=== PATIENT | female | born 1975 | race Caucasian/White ===

== ENCOUNTER 2016-06-03 18:49 | Inpatient (IN) | payer MEDICARE, MEDICAID ==
--- NOTE | 2016-06-03 19:27 | ED ---
Psych HPI - General Chief Complaint: Psychiatric Symptoms Stated Complaint: Petition Time Seen by Provider: 06/03/16 19:06 Source: patient, police, RN notes reviewed Mode of arrival: ambulatory - History of Present Illness Initial Comments: 41 yo female presents to the ER with cc of a petition. The physician patient has a history of bipolar schizoaffective disorder. Patient has been drinking for judgments she is not seeking mental health treatment and they are concerned that she may need for discharge to home. Patient does not know why she is here she denies any suicidal or homicidal thoughts. She states everyone here hates her. She states she strained to the state. She states that she does not need mental health she thinks clearly she has not been seen mental health services. Patient denies any acute health concerns. Patient denies any recent fever, chills, shortness of breath, chest pain, back pain, abdominal pain, nausea vomiting, numbness or tingling, dysuria or hematuria, constipation or diarrhea, headaches or visual changes, or any other current symptoms. - Related Data Home Medications Medication Instructions Recorded Confirmed Dextroamphetamine/Amphetamine 20 mg PO BID 06/03/16 06/03/16 [Adderall] Allergies Allergy/AdvReac Type Severity Reaction Status Date / Time haloperidol [From Haldol] Allergy Unknown Verified 06/03/16 19:38 haloperidol lactate Allergy Unknown Verified 06/03/16 19:38 [From Haldol] paliperidone [From Invega] Allergy Unknown Verified 06/03/16 19:38 Penicillins Allergy Unknown Verified 06/03/16 19:38 quetiapine fumarate Allergy Unknown Verified 06/03/16 19:38 [From Seroquel] zolpidem tartrate Allergy Unknown Verified 06/03/16 19:38 [From Ambien] Review of Systems ROS Statement: Those systems with pertinent positive or pertinent negative responses have been documented in the HPI. ROS Other: All systems not noted in ROS Statement are negative. Past Medical History Past Medical History: No Reported History Additional Past Medical History / Comment(s): ADHD History of Any Multi-Drug Resistant Organisms: None Reported Past Surgical History: No Surgical Hx Reported Additional Past Surgical History / Comment(s): pt not answering questions well Past Anesthesia/Blood Transfusion Reactions: No Reported Reaction Past Psychological History: ADD/ADHD, Schizoaffective Disorder Smoking Status: Current every day smoker Past Alcohol Use History: None Reported, Occasional Additional Past Alcohol Use History / Comment(s): Pt denies any current or past history of SA. Per discharge summary dated 10/25/13 hx of amphetamine abuse. She is a smoker's 10 cigarettes per day since she was 13 years of age. She denies any marijuana or street drug use. She denies any alcohol use or abuse. Past Drug Use History: None Reported Additional Drug Use History / Comment(s): Pt denies any current or past history of SA. - Past Family History Father Additional Family Medical History / Comment(s): Patient refuses to give any information on her family including her mother and father. General Exam Limitations: no limitations General appearance: alert, in no apparent distress Head exam: Present: atraumatic Neck exam: Present: normal inspection. Absent: tenderness, meningismus, lymphadenopathy Respiratory exam: Present: normal lung sounds bilaterally. Absent: respiratory distress, wheezes, rales, rhonchi, stridor Cardiovascular Exam: Present: regular rate, normal rhythm, normal heart sounds. Absent: systolic murmur, diastolic murmur, rubs, gallop, clicks Neurological exam: Present: alert, oriented X3, CN II-XII intact. Absent: motor sensory deficit Psychiatric exam: Absent: homicidal ideation, suicidal ideation Skin exam: Present: warm, dry, intact, normal color. Absent: rash Course Vital Signs 06/03/16 06/03/16 19:02 19:33 Temperature 99.6 F Pulse Rate 126 H 113 H Respiratory 18 18 Rate Blood Pressure 145/104 131/80 O2 Sat by Pulse 98 95 Oximetry Medical Decision Making - Medical Decision Making 41 yo female presents to the ER with cc of position. The patient has no idea why she is here. She denies any suicidal homicidal ideation. Patient states the patient is suffering from poor judgment. This time the patient does not appear in acute medical emergencies. This and patient is cleared to be evaluated by psychiatry. At this time patient does have a certain position on the chart. The patient will be admitted to psychiatry. - Lab Data Lab Results 06/03/16 Range/Units 19:25 Urine Opiates Screen Not Detected (NotDetected) Ur Oxycodone Screen Not Detected (NotDetected) Urine Methadone Screen Not Detected (NotDetected) Ur Propoxyphene Screen Not Detected (NotDetected) Ur Barbiturates Screen Not Detected (NotDetected) U Tricyclic Antidepress Not Detected (NotDetected) Ur Phencyclidine Scrn Not Detected (NotDetected) Ur Amphetamines Screen Not Detected (NotDetected) U Methamphetamines Scrn Not Detected (NotDetected) U Benzodiazepines Scrn Not Detected (NotDetected) Urine Cocaine Screen Not Detected (NotDetected) U Marijuana (THC) Screen Not Detected (NotDetected) Disposition Clinical Impression: Bipolar disorder, Noncompliance with treatment Disposition: TRANSFER TO PSYCH HOSP/UNIT Time of Disposition: 21:01 Decision Date: 06/03/16 Decision Time: 21:01
[2016-06-03] MEDS ORDERED: ZIPRASIDONE 20 MG VIAL IM PRN (22:19)
[2016-06-03] MEDS ORDERED: MAGNESIUM HYDROXIDE 2,400 MG/10 ML CUP PO PRN (22:19)
[2016-06-03] MEDS ORDERED: MAG HYDROX/AL HYDROX/SIMETH 30 ML CUP PO PRN (22:19)
[2016-06-03] MEDS ORDERED: LORazepam 2 MG/ML SYRINGE IM PRN (22:21)
[2016-06-03] MEDS: NICOTINE 14MG/24HR PATCH TRANSDERM SCH (22:31)
[2016-06-03 23:13] VITALS: BMI 39.6
[2016-06-04] MEDS: LORazepam 1 MG TAB PO PRN (00:55)
[2016-06-04 09:15] LABS: Basophils # (A) 0.1 k/uL (0-0.2); Basophils % (A) 1 %; CH 29.7; CHCM 33.2; Eosinophils # (A) 0.1 k/uL (0-0.7); Eosinophils % (A) 1 %; HDW 2.61; HGB 16.3 gm/dL (11.4-16.0); Luc # (Auto) 0.19; Luc % (Auto) 2; Lymphocytes % (A) 23 %; MCH 28.8 pg (25.0-35.0); MCHC 32.1 g/dL (31.0-37.0); MCV 89.8 fL (80.0-100.0); Mean Platelet Volume 6.2; Monocytes # (A) 0.5 k/uL (0-1.0); Monocytes % (A) 6 %; Neutrophils # (A) 5.8 k/uL (1.3-7.7); Neutrophils % (A) 67 %; RBC 5.67 m/uL (3.80-5.40); WBC 8.6 k/uL (3.8-10.6)
[2016-06-04 09:23] LABS: Anion Gap 12 mmol/L; Blood Urea Nitrogen 9 mg/dL (7-17); Calcium 9.2 mg/dL (8.4-10.2); Carbon Dioxide 27 mmol/L (22-30); Chloride 103 mmol/L (98-107); Glucose 103 mg/dL (74-99); Potassium 4.7 mmol/L (3.5-5.1); Sodium 142 mmol/L (137-145)
[2016-06-04 09:42] LABS: Non-African American GFR(MDRD) >60 (>60 ml/min/1.73 sqM)
[2016-06-04] MEDS: NICOTINE 14MG/24HR PATCH TRANSDERM SCH (10:07)
--- NOTE | 2016-06-04 12:14 | P.HP ---
Psychiatric H&P - . H&P Date: 06/04/16 History & Physical: IDENTIFYING DATA: Ms. Wakefield is a 41-year-old female who has a history of a schizoaffective disorder. She presented to [facility] involuntarily A school social worker from [facility] completed a Petition for Mental Health Treatment and Dr. Bates completed the initial Clinical Certificate. HISTORY OF PRESENT ILLNESS: According to the Petition she has a she has been refusing prescribes her psychotropic medications. On the Clinical Certificate Dr. Bates wrote "She was brought to [facility] on 05/01/2016 by [facility] deputy. Since then she has refused to keep to [facility] appointments. She has refused it takes antipsychotic medications. She believes her sister told her to jump out of a window." According to the information obtained by the psychiatric nurse nutrition specialist, Dr. Bates went to the [facility] and arrange for a petition and completed the initial Clinical Certificate. She denied the need for medication and essentially reported that "if only people would stop talking about her and saying mean things she doesn't need medications." In the emergency room she was pleasant but paranoid. She expressed a belief that nurses have been talking bad about her and telling lies about her. I spoke with Dr. bee. He stated he was concerned about her mental status because she had refused to attend 2 scheduled appointments with him. She has refused to take prescribed risperidone. He was concerned about continued decompensation and talked about severe episodes of psychosis when she went extended periods without antipsychotic medications. Ms. Wakefield cannot explain the reason for this hospitalization. She repeatedly stated that she does not have a problem and she has not a danger to herself or others. She was unable to explain the reason for the home visit by Dr. Bates. She stated that she was in an apartment for several months and left at the behest of her mother and sister. She alleged that her mother and sister were telling her to jump out of the window. She alleged that her mother and her sister told her to jump out of a window during telephone conversations (she repeatedly denied that she was experiencing auditory hallucinations). After she left the apartment she went to a friend's house and for an unexplained reason the friend called the [facility]'s Department. The deputy chief magistrate told her that she had refused to leave the friend's home. However, she denied that her friend had asked her to leave. The deputy took her to [facility] who assisted with placement at [facility]. She denied that she has had problems at [facility]. She denied that staff at [facility] have raised concerns about her behavior or mental health. She denied that staff or other residents at [facility] have been harassing her or making life difficult for her. She does not believe that she has a mental illness. She believes that her multiple hospitalizations, involuntary psychiatric treatment and prescriptions of psychotropic medication are the result of a conspiracy by her ex- and her in-laws. Her mother and her sister also conspiring to make people believe that she has a mental illness. She believes that Dr. Bates is "in on the conspiracy ... siding with her in-laws against her". Several times during the interview she stated that she has been off a court order since December and is not obliged to take medication. She stated that the "database programmer analyst" told her that she does not need to take (psychiatric) medications if she does not want to. She denies a need for mental health treatment and does not want to take a psychotropic medication. Several times during the interview she requested a prescription for Adderall. She talked about her difficulty with concentration and attention and boasted about the beneficial effects of Adderall. PAST PSYCHIATRIC HISTORY: Her mental illness appears to developed in her 30s and her first hospitalization was at this facility in March 2008. She presented to Hospital after making suicidal statements to her . The initial assessment described flight of ideas, tangentiality and pressured speech. Since the initial admission she has had approximately 15 admissions to this facility and several to other psychiatric hospitals. Her most recent psychiatric hospitalization appears to have been at this facility in April 2015; her discharge diagnosis was schizoaffective disorder and her discharge medications included Risperdal Consta. According to the information from [facility] she developed galactorrhea from the risperidone. According to Dr. Bates she is most stable when receiving long-acting injectable antipsychotic medications. She is able to function independently at community and does not require inpatient psychiatric care. PAST MEDICAL HISTORY: She has no history of major medical illnesses ALLERGIES: According to EMR she has multiple ALLERGIES including ALLERGIES to Ambien, Seroquel, penicillins, Invega and Haldol. SUBSTANCE USE HISTORY: She described occasional use of alcohol and denied use of drugs including marijuana. She has never attended a substance abuse treatment program.. Tobacco use: She smokes 1/2-1 pack of cigarettes per day; she is not interested in smoking cessation FAMILY PSYCHIATRIC/SUBSTANCE USE HISTORY: According to the record her mother has a history of schizophrenia. She stated that her sister also has a history of mental illness.. LEGAL HISTORY: She is not on parole, proposed probation or has pending charges. According to the court docket from [facility] probate [address] she has had charges for domestic violence, assault and battery, and breaking and entry without salesman/owner's permission. She has had no felony charges. SOCIAL HISTORY: His born and raised in [place]. She stated she attended special education but graduated from high school. She is and her has custody of their 2 children. She has 1 son and a daughter. She has unsupervised visitation of her daughter on Sundays. She is unemployed and receives social security disability. MENTAL STATUS EXAM: She presented as a obese 41-year-old female who was pleasant on approach. She had long disheveled hair. She maintained eye contact and appeared to attend to interview. She had no distinction features or prominent physical abnormalities. He she had a blunted facial expression. She was alert and oriented to person, place and time. She showed no abnormality of psychomotor activity. She had a normal gait and station. Her speech was spontaneous with slight increase in rate. She had no articulation difficulties. Her affect was dysphoric mood consisting of mixture of anxiety, depression and suspiciousness. She denied suicidal ideation or wishes. She denied homicidal ideation. She expressed feelings of hopelessness regard to this hospitalization and the allegedly unfounded belief that she has a mental illness. She obsessed over her ex-, divorce and the belief that her in-laws are conspiring to label her with a mental illness. She did not express ideas of reference. She expressed the organize paranoid beliefs that she is a subject of the conspiracy by her , her in-laws, possibly her mother and sister and Dr. Bates to make her appear as though she has a mental illness and requires mental health treatment. Her thinking was concrete but her associations appeared organized and consistent with her chronic delusional belief. She perseverated on her chronic and organized paranoid beliefs. She did not demonstrate neologisms or blocking. She denied hallucinations and did not appear to be responding to internal stimuli. Global impression of intellect is average to below. She has no insight or understanding of her illness or need for mental health treatment We completed the [facility] Cognitive Assessment. Her total score was 23/30. A score less than 26 is usually considered consistent with cognitive impairment. She demonstrated no impairment in visual spatial or executive functioning. She had 1 error with naming; misidentifying the image of a Lion for [place]. She showed impairments in attention and was not able to repeat 5 digits forward or 3 digits backwards. She had difficulty with language exercises failing to accurately repeat the sentences. However, she showed no impairment in fluid verbal fluency. She gave abstract interpretation of the similarities (training- bicycle and watch-ruler). She remembered 3 of the 5 memory words. She was fully oriented to date, month, year, day, place and city. STRENGTHS: Good physical health, strong support from [facility], stable income, stable housing. WEAKNESSES: Lack of insight and her chronic mental illness, poor compliance with mental health treatment. IMPRESSION: If she is a 41-year-old female who has a well established diagnosis of schizoaffective disorder. She has a family history of mental illness. She has had multiple psychiatric hospitalizations and involuntary psychiatric hospitalizations. She has poor insight or understanding of her illness and has refused mental health treatment. She presented to unit involuntarily with concerns about noncompliance with recommended mental health treatment, paranoia and change of [facility]. Her performance on formal mental status testing is consistent with impairments of attention and concentration. She denies that she has a mental illness or needs would benefit from mental health treatment. She has a fixed and apparently chronic paranoid belief that she is subjective the conspiracy to make it appear as though she has a mental illness and requires mental health treatment. PRINCIPLE DIAGNOSIS: Schizoaffective disorder, noncompliance with mental health treatment RECOMMENDATION: Continue inpatient psychiatric hospitalization for treatment of her chronic mental illness. Complete a psychiatric Clinical Certificate and proceed with involuntary hospitalization. Although her outpatient psychiatrist' s recommendation to start Prolixin Decanoate when we obtain an involuntary treatment order. Treatment with a psychostimulant at this time is not indicated. Continue with lorazepam 1 mg by mouth/IM every 8 hours when necessary for agitation and/or Geodon 20 mg IM twice a day when necessary for agitation. Allergies Allergy/AdvReac Type Severity Reaction Status Date / Time haloperidol [From Haldol] Allergy Unknown Verified 06/04/16 00:11 haloperidol lactate Allergy Unknown Verified 06/04/16 00:11 [From Haldol] paliperidone [From Invega] Allergy Unknown Verified 06/04/16 00:11 Penicillins Allergy Unknown Verified 06/04/16 00:11 quetiapine fumarate Allergy Unknown Verified 06/04/16 00:11 [From Seroquel] zolpidem tartrate Allergy Unknown Verified 06/04/16 00:11 [From Ambien] Vital Signs Temp 98.2 F 06/04/16 02:56 Pulse 78 06/04/16 02:56 Resp 20 06/04/16 02:56 BP 136/68 06/04/16 02:56 Pulse Ox 95 06/04/16 02:56 Intake & Output 06/03/16 06/04/16 06/04/16 18:59 06:59 18:59 Weight 98.43 kg Laboratory Last Values Urine Opiates Screen Not Detected (NotDetected) 06/03/16 19:25 Ur Oxycodone Screen Not Detected (NotDetected) 06/03/16 19:25 Urine Methadone Screen Not Detected (NotDetected) 06/03/16 19:25 Ur Propoxyphene Screen Not Detected (NotDetected) 06/03/16 19:25 Ur Barbiturates Screen Not Detected (NotDetected) 06/03/16 19:25 U Tricyclic Antidepress Not Detected (NotDetected) 06/03/16 19:25 Ur Phencyclidine Scrn Not Detected (NotDetected) 06/03/16 19:25 Ur Amphetamines Screen Not Detected (NotDetected) 06/03/16 19:25 U Methamphetamines Scrn Not Detected (NotDetected) 06/03/16 19:25 U Benzodiazepines Scrn Not Detected (NotDetected) 06/03/16 19:25 Urine Cocaine Screen Not Detected (NotDetected) 06/03/16 19:25 U Marijuana (THC) Screen Not Detected (NotDetected) 06/03/16 19:25 06/04/16 07:57 06/04/16 10:06 06/04/16 10:27 06/04/16 12:07
[2016-06-04] MEDS: ACETAMINOPHEN TAB 325 MG TAB PO PRN (23:01)
[2016-06-05] MEDS: NICOTINE 14MG/24HR PATCH TRANSDERM SCH ×2 (10:19→16:38)
--- NOTE | 2016-06-05 14:03 | P.PN ---
Progress Note - Text SUBJECTIVE: Since he was distress when I informed her that the plan is to proceed with involuntary hospitalization and seek a court order for inpatient outpatient mental health treatment. She perseverated on her fixed and chronic belief that she does not have a mental illness and that her current predicament (hospitalizations, involuntary treatment orders and ongoing mental health treatment) was caused by her ex-. She frequently spoke as thought she believes that her ex- continues to influence the mental health system to keep her in treatment against her will. She denied problems or concerns and repeatedly stated that she is doing well with no mental health treatment and no psychiatric prescriptions. She believes that her outpatient psychiatrist is fabricating her history of mental illness and psychiatric problems. Her plan is to save money and move to [place]. She has gone so far as to identify potential apartments and plans to secure apartment before she leaves for [place]. She believes that leaving [place] is the only way for her to escape the arm of the mental health system. OBJECTIVE: She presented as a moderately obese 41-year-old woman who looks younger than his stated age. She had long somewhat unkept hair. She maintained eye contact and attended to the interview. She had no distinguishing features or prominent physical abnormalities. She had a distressed facial expression. She showed no abnormality of psychomotor activity. Her speech was spontaneous with slight increase in rate and rhythm. Her affect was dysphoric and consistent with her mood. She denied suicidal ideation or wishes. She denied homicidal ideation. She denied feeling depressed but expresses feelings of hopelessness regarding her inability to escape the mental system. She ruminates about the ongoing and chronic fixed delusional belief that she is subjective conspiracy involving her ex-, her in-laws and the mental health system to make her appear as though she has a mental illness. She did not express ideas of reference. Her thinking was abstract and associations were logical and consistent with her chronic beliefs. She did not demonstrate neologisms or blocking. She denied hallucinations and did not appear to be responding to internal stimuli. ASSESSMENT: She continues to deny the need for mental health treatment or the prescription of psychotropic medications. PLAN: We completed the second clinical certain and submitted necessary paperwork to proceed with involuntary hospitalization. She has a probate hearing scheduled for 06/10/2016 at 1:30 PM. Continue to encourage participation in therapeutic groups and activities. Evaluate clinical status response to treatment daily basis. Continue to engage in a discussion of mental health treatment.
[2016-06-06] MEDS: ACETAMINOPHEN TAB 325 MG TAB PO PRN (01:55)
[2016-06-06] MEDS: NICOTINE 14MG/24HR PATCH TRANSDERM SCH ×2 (09:55→10:17)
--- NOTE | 2016-06-06 14:37 | P.PN ---
Progress Note - Text SUBJECTIVE: Noelle continued to complain about this hospitalization. She denies the need for inpatient hospitalization or psychotropic medications (with the exception of a psychostimulant such as Adderall). She was less preoccupied about her chronic and fixed belief that her ex-, her ex-in-laws and community mental health have conspired to make it appear as though she has a mental illness. She denies problems with sleep or appetite. She enjoys participation in therapeutic groups and activities. OBJECTIVE: She presented as a neatly dressed and groomed 41-year-old moderately obese female who was pleasant on approach. She maintained eye contact and engaged in interview. She had no distinguishing features or prominent physical abnormalities. She had a bright facial expression. She was alert and oriented to person, place and time. She showed no abnormality of psychomotor behavior. She had no abnormal involuntary movements. She had a normal gait and station. Her speech was spontaneous normal rate, rhythm and volume. Her affect was bright, stable and appropriate. She denied suicidal ideation or wishes. She denied homicidal ideation. She denied depressive cognitions such as hopelessness, helplessness and worthlessness. She did not express obsessions, phobias, or ideas of reference. She was not overtly paranoid, suspicious or guarded. Her thinking was concrete but her associations were coherent and logical. She denied hallucinations and did not appear to be responding to internal stimuli. ASSESSMENT: She shows no overt psychotic symptoms other than the chronic belief that she does not have a mental illness, does not require mental health treatment and that she has been falsely labeled with a mental illness. PLAN: We are awaiting the probate hearing per the recommendation of her community mental health treatment team.
[2016-06-07] MEDS: NICOTINE 14MG/24HR PATCH TRANSDERM SCH (10:55)
--- NOTE | 2016-06-07 14:04 | CONS ---
DATE OF CONSULTATION: 06/04/2016 CHIEF COMPLAINT: Schizoaffective disorder. HISTORY OF PRESENT ILLNESS: This is another psych admission for this 41-year-old white female patient. She is very difficult to get any history from. She has apparently been petitioned in. She does not know why she is in the hospital. REVIEW OF SYSTEMS: She denies any headaches, focal neurologic deficits, change in vision or hearing, cough, chest pain, hemoptysis, heart disease, murmurs, rheumatic fever, hypertension, abdominal pain, vomiting, diarrhea, hematemesis, melena, pancreatitis, ulcer disease, food intolerance, diarrhea, constipation, jaundice, hepatitis, cirrhosis, hematuria, frequency, urgency, renal disease, bone or joint problems, diabetes, etc. Past medical history, family history and personal and social histories reveal that she is not allergic to any medication. She has not been taking any medicines prior to coming in. She has had 2 pregnancies and 2 deliveries, apparently. She had an ectopic removed according to the surgical history. She does smoke. PHYSICAL EXAMINATION: Blood pressure 132/90, pulse 68, respirations 12 and she is afebrile. GENERAL: She appeared to be well developed, well nourished, in no acute distress. She was overweight. Skin color is normal and the skin is warm and dry. Lymph nodes are not enlarged. Head, ears, eyes, nose, mouth, and throat were normal. Neck veins are not distended. Thyroid is not enlarged. Chest is clear. Cardiac exam is normal. Abdomen is soft and nontender. Extremities are normal. IMPRESSION: Schizoaffective disorder. RECOMMENDATIONS: None at this time.
--- NOTE | 2016-06-07 16:17 | P.PN ---
Progress Note - Text Interval history: Patient seen in cross coverage today for Dr. Balderas. [facility] by history [facility] and was [facility]arily admitted to the inpatient psychiatric unit. She reports that her previous treatment order with [facility] ended in December 2015. She makes reference to wanting to be out of the hospital. She relays that prior to being at the [facility] she had some experiences with people who turned on her and then subsequently went to the [facility]. She is not currently on psychotropic medication. Mental status exam: She is alert and cooperative with the interview. Her speech is fluent, not rapid or pressured. She describes her mood is doing okay. She denies any thoughts of harm to self others. She does not report any hallucinations she denies any paranoid thoughts. She does not show any current agitation. Plan: We'll continue to monitor for psychiatric symptoms. We'll continue to cover this patient for Dr. Balderas through the weekend.
[2016-06-08] MEDS: NICOTINE 14MG/24HR PATCH TRANSDERM SCH (10:54)
--- NOTE | 2016-06-08 15:50 | P.PN ---
Progress Note - Text Interval history: Patient seen in [facility] today for Dr. Balderas. She came to the session after just having been in a group. She is not currently on any standing psychotropic medication. Mental status exam: She is alert and cooperative with the interview. Her affect shows range. When asked regarding her mood she says "I'm 41, I need a man." He denies any paranoid thoughts. She denies any thoughts of harm to self or others. She denies any hallucinations. She does not show any agitation. Plan: Dr. Balderas will be resuming care this patient starting tomorrow. We' ll continue to monitor for any psychiatric symptoms.
[2016-06-09] MEDS: NICOTINE 14MG/24HR PATCH TRANSDERM SCH (08:53)
--- NOTE | 2016-06-09 12:42 | P.PN ---
Progress Note - Text SUBJECTIVE: I reviewed the medical record, discuss treatment and treatment plan during team meeting and interviewed Ms. Wakefield. She is a 41-year-old female with history of a schizophrenia. She presented to unit [facility]arily from an [facility]. [facility] initiated the petition because she has failed to keep scheduled outpatient appointments and refused to take prescribed psychotropic medications. Since admission she has shown no behavioral problems. She is pleasant and has engaged in therapeutic groups and activities. She denied problems or concerns other than wishing to be discharged in order to "resumed my life". She denied having auditory or visual hallucinations, ideas reference, thought insertion, thought broadcasting or thought control. During our interview he did not perseverate on her chronic paranoid beliefs that she is subject to conspiracy to make it appear as though she has a mental illness. OBJECTIVE: She presented as a casually groomed 41-year-old moderately obese female who was pleasant on approach. She maintained eye contact and attended to the interview. She had no distinguishing features or prominent physical abnormalities. She had a bright facial expression. She was alert and oriented to person, place and time. She showed no abnormality of psychomotor activity. She had a normal gait and station. Her speech was spontaneous with normal rate, rhythm and volume. She had no articulation difficulties. Her affect was bright, stable and appropriate. She denied suicidal ideation or wishes. She denied homicidal ideation. She denied depressive cognitions such as hopelessness, helplessness and worthlessness. She did not express ideas reference or paranoid ideation. Her thinking was concrete but her associations were coherent, logical and goal directed. She denied hallucinations and did not appear as though she were responding to internal stimuli ASSESSMENT: Overall she appears minimally mentally ill. PLAN: She has a probate hearing 04/09/2017 at 1:30 PM. We'll follow the recommendations are to mental health and if she receives an involuntary order start oral Prolixin with plan to transition to Prolixin decanoate. Continue to encourage participation in therapeutic groups and activities. Evaluate clinical status and response to treatment daily basis.
[2016-06-10] MEDS: NICOTINE 14MG/24HR PATCH TRANSDERM SCH (08:28)
[2016-06-10] MEDS: NICOTINE 7MG/24HR PATCH TRANSDERM SCH (09:37)
--- NOTE | 2016-06-10 15:29 | P.PN ---
Progress Note - Text SUBJECTIVE: I reviewed the medical record, interviewed Ms. Wakefield and discussed her treatment and treatment plan during team meeting. She had a probate hearing at 1:30 this afternoon and received a 60/90 day combined treatment order. She was pleasant on approach until we discussed the probate hearing and the recommendation for treatment. She became acutely agitated and reiterated that she does not have a mental illness and does not need mental health treatment. She complained about services through [facility] and alleged that her outpatient psychiatrist as well as her in-laws have conspired against her. After she returned from the probate hearing she demanded discharge. I explained that we would need to start Prolixin once we establish that she is not ALLERGIC then we'll begin Prolixin decanoate. She demanded to receive the Prolixin decanoate immediately and be discharged back to the [facility]. When I told her that she no longer has about [facility] she became acutely distressed and accused us is lying to her. She stated she has money and will find a hotel room. OBJECTIVE: She presented as a casually groomed mildly obese 41-year-old woman. Who was initially pleasant but became increasingly distressed when he talked about the court hearing and the requirement for mental health treatment. She had a distressed facial expression. She became increasingly agitated as her discussing the mandates for mental health treatment. Her speech became loud with increased rate and rhythm. Her affect was labile and at times intense and appropriate. She continues to maintain that she has no thoughts of suicide. She denied homicidal ideation. She denied feeling hopeless, helpless or worthless. She ruminates about her belief that she is subject to conspiracy to make it appear as though she has a mental illness. She did not express ideas reference but remained suspicious and paranoid. He towards [facility]. Her thinking was concrete but his associations were coherent and logical. She denied hallucinations and did not appear to be responding to internal stimuli. ASSESSMENT: Following the probate hearing she has agreed to begin Prolixin. She continues to maintain chronic and well-established paranoid delusional beliefs regarding her mental illness and need for treatment. PLAN: Continue inpatient psychiatric treatment for treatment of her chronic psychosis. Begin Prolixin 1 mg by mouth and Prolixin decanoate 0.5 milligrams IM tomorrow. Coordinate discharge with [facility] including placement in an appropriate setting. Continue just 15 minute checks. Encourage continued participation in therapeutic groups and activities. Evaluate clinical status and response to treatment on a daily basis.
[2016-06-11] MEDS: LORazepam 1 MG TAB PO PRN (00:05)
[2016-06-11 03:32] VITALS: TEMP 98
[2016-06-11] MEDS: NICOTINE 7MG/24HR PATCH TRANSDERM SCH (09:41)
[2016-06-11] MEDS ORDERED: fluPHENAZine DECANOATE 25 MG/ML 5ML MDV IM ONE (13:45)
--- NOTE | 2016-06-11 13:52 | P.PN ---
Progress Note - Text SUBJECTIVE: I reviewed the medical record, interviewed Ms. Wakefield and discussed her treatment and treatment plan during team meeting. She remains angry over the voluntary hospitalization process and angry that she is required to take psychotropic medication. She repeated her fixed belief that she does not have a mental illness and that her ex- and the mental health system are conspiring to make it appear as though he has a mental illness. She also believes that some social security administration is colluding with [facility] because they have awarded her disability for a psychiatric illness when she "does not have a mental illness." She agreed to take or Prolixin and agreed to start Prolixin decanoate. She denied side effects to initial 1 mg dose of Prolixin. OBJECTIVE: She presented as a casually groomed 41-year-old woman who was moderately obese. She maintained eye contact and attended to the interview. She had a distressed facial expression. She was alert and oriented to person, place and time. She was not agitated or restless. Her speech was spontaneous with increased rate and volume. Her affect was labile and at times intense but appropriate to her mood. She denied suicidal ideation ideation or wishes. She denied homicidal ideation. She denied depressive cognitions including hopelessness, helplessness and worthlessness. She ruminated about her problems with the mental health system and denied the need for mental health treatment. She did not express ideas of reference. Her thinking was concrete but her associations were coherent and logical. She denied hallucinations and did not appear to be responding to internal stimuli. ASSESSMENT: She received a 60/90 day combined involuntary treatment order following her probate hearing on 06/10/2016. She has a fixed and well organized chronic delusional belief without any apparent acute psychotic symptoms. PLAN: Continue inpatient hospitalization until able to secure appropriate placement. Continue Prolixin 1 mg daily. Begin Prolixin decanoate 12.5 mg IM today. Coordinate discharge with [facility]. Encouraged continued participation in therapeutic groups and activities. Evaluate clinical status response to treatment daily basis.
[2016-06-12 05:09] VITALS: BP 113/72; PULSE 91; RESP 12
[2016-06-12] MEDS: NICOTINE 7MG/24HR PATCH TRANSDERM SCH (09:39)
--- NOTE | 2016-06-12 16:13 | P.DS ---
Providers Date of admission: 06/03/16 21:57 Attending physician: Mohit Balderas MD Consults: 06/03/16 22:19 Consult Physician Routine Consulting Provider: Jacob William Consult Reason/Comments: h and p, eval and tx, r/o metabolic disorder Do you want consulting provider notified?: Yes, Notify in am Primary care physician: Jacob William - Discharge Diagnosis(es) (1) Schizoaffective disorder Current Visit: Yes Status: Chronic Priority: High (2) Noncompliance with treatment Current Visit: Yes Status: Chronic Priority: High Hospital Course: Ms. Wakefield is a 41-year-old female who has a history of a schizoaffective disorder. She presented to [facility] involuntarily A social contact worker from [facility] completed a Petition for Mental Health Treatment and Dr. Bates completed the initial Clinical Certificate. According to the Petition she has a she has been refusing prescribes her psychotropic medications. On the Clinical Certificate Dr. Bates wrote "She was brought to [facility] on 05/01/2016 by [facility]'s deputy. Since then she has refused to keep to [facility] appointments. She has refused it takes antipsychotic medications. She believes her sister told her to jump out of a window." According to the information obtained by the psychiatric nurse application release manager, Dr. Bates went to the [facility] and arrange for a petition and completed the initial Clinical Certificate. She denied the need for medication and essentially reported that "if only people would stop talking about her and saying mean things she doesn't need medications." In the emergency room she was pleasant but paranoid. She expressed a belief that nurses have been talking bad about her and telling lies about her. I spoke with Dr. bee. He stated he was concerned about her mental status because she had refused to attend 2 scheduled appointments with him. She has refused to take prescribed risperidone. He was concerned about continued decompensation and talked about severe episodes of psychosis when she went extended periods without antipsychotic medications. Ms. Wakefield cannot explain the reason for this hospitalization. She repeatedly stated that she does not have a problem and she has not a danger to herself or others. She was unable to explain the reason for the home visit by Dr. Bates. She stated that she was in an apartment for several months and left at the behest of her mother and sister. She alleged that her mother and sister were telling her to jump out of the window. She alleged that her mother and her sister told her to jump out of a window during telephone conversations (she repeatedly denied that she was experiencing auditory hallucinations). After she left the apartment she went to a friend's house and for an unexplained reason the friend called the [facility]'s Department. The diving coach told her that she had refused to leave the friend's home. However, she denied that her friend had asked her to leave. The deputy took her to [facility] who assisted with placement at [facility]. She denied that she has had problems at [facility]. She denied that staff at [facility] have raised concerns about her behavior or mental health. She denied that staff or other residents at [facility] have been harassing her or making life difficult for her. She does not believe that she has a mental illness. She believes that her multiple hospitalizations, involuntary psychiatric treatment and prescriptions of psychotropic medication are the result of a conspiracy by her ex- and her in-laws. Her mother and her sister also conspiring to make people believe that she has a mental illness. She believes that Dr. Bates is "in on the conspiracy ... siding with her in-laws against her". Several times during the interview she stated that she has been off a court order since December and is not obliged to take medication. She stated that the "recreation activities coordinator" told her that she does not need to take (psychiatric) medications if she does not want to. She denies a need for mental health treatment and does not want to take a psychotropic medication. Several times during the interview she requested a prescription for Adderall. She talked about her difficulty with concentration and attention and boasted about the beneficial effects of Adderall. We admitted her to the psychiatric unit involuntarily. We completed the second Clinical Certificate and submitted the Petition and supporting documents to probate court. She refused psychotropic medications because she does not believe that she has a mental illness. She has a chronic and fixed belief that she is subjective of a conspiracy by [facility] and her ex-in-laws to make it appear as though she has a mental illness. She also believes that [employer] is complicit with the conspiracy because they have awarded her Social Security disability even though she does not have a mental illness. She was pleasant and cooperative otherwise throughout the hospitalization. She participated in therapeutic groups and activities. She had a probate hearing on 06/10/2016 and received a 60/90 day combined treatment order. Following the involuntary treatment order she accepted Prolixin 1 mg daily. The following day we administered 5 mg of Prolixin decanoate without incident. [facility] arranged for her to return to the [facility]. At the time of discharge she continued to maintain she does not have a mental illness and has been unfairly treated by the [facility]. However she agreed to continue with prescribed medication because she is "court ordered". Patient Condition at Discharge: Good Plan - Discharge Summary New Discharge Prescriptions: Nicotine 7Mg/24Hr Patch [Habitrol] 1 patch TRANSDERM DAILY #14 patch fluPHENAZine [Prolixin] 1 mg PO DAILY #30 tab Discharge Medication List Nicotine 7Mg/24Hr Patch [Habitrol] 1 patch TRANSDERM DAILY #14 patch 06/12/16 [ Rx] fluPHENAZine [Prolixin] 1 mg PO DAILY #30 tab 06/12/16 [Rx] Follow up Appointment(s)/Referral(s[facility] - 06/17/16 4:40 pm (Dr Bates) [facility] [Outside] - 06/13/16 11:15 am ([facility] with Surendra Garrison) None,Stated [REFERRING] - 1-2 days Patient Instructions/Handouts: How to Stop Smoking (DC), Bipolar Disorder (DC) , Schizoaffective Disorder (DC), Generalized Anxiety Disorder (DC) Discharge Disposition: HOME SELF-CARE
== END 2016-06-12 17:36 | disposition home or self-care (01) | DRG 885 ==
LOC: EC 18:49 → 3MHU 21:57
PROVIDERS: ADMIT Psychiatry & Neurology Psychiatry; ATTEND Psychiatry & Neurology Psychiatry
DX: F25.0 Schizoaffective disorder, bipolar type (principal); F17.210 Nicotine dependence, cigarettes, uncomplicated; F90.9 Attention-deficit hyperactivity disorder, unspecified type; Z81.8 Family history of other mental and behavioral disorders; Z88.0 Allergy status to penicillin; Z88.8 Allergy status to other drugs, medicaments and biological substances
CPT/HCPCS: 80048; 80306; 82075; 84443; 85025; 99285

== ENCOUNTER 2018-07-13 23:22 | Emergency (ER) | payer MEDICARE, OTHER ==
--- NOTE | 2018-07-13 23:55 | ED ---
Psych HPI - General Chief Complaint: Psychiatric Symptoms Stated Complaint: Mental Health Time Seen by Provider: 07/13/18 23:35 Source: patient Mode of arrival: ambulatory - History of Present Illness Initial Comments: Is a 43-year-old female with extensive psychiatric history is brought to the emergency department today by police with a pickup order. Initially patient stated that she didn't know why she is being picked up but then she did admit that she has been noncompliant with her home medications. Patient denies any acute complaints she denies any suicidal or homicidal ideation. She states that she's been tending to activities of daily living she's been bathing keep clean. - Related Data Home Medications Medication Instructions Recorded Confirmed ALPRAZolam [Xanax] 0.5 mg PO HS PRN 07/14/18 07/14/18 Dextroamphetamine/Amphetamine 20 mg PO BID 07/14/18 07/14/18 [Adderall] Lurasidone [Latuda] 40 mg PO DAILY 07/14/18 07/14/18 Allergies Allergy/AdvReac Type Severity Reaction Status Date / Time haloperidol [From Haldol] Allergy Unknown Verified 07/14/18 10:28 haloperidol lactate Allergy Unknown Verified 07/14/18 10:28 [From Haldol] paliperidone [From Invega] Allergy Unknown Verified 07/14/18 10:28 Penicillins Allergy Unknown Verified 07/14/18 10:28 quetiapine fumarate Allergy Unknown Verified 07/14/18 10:28 [From Seroquel] zolpidem tartrate Allergy Unknown Verified 07/14/18 10:28 [From Ambien] Review of Systems ROS Statement: Those systems with pertinent positive or pertinent negative responses have been documented in the HPI. ROS Other: All systems not noted in ROS Statement are negative. Past Medical History Past Medical History: No Reported History Additional Past Medical History / Comment(s): ADHD History of Any Multi-Drug Resistant Organisms: None Reported Past Surgical History: No Surgical Hx Reported Additional Past Surgical History / Comment(s): pt not answering questions well Past Anesthesia/Blood Transfusion Reactions: No Reported Reaction Past Psychological History: ADD/ADHD, Schizoaffective Disorder Smoking Status: Current every day smoker Past Alcohol Use History: Occasional Past Drug Use History: Marijuana - Past Family History Father Additional Family Medical History / Comment(s): Patient refuses to give any information on her family including her mother and father. General Exam - General Exam Comments Initial Comments: Physical Exam GENERAL: Patient is well-developed and well-nourished. Patient is nontoxic and well- hydrated and is in no distress. HENT: Normocephalic, Atraumatic. EYES: PERRL, EOMI PULMONARY: Unlabored respirations. No audible rales rhonchi or wheezing was noted. CARDIOVASCULAR: There is a regular rate and rhythm without any murmurs gallops or rubs. ABDOMEN: Soft and nontender with normal bowel sounds. SKIN: Psoriatic rash : Deferred NEUROLOGIC: Patient is alert and oriented x3. Moving all extremities spontaneously MUSCULOSKELETAL: Normal extremities with adequate strength and full range of motion. No lower extremity swelling or edema. No calf tenderness. PSYCHIATRIC: Odd affect, denies SI/HI Limitations: no limitations Limitations: altered mental status Course Vital Signs 07/13/18 07/14/18 07/14/18 23:27 06:00 07:15 Temperature 98.7 F 98.4 F Pulse Rate 91 84 Respiratory 18 18 16 Rate Blood Pressure 113/81 130/94 O2 Sat by Pulse 96 95 Oximetry 07/14/18 08:00 Temperature Pulse Rate Respiratory 18 Rate Blood Pressure O2 Sat by Pulse Oximetry Medical Decision Making - Medical Decision Making She was seen and evaluated history is obtained from the patient and pickers material handlers order Patient with psychiatric history noncompliant with her home medications presenting via PD with a pickup order. Review of paperwork does reveal that it is from 2018 and not a current pickers material handlers order EPS evaluated patient, she is stable for out patient care from their standpoint, however they state we can contact [facility] in the morning. Patient was ordered a regular diet Patient care was signed out to oncoming physician at 7 AM Per the day shift doctor patient was evaluated by [facility] and subsequently discharged home in stable condition. - Lab Data Result diagrams: 07/14/18 00:25 07/14/18 01:20 Lab Results 07/14/18 07/14/18 07/14/18 Range/Units 00:25 01:20 06:00 WBC 9.7 (3.8-10.6) k/uL RBC 5.00 (3.80-5.40) m/uL Hgb 14.7 (11.4-16.0) gm/dL Hct 43.6 (34.0-46.0) % MCV 87.2 (80.0-100.0) fL MCH 29.4 (25.0-35.0) pg MCHC 33.7 (31.0-37.0) g/dL RDW 14.8 (11.5-15.5) % Plt Count 344 (150-450) k/uL Neutrophils % 67 % Lymphocytes % 23 % Monocytes % 5 % Eosinophils % 3 % Basophils % 1 % Neutrophils # 6.5 (1.3-7.7) k/uL Lymphocytes # 2.3 (1.0-4.8) k/uL Monocytes # 0.5 (0-1.0) k/uL Eosinophils # 0.3 (0-0.7) k/uL Basophils # 0.1 (0-0.2) k/uL Sodium 138 (137-145) mmol/L Potassium 4.3 (3.5-5.1) mmol/L Chloride 105 (98-107) mmol/L Carbon Dioxide 27 (22-30) mmol/L Anion Gap 6 mmol/L BUN 12 (7-17) mg/dL Creatinine 0.65 (0.52-1.04) mg/dL Est GFR (CKD-EPI)AfAm >90 (>60 ml/min/1.73 sqM) Est GFR (CKD-EPI)NonAf >90 (>60 ml/min/1.73 sqM) Glucose 102 H (74-99) mg/dL Calcium 9.0 (8.4-10.2) mg/dL Total Bilirubin 0.4 (0.2-1.3) mg/dL AST 19 (14-36) U/L ALT 29 (9-52) U/L Alkaline Phosphatase 73 (38-126) U/L Total Protein 6.8 (6.3-8.2) g/dL Albumin 3.7 (3.5-5.0) g/dL Urine Color Yellow Urine Appearance Cloudy H (Clear) Urine pH 7.0 (5.0-8.0) Ur Specific [place] 1.014 (1.001-1.035) Urine Protein Negative (Negative) Urine Glucose (UA) Negative (Negative) Urine Ketones Negative (Negative) Urine Blood Negative (Negative) Urine Nitrite Negative (Negative) Urine Bilirubin Negative (Negative) Urine Urobilinogen <2.0 (<2.0) mg/dL Ur Leukocyte Esterase Large H (Negative) Urine RBC 2 (0-5) /hpf Urine WBC 24 H (0-5) /hpf Ur Squamous Epith Cells 7 H (0-4) /hpf Urine Mucus Rare H (None) /hpf Urine HCG, Qual (Not Detectd) Urine Opiates Screen Not Detected (NotDetected) Ur Oxycodone Screen Not Detected (NotDetected) Urine Methadone Screen Not Detected (NotDetected) Ur Propoxyphene Screen Not Detected (NotDetected) Ur Barbiturates Screen Not Detected (NotDetected) U Tricyclic Antidepress Not Detected (NotDetected) Ur Phencyclidine Scrn Not Detected (NotDetected) Ur Amphetamines Screen Detected H (NotDetected) U Methamphetamines Scrn Not Detected (NotDetected) U Benzodiazepines Scrn Detected H (NotDetected) Urine Cocaine Screen Not Detected (NotDetected) U Marijuana (THC) Screen Not Detected (NotDetected) 07/14/18 Range/Units 06:00 WBC (3.8-10.6) k/uL RBC (3.80-5.40) m/uL Hgb (11.4-16.0) gm/dL Hct (34.0-46.0) % MCV (80.0-100.0) fL MCH (25.0-35.0) pg MCHC (31.0-37.0) g/dL RDW (11.5-15.5) % Plt Count (150-450) k/uL Neutrophils % % Lymphocytes % % Monocytes % % Eosinophils % % Basophils % % Neutrophils # (1.3-7.7) k/uL Lymphocytes # (1.0-4.8) k/uL Monocytes # (0-1.0) k/uL Eosinophils # (0-0.7) k/uL Basophils # (0-0.2) k/uL Sodium (137-145) mmol/L Potassium (3.5-5.1) mmol/L Chloride (98-107) mmol/L Carbon Dioxide (22-30) mmol/L Anion Gap mmol/L BUN (7-17) mg/dL Creatinine (0.52-1.04) mg/dL Est GFR (CKD-EPI)AfAm (>60 ml/min/1.73 sqM) Est GFR (CKD-EPI)NonAf (>60 ml/min/1.73 sqM) Glucose (74-99) mg/dL Calcium (8.4-10.2) mg/dL Total Bilirubin (0.2-1.3) mg/dL AST (14-36) U/L ALT (9-52) U/L Alkaline Phosphatase (38-126) U/L Total Protein (6.3-8.2) g/dL Albumin (3.5-5.0) g/dL Urine Color Urine Appearance (Clear) Urine pH (5.0-8.0) Ur Specific [place] (1.001-1.035) Urine Protein (Negative) Urine Glucose (UA) (Negative) Urine Ketones (Negative) Urine Blood (Negative) Urine Nitrite (Negative) Urine Bilirubin (Negative) Urine Urobilinogen (<2.0) mg/dL Ur Leukocyte Esterase (Negative) Urine RBC (0-5) /hpf Urine WBC (0-5) /hpf Ur Squamous Epith Cells (0-4) /hpf Urine Mucus (None) /hpf Urine HCG, Qual Not Detected (Not Detectd) Urine Opiates Screen (NotDetected) Ur Oxycodone Screen (NotDetected) Urine Methadone Screen (NotDetected) Ur Propoxyphene Screen (NotDetected) Ur Barbiturates Screen (NotDetected) U Tricyclic Antidepress (NotDetected) Ur Phencyclidine Scrn (NotDetected) Ur Amphetamines Screen (NotDetected) U Methamphetamines Scrn (NotDetected) U Benzodiazepines Scrn (NotDetected) Urine Cocaine Screen (NotDetected) U Marijuana (THC) Screen (NotDetected) Disposition Clinical Impression: Noncompliance with treatment Disposition: HOME SELF-CARE Condition: Stable Instructions (If sedation given, give patient instructions): Schizophrenia (ED) Is patient prescribed a controlled substance at d/c from ED?: No Referrals: Jacbo William MD [Primary Care Provider] - 1-2 days
[2018-07-14 00:39] LABS: Basophils # (A) 0.1 k/uL (0-0.2); Basophils % (A) 1 %; Eosinophils # (A) 0.3 k/uL (0-0.7); Eosinophils % (A) 3 %; HCT 43.6 % (34.0-46.0); HGB 14.7 gm/dL (11.4-16.0); Lymphocytes # (A) 2.3 k/uL (1.0-4.8); Lymphocytes % (A) 23 %; MCH 29.4 pg (25.0-35.0); MCHC 33.7 g/dL (31.0-37.0); MCV 87.2 fL (80.0-100.0); Mean Platelet Volume 6.6; Monocytes # (A) 0.5 k/uL (0-1.0); Monocytes % (A) 5 %; Neutrophils # (A) 6.5 k/uL (1.3-7.7); Neutrophils % (A) 67 %; Platelet Count 344 k/uL (150-450); RDW 14.8 % (11.5-15.5); WBC 9.7 k/uL (3.8-10.6)
[2018-07-14 01:34] LABS: ALT 29 U/L (9-52); AST 19 U/L (14-36); Albumin 3.7 g/dL (3.5-5.0); Alkaline Phosphatase 73 U/L (38-126); Anion Gap 6 mmol/L; Blood Urea Nitrogen 12 mg/dL (7-17); Carbon Dioxide 27 mmol/L (22-30); Chloride 105 mmol/L (98-107); Glucose 102 mg/dL (74-99); Potassium 4.3 mmol/L (3.5-5.1); Sodium 138 mmol/L (137-145); Total Bilirubin 0.4 mg/dL (0.2-1.3); Total Protein 6.8 g/dL (6.3-8.2)
[2018-07-14 06:08] VITALS: BP 130/94; TEMP 98.4
[2018-07-14 06:16] LABS: Appearance,Urine Cloudy (Clear); Bilirubin,Urine Negative (Negative); Blood,Urine Negative (Negative); Color,Urine Yellow; Glucose,Urine (UA) Negative (Negative); Ketones,Urine Negative (Negative); Leukocyte Esterase,Urine Large (Negative); Mucus,Urine Rare /hpf; Nitrite,Urine Negative (Negative); Protein,Urine Negative (Negative); RBC,Urine 2 /hpf (0-5); Specific Gravity,Urine 1.014 (1.001-1.035); Squamous Epithelial Cell,Urine 7 /hpf (0-4); Urobilinogen,Urine <2.0 mg/dL (<2.0); WBC,Urine 24 /hpf (0-5)
[2018-07-14 06:28] LABS: Amphetamine Screen,Urine Detected (NotDetected); Barbiturate Screen,Urine Not Detected (NotDetected); Benzodiazepines Screen,Urine Detected (NotDetected); Cocaine Screen,Urine Not Detected (NotDetected); Methadone Screen, Urine Not Detected (NotDetected); Opiate Screen,Urine Not Detected (NotDetected); Oxycodone Screen, Urine Not Detected (NotDetected); Phencyclidine Screen,Urine Not Detected (NotDetected); Tricyclic Antidepressant,Urine Not Detected (NotDetected); Urn Cannabinoid Scrn Not Detected (NotDetected)
[2018-07-14] MEDS ORDERED: fluPHENAZine DECANOATE 25 MG/ML 5ML MDV IM ONE (10:43)
[2018-07-15 08:23] VITALS: PULSE 84; RESP 18
== END 2018-07-14 12:15 | disposition home or self-care (01) ==
LOC: EC 23:22
DX: Z91.19 Patient's noncompliance with other medical treatment and regimen (principal); Z91.14 Patient's other noncompliance with medication regimen; F90.9 Attention-deficit hyperactivity disorder, unspecified type; F25.9 Schizoaffective disorder, unspecified; F17.200 Nicotine dependence, unspecified, uncomplicated; Z79.899 Other long term (current) drug therapy; Z88.0 Allergy status to penicillin; Z88.8 Allergy status to other drugs, medicaments and biological substances
CPT/HCPCS: 82075; 36415; 80053; 85025; 81001; 81025; 80306; 99284; 96372; J2680

== ENCOUNTER 2019-01-14 13:08 | Emergency (ER) | payer MEDICARE, OTHER ==
[2019-01-14 13:17] VITALS: RESP 18
[2019-01-14 13:57] LABS: Amphetamine Screen,Urine Not Detected (NotDetected); Barbiturate Screen,Urine Not Detected (NotDetected); Benzodiazepines Screen,Urine Not Detected (NotDetected); Cocaine Screen,Urine Not Detected (NotDetected); Methadone Screen, Urine Not Detected (NotDetected); Opiate Screen,Urine Not Detected (NotDetected); Oxycodone Screen, Urine Not Detected (NotDetected); Phencyclidine Screen,Urine Not Detected (NotDetected); Tricyclic Antidepressant,Urine Not Detected (NotDetected); Urn Cannabinoid Scrn Not Detected (NotDetected)
--- NOTE | 2019-01-14 15:12 | ED ---
Psych HPI - General Chief Complaint: Psychiatric Symptoms Stated Complaint: Mental health Time Seen by Provider: 01/14/19 13:18 Source: patient Mode of arrival: ambulatory - History of Present Illness Initial Comments: This 44-year-old white female presents with a complaint of depression. She states that she recently became homeless and is very depressed about this to the point that now she wants to kill herself. She has had some suicidal ideations with thoughts of potentially overdosing on medications. She states that she was living with her son for the last few days but she can longer live with him. She denies any current medical complaints. She denies any alcohol or drug abuse. No other complaints or modifying factors. - Related Data Home Medications Medication Instructions Recorded Confirmed ALPRAZolam [Xanax] 0.5 mg PO HS PRN 07/14/18 01/14/19 Dextroamphetamine/Amphetamine 20 mg PO BID 07/14/18 01/14/19 [Adderall] fluPHENAZine DECANOATE [Prolixin 25 mg IM [id number] 01/14/19 01/14/19 Decanoate] Allergies Allergy/AdvReac Type Severity Reaction Status Date / Time haloperidol [From Haldol] Allergy Unknown Verified 01/14/19 13:38 haloperidol lactate Allergy Unknown Verified 01/14/19 13:38 [From Haldol] paliperidone [From Invega] Allergy Unknown Verified 01/14/19 13:38 Penicillins Allergy Unknown Verified 01/14/19 13:38 quetiapine fumarate Allergy Unknown Verified 01/14/19 13:38 [From Seroquel] zolpidem tartrate Allergy Unknown Verified 01/14/19 13:38 [From Ambien] Review of Systems ROS Statement: Those systems with pertinent positive or pertinent negative responses have been documented in the HPI. ROS Other: All systems not noted in ROS Statement are negative. Past Medical History Past Medical History: No Reported History Additional Past Medical History / Comment(s): ADHD History of Any Multi-Drug Resistant Organisms: None Reported Past Surgical History: No Surgical Hx Reported Additional Past Surgical History / Comment(s): pt not answering questions well Past Anesthesia/Blood Transfusion Reactions: No Reported Reaction Past Psychological History: ADD/ADHD, Schizoaffective Disorder Smoking Status: Current every day smoker Past Alcohol Use History: Occasional Past Drug Use History: None Reported, Marijuana - Past Family History Father Additional Family Medical History / Comment(s): Patient refuses to give any information on her family including her mother and father. General Exam - General Exam Comments Initial Comments: GENERAL: The patient is well nourished and well hydrated. VITAL SIGNS: Heart rate, blood pressure, respiratory rate reviewed as recorded in nurse's notes. EYES: Pupils are round and reactive. Extraocular movements are intact. No conjunctival / lid redness or swelling. ENT: No external evidence of injury, swelling, or ecchymosis. Airway is patent. Throat is clear. NECK: Nontender. No swelling or evidence of injury. No subcutaneous emphysema. Trachea is midline. No thyroid mass. HEART: Regular rate and rhythm. Good peripheral pulses. LUNGS/CHEST: Breath sounds clear and equal bilaterally. No rales, rhonchi, or wheezes. No ecchymosis, subcutaneous emphysema, or tenderness. ABDOMEN: Abdomen soft without tenderness. No palpable masses or organomegaly. No peritoneal signs. No abdominal wall swelling or ecchymosis. EXTREMITIES: No extremity tenderness. Normal muscle tone and function. No thoracolumbar tenderness. NEUROLOGIC: Sensation is grossly intact. Cranial nerve exam reveals face is symmetrical, tongue is midline, speech is clear. SKIN: No abrasions or ecchymosis is noted. No induration or masses noted. PSYCHIATRIC: Alert and oriented. Appropriate behavior and judgment. Limitations: no limitations Course Vital Signs 01/14/19 13:13 Temperature 98 F Pulse Rate 96 Respiratory 18 Rate Blood Pressure 142/108 O2 Sat by Pulse 98 Oximetry Medical Decision Making - Medical Decision Making The patient is seen and examined. An alcohol breath test was done and is negative. The urine drug screen is negative. It is felt as though the patient can be medically cleared for further psychiatric evaluation. The case is discussed with the psychiatric nurse and they're very familiar with her. They do discussed in more detail and feel as though she is not suicidal. She essentially doesn't need a place to stay and they are going to call around for shelters for her. They feel as though she stable for discharge and I do agree. - Lab Data Lab Results 01/14/19 Range/Units 13:30 Urine Opiates Screen Not Detected (NotDetected) Ur Oxycodone Screen Not Detected (NotDetected) Urine Methadone Screen Not Detected (NotDetected) Ur Propoxyphene Screen Not Detected (NotDetected) Ur Barbiturates Screen Not Detected (NotDetected) U Tricyclic Antidepress Not Detected (NotDetected) Ur Phencyclidine Scrn Not Detected (NotDetected) Ur Amphetamines Screen Not Detected (NotDetected) U Methamphetamines Scrn Not Detected (NotDetected) U Benzodiazepines Scrn Not Detected (NotDetected) Urine Cocaine Screen Not Detected (NotDetected) U Marijuana (THC) Screen Not Detected (NotDetected) Disposition Clinical Impression: Depression, Homeless Disposition: HOME SELF-CARE Condition: Good Instructions (If sedation given, give patient instructions): Depression (ED) Is patient prescribed a controlled substance at d/c from ED?: No Referrals: Jacob William MD [Primary Care Provider] - 1-2 days Time of Disposition: 16:49
[2019-01-14 17:18] VITALS: BP 140/82; PULSE 78; TEMP 97.8
== END 2019-01-14 17:04 | disposition home or self-care (01) ==
LOC: EC 13:08
DX: F32.9 Major depressive disorder, single episode, unspecified (principal); F90.9 Attention-deficit hyperactivity disorder, unspecified type; F25.9 Schizoaffective disorder, unspecified; F17.200 Nicotine dependence, unspecified, uncomplicated; Z79.899 Other long term (current) drug therapy; Z59.0 Homelessness; Z88.0 Allergy status to penicillin; Z88.8 Allergy status to other drugs, medicaments and biological substances
CPT/HCPCS: 80306; 82075; 99285

== ENCOUNTER 2019-02-10 20:40 | Inpatient (IN) | payer MEDICARE, MEDICAID ==
--- NOTE | 2019-02-10 21:14 | ED ---
Psych HPI - General Chief Complaint: Psychiatric Symptoms Stated Complaint: Suicidal Time Seen by Provider: 02/10/19 21:03 Source: patient Mode of arrival: ambulatory - History of Present Illness Initial Comments: This patient is a 44-year-old woman who presents with complaint that she is feeling depressed and suicidal or guarding learning that she may need to have a CPAP machine for obstructive sleep apnea. The patient states that she had seen a physician today who felt that she needed the CPAP machine. Patient feels that her health is failing her so she feels like she wants to buy a gun and her life. MD Complaint: suicidal ideation, feels depressed Onset/Timin -: days(s) Associated Psychiatric Symptoms: depression, suicidal ideation History of same: No Improves With: none Worsens With: none Associated Symptoms: denies other symptoms - Related Data Home Medications Medication Instructions Recorded Confirmed ALPRAZolam [Xanax] 0.5 mg PO HS PRN 07/14/18 02/11/19 Dextroamphetamine/Amphetamine 20 mg PO BID 07/14/18 02/11/19 [Adderall] fluPHENAZine DECANOATE [Prolixin 25 mg IM [id number] 01/14/19 02/11/19 Decanoate] Allergies Allergy/AdvReac Type Severity Reaction Status Date / Time haloperidol [From Haldol] Allergy Unknown Verified 02/11/19 02:54 haloperidol lactate Allergy Unknown Verified 02/11/19 02:54 [From Haldol] paliperidone [From Invega] Allergy Unknown Verified 02/11/19 02:54 Penicillins Allergy Unknown Verified 02/11/19 02:54 quetiapine fumarate Allergy Unknown Verified 02/11/19 02:54 [From Seroquel] zolpidem tartrate Allergy Unknown Verified 02/11/19 02:54 [From Ambien] Review of Systems ROS Statement: Those systems with pertinent positive or pertinent negative responses have been documented in the HPI. ROS Other: All systems not noted in ROS Statement are negative. Constitutional: Denies: fever, chills Respiratory: Denies: cough, dyspnea, wheezes Cardiovascular: Denies: chest pain, palpitations, edema, syncope Gastrointestinal: Denies: abdominal pain, nausea, vomiting Genitourinary: Denies: dysuria, frequency Musculoskeletal: Denies: back pain Skin: Denies: rash Neurological: Denies: headache, weakness, numbness Past Medical History Past Medical History: No Reported History Additional Past Medical History / Comment(s): ADHD History of Any Multi-Drug Resistant Organisms: None Reported Past Surgical History: No Surgical Hx Reported Additional Past Surgical History / Comment(s): pt not answering questions well Past Anesthesia/Blood Transfusion Reactions: No Reported Reaction Past Psychological History: ADD/ADHD, Schizoaffective Disorder Smoking Status: Current every day smoker Past Alcohol Use History: Occasional Past Drug Use History: None Reported, Marijuana - Past Family History Father Additional Family Medical History / Comment(s): Patient refuses to give any information on her family including her mother and father. General Exam Limitations: no limitations General appearance: alert, in no apparent distress Head exam: Present: atraumatic, normocephalic Eye exam: Present: normal appearance. Absent: scleral icterus, conjunctival injection ENT exam: Present: normal oropharynx Neck exam: Present: normal inspection Respiratory exam: Present: normal lung sounds bilaterally. Absent: respiratory distress, wheezes, rales, rhonchi, stridor Cardiovascular Exam: Present: regular rate, normal rhythm, normal heart sounds. Absent: systolic murmur, diastolic murmur, rubs, gallop GI/Abdominal exam: Present: soft. Absent: distended, tenderness, guarding, rebound, rigid, mass Extremities exam: Present: normal inspection, normal capillary refill. Absent: pedal edema, calf tenderness Back exam: Present: normal inspection. Absent: CVA tenderness (R), CVA tenderness (L) Neurological exam: Present: alert Skin exam: Present: warm, dry, intact, normal color. Absent: rash Course Vital Signs 02/10/19 02/11/19 20:48 01:10 Temperature 98.7 F Pulse Rate 94 85 Respiratory 18 19 Rate Blood Pressure 121/87 117/71 O2 Sat by Pulse 94 L 98 Oximetry Medical Decision Making - Lab Data Lab Results 02/10/19 Range/Units 20:56 Urine Color Light Yellow Urine Appearance Clear (Clear) Urine pH 6.5 (5.0-8.0) Ur Specific [place] 1.007 (1.001-1.035) Urine Protein Negative (Negative) Urine Glucose (UA) Negative (Negative) Urine Ketones Negative (Negative) Urine Blood Negative (Negative) Urine Nitrite Negative (Negative) Urine Bilirubin Negative (Negative) Urine Urobilinogen <2.0 (<2.0) mg/dL Ur Leukocyte Esterase Moderate H (Negative) Urine RBC 1 (0-5) /hpf Urine WBC 14 H (0-5) /hpf Ur Squamous Epith Cells 4 (0-4) /hpf Amorphous Sediment Occasional H (None) /hpf Urine Opiates Screen Not Detected (NotDetected) Ur Oxycodone Screen Not Detected (NotDetected) Urine Methadone Screen Not Detected (NotDetected) Ur Propoxyphene Screen Not Detected (NotDetected) Ur Barbiturates Screen Not Detected (NotDetected) U Tricyclic Antidepress Not Detected (NotDetected) Ur Phencyclidine Scrn Not Detected (NotDetected) Ur Amphetamines Screen Not Detected (NotDetected) U Methamphetamines Scrn Not Detected (NotDetected) U Benzodiazepines Scrn Not Detected (NotDetected) Urine Cocaine Screen Not Detected (NotDetected) U Marijuana (THC) Screen Not Detected (NotDetected) Disposition Clinical Impression: Suicidal ideation, Mood disorder Disposition: TRANSFER TO PSYCH HOSP/UNIT Condition: Fair Is patient prescribed a controlled substance at d/c from ED?: No Referrals: Jacob William MD [Primary Care Provider] - 1-2 days
[2019-02-10 21:25] LABS: Amorphous Sediment,Urine Occasional /hpf; Appearance,Urine Clear (Clear); Bilirubin,Urine Negative (Negative); Blood,Urine Negative (Negative); Color,Urine Light Yellow; Glucose,Urine (UA) Negative (Negative); Ketones,Urine Negative (Negative); Leukocyte Esterase,Urine Moderate (Negative); Nitrite,Urine Negative (Negative); PH, Urine 6.5 (5.0-8.0); Protein,Urine Negative (Negative); RBC,Urine 1 /hpf (0-5); Specific Gravity,Urine 1.007 (1.001-1.035); Squamous Epithelial Cell,Urine 4 /hpf (0-4); Urobilinogen,Urine <2.0 mg/dL (<2.0); WBC,Urine 14 /hpf (0-5)
[2019-02-10 21:31] LABS: Amphetamine Screen,Urine Not Detected (NotDetected); Barbiturate Screen,Urine Not Detected (NotDetected); Benzodiazepines Screen,Urine Not Detected (NotDetected); Cocaine Screen,Urine Not Detected (NotDetected); Methadone Screen, Urine Not Detected (NotDetected); Opiate Screen,Urine Not Detected (NotDetected); Oxycodone Screen, Urine Not Detected (NotDetected); Phencyclidine Screen,Urine Not Detected (NotDetected); Tricyclic Antidepressant,Urine Not Detected (NotDetected); Urn Cannabinoid Scrn Not Detected (NotDetected)
[2019-02-11 03:34] VITALS: BMI 38.4
[2019-02-11] MEDS ORDERED: ACETAMINOPHEN TAB 325 MG TAB PO PRN (03:57)
[2019-02-11] MEDS ORDERED: ZIPRASIDONE 20 MG VIAL IM PRN (03:57)
[2019-02-11] MEDS ORDERED: MAGNESIUM HYDROXIDE 2,400 MG/10 ML CUP PO PRN (03:57)
[2019-02-11] MEDS ORDERED: MAG HYDROX/AL HYDROX/SIMETH 30 ML CUP PO PRN (03:57)
[2019-02-11] MEDS ORDERED: ALPRAZolam 0.5 MG TAB PO PRN (03:59)
[2019-02-11 08:28] LABS: Basophils # (A) 0.1 k/uL (0-0.2); Basophils % (A) 1 %; Eosinophils # (A) 0.6 k/uL (0-0.7); Eosinophils % (A) 7 %; HCT 47.3 % (34.0-46.0); HGB 16.1 gm/dL (11.4-16.0); Lymphocytes # (A) 1.9 k/uL (1.0-4.8); Lymphocytes % (A) 21 %; MCH 29.7 pg (25.0-35.0); MCV 87.4 fL (80.0-100.0); Mean Platelet Volume 6.1; Monocytes # (A) 0.5 k/uL (0-1.0); Monocytes % (A) 6 %; Neutrophils # (A) 5.8 k/uL (1.3-7.7); Neutrophils % (A) 63 %; Platelet Count 333 k/uL (150-450); RBC 5.41 m/uL (3.80-5.40); RDW 14.2 % (11.5-15.5); WBC 9.2 k/uL (3.8-10.6)
[2019-02-11 08:54] LABS: ALT 39 U/L (9-52); AST 24 U/L (14-36); African American GFR (CKD) >90 (>60 ml/min/1.73 sqM); Albumin 4.2 g/dL (3.5-5.0); Alkaline Phosphatase 71 U/L (38-126); Anion Gap 9 mmol/L; Bilirubin, Delta 0.1 mg/dL (0.0-0.2); Bilirubin,Unconjugated 0.3 mg/dL (0.0-1.1); Blood Urea Nitrogen 13 mg/dL (7-17); Calcium 9.5 mg/dL (8.4-10.2); Carbon Dioxide 24 mmol/L (22-30); Chloride 107 mmol/L (98-107); Cholesterol 205 mg/dL (<200); Glucose 101 mg/dL (74-99); HDL Cholesterol 32 mg/dL (40-60); LDL Cholesterol,Calculated 134 mg/dL (0-99); Potassium 4.6 mmol/L (3.5-5.1); Sodium 140 mmol/L (137-145); Total Bilirubin 0.4 mg/dL (0.2-1.3); Total Protein 7.8 g/dL (6.3-8.2); Triglycerides 197 mg/dL (<150)
[2019-02-11] MEDS: NICOTINE 14MG/24HR PATCH TRANSDERM SCH (09:14)
[2019-02-11] MEDS ORDERED: OLANZapine ODT 5 MG TAB PO PRN (13:14)
--- NOTE | 2019-02-11 13:39 | P.HP ---
Psychiatric H&P - . H&P Date: 02/11/19 History & Physical: IDENTIFYING Data: Noelle Wakefield is a 44-year-ol female who currently lives in a fpc, unemployed on SSD, has psychiatric history of schizoaffective disorder, and medical history of sleep apnea. The patient has been admitted to our inpatient psychiatric services after been transferred from [facility] ER. Patient was initially brought to ER by herself because of depression and suicidal ideation. The patient has been admitted on voluntarily basis to our service. CHIEF COMPLAINT: "Feeling depressed and having thoughts to kill myself." HISTORY OF PRESENT ILLNESS: As per ER note: " This patient is a 44-year-old woman who presents with complaint that she is feeling depressed and suicidal after she was told that she may need to have a CPAP machine for obstructive sleep apnea. The patient states that she had seen a physician today who felt that she needed the CPAP machine. Patient feels that her health is failing her so she feels like she wants to buy a gun and end her life." There is on psychiatric evaluation today, the patient reports feeling depressed and suicidal after she was kicked out from her friend's house 2 weeks ago and she has been homeless living in a fpc since then. She reports her friend has to get her out because there was an order of protection against her friend if the patient didn't leave the apartment. Patient was very fixated on getting help for housing and she reports feeling depressed, hopeless, helpless and suicidal because she has no stable place to live. She reports having suicidal thoughts and a plan to buy a gun and shot herself. The patient has established diagnosis of a schizoaffective disorder bipolar type, amphetamine use disorder and she has been followed by [facility] was a last time was seen there about 2 weeks ago. The patient is followed by the ACT team and she is currently on Prolixin 25 mg injection every 2 weeks was the last time he received 01/31/2019, and she is also on the role 20 mg twice daily, and Xanax 0.5 mg daily as needed. Patient denies any current manic symptoms, and he denies any current auditory or visual hallucinations. She denies feeling paranoid and no delusions could be elicited at this time. Patient denies any current nightmares or flashbacks and reports that she has to feel increasingly anxious but not currently. She denies any panic attacks. She denies any current self-injurious behavior. PAST PSYCHIATRIC HISTORY: Previous diagnoses: Schizoaffective disorder, amphetamine use disorder. Previous psychiatric hospitalizations: Multiple times "about 10 times". Patient claimed that she was admitted previously for no apparent reason. As per medical records the patient was last time hospitalized to this unit in 2017 and she received as a same diagnosis of schizoaffective disorder and was discharged at that time on oral Prolixin. Previous suicide attempts: Denies any previous suicidal attempts. Previous outpatient psychiatric treatment: Patient has been followed with [facility]. Current psychiatric medications: As per HPI. As per previous medical records the patient claimed director systems to [employer], Maury, Brandyn, and matt, and penicillin SUBSTANCE ABUSE HISTORY: Nicotine: Half-pack per day for more than 15 years. Alcohol: Denies alcohol drinking, Denies any use of street drugs including marijuana, opioid, cocaine, or methamphetamine. According to previous evaluation, the patient admitted for occasional alcohol use. She denies any previous substance use disorder treatment. Social History: The patient was born and raised in [place]. She graduated high school diploma from special education. Patient is and. She has 2 children one son and one daughter who are currently adults. She is currently unemployed and received Social Security disability. Patient has previous charges of domestic violence and assaultive battery. No report of current probation or pending charges. History of psychological trauma: She denies any history of psychological trauma FAMILY HISTORY: Reports her mother has schizophrenia and her sister suffered from mental illness. Medical History: Obstructive sleep apnea MENTAL STATUS EVALUATION: Appearance: Appears older than stated age, poorly groomed, above average body built, and no specific features. Gait/ posture: Steady gait, normal arm swinging, no abnormal movements, with relaxed posture. Attitude and Behavior: Superficially cooperative, intermittent eye contact during course of interview. Motor Activity: Increased psychomotor activity. Speech: spontaneous, normal rate, rhythm, and articulation. Normal volume. Not pressured. Language: Articulating, naming objects and repeat phrases. Mood: "Depressed" Affect: Constricted. Thought process: Linear, goal directed. Association: Not circumstantial, not tangential. Thought content: No delusions, reports suicidal thoughts, reports suicidal plan, denies homicidal thoughts, denies homicidal intentions, or plans. Perception: Denies any current auditory or visual hallucinations Alertness: No impairment. Concentration: Impaired Orientation: Oriented to time, place, person, and situation Insight regarding psychiatric condition: Limited Judgment regarding daily activities and social situation: Limited Strengths: Stable general medical condition. Stable income. Willing to get better. Challenges: Poor coping skills. Limited insight about her mental illness. Limited social support Allergies Allergy/AdvReac Type Severity Reaction Status Date / Time haloperidol [From Haldol] Allergy Unknown Verified 02/11/19 02:54 haloperidol lactate Allergy Unknown Verified 02/11/19 02:54 [From Haldol] paliperidone [From Invega] Allergy Unknown Verified 02/11/19 02:54 Penicillins Allergy Unknown Verified 02/11/19 02:54 quetiapine fumarate Allergy Unknown Verified 02/11/19 02:54 [From Seroquel] zolpidem tartrate Allergy Unknown Verified 02/11/19 02:54 [From Ambien] Vital Signs Temp 97.7 F 02/11/19 03:27 Pulse 85 02/11/19 03:27 Resp 16 02/11/19 03:27 BP 141/85 02/11/19 03:27 Pulse Ox 98 02/11/19 03:27 Intake & Output 02/10/19 02/11/19 02/11/19 18:59 06:59 18:59 Weight 96.252 kg Review of Lab results: Laboratory Last Values WBC 9.2 k/uL (3.8-10.6) 02/11/19 08:00 RBC 5.41 m/uL (3.80-5.40) H 02/11/19 08:00 Hgb 16.1 gm/dL (11.4-16.0) H 02/11/19 08:00 Hct 47.3 % (34.0-46.0) H 02/11/19 08:00 MCV 87.4 fL (80.0-100.0) 02/11/19 08:00 MCH 29.7 pg (25.0-35.0) 02/11/19 08:00 MCHC 34.0 g/dL (31.0-37.0) 02/11/19 08:00 RDW 14.2 % (11.5-15.5) 02/11/19 08:00 Plt Count 333 k/uL (150-450) 02/11/19 08:00 Neutrophils % 63 % 02/11/19 08:00 Lymphocytes % 21 % 02/11/19 08:00 Monocytes % 6 % 02/11/19 08:00 Eosinophils % 7 % 02/11/19 08:00 Basophils % 1 % 02/11/19 08:00 Neutrophils # 5.8 k/uL (1.3-7.7) 02/11/19 08:00 Lymphocytes # 1.9 k/uL (1.0-4.8) 02/11/19 08:00 Monocytes # 0.5 k/uL (0-1.0) 02/11/19 08:00 Eosinophils # 0.6 k/uL (0-0.7) 02/11/19 08:00 Basophils # 0.1 k/uL (0-0.2) 02/11/19 08:00 Sodium 140 mmol/L (137-145) 02/11/19 08:00 Potassium 4.6 mmol/L (3.5-5.1) 02/11/19 08:00 Chloride 107 mmol/L (98-107) 02/11/19 08:00 Carbon Dioxide 24 mmol/L (22-30) 02/11/19 08:00 Anion Gap 9 mmol/L 02/11/19 08:00 BUN 13 mg/dL (7-17) 02/11/19 08:00 Creatinine 0.73 mg/dL (0.52-1.04) 02/11/19 08:00 Est GFR (CKD-EPI)AfAm >90 (>60 ml/min/1.73 sqM) 02/11/19 08:00 Est GFR (CKD-EPI)NonAf >90 (>60 ml/min/1.73 sqM) 02/11/19 08:00 Glucose 101 mg/dL (74-99) H 02/11/19 08:00 Calcium 9.5 mg/dL (8.4-10.2) 02/11/19 08:00 Total Bilirubin 0.4 mg/dL (0.2-1.3) 02/11/19 08:00 Conjugated Bilirubin 0.0 mg/dL (0.0-0.3) 02/11/19 08:00 Unconjugated Bilirubin 0.3 mg/dL (0.0-1.1) 02/11/19 08:00 Delta Bilirubin 0.1 mg/dL (0.0-0.2) 02/11/19 08:00 AST 24 U/L (14-36) 02/11/19 08:00 ALT 39 U/L (9-52) 02/11/19 08:00 Alkaline Phosphatase 71 U/L (38-126) 02/11/19 08:00 Total Protein 7.8 g/dL (6.3-8.2) 02/11/19 08:00 Albumin 4.2 g/dL (3.5-5.0) 02/11/19 08:00 Triglycerides 197 mg/dL (<150) H 02/11/19 08:00 Cholesterol 205 mg/dL (<200) H 02/11/19 08:00 LDL Cholesterol, Calc 134 mg/dL (0-99) H 02/11/19 08:00 HDL Cholesterol 32 mg/dL (40-60) L 02/11/19 08:00 TSH 1.700 mIU/L (0.465-4.680) 02/11/19 08:00 Urine Color Light Yellow 02/10/19 20:56 Urine Appearance Clear (Clear) 02/10/19 20:56 Urine pH 6.5 (5.0-8.0) 02/10/19 20:56 Ur Specific [place] 1.007 (1.001-1.035) 02/10/19 20:56 Urine Protein Negative (Negative) 02/10/19 20:56 Urine Glucose (UA) Negative (Negative) 02/10/19 20:56 Urine Ketones Negative (Negative) 02/10/19 20:56 Urine Blood Negative (Negative) 02/10/19 20:56 Urine Nitrite Negative (Negative) 02/10/19 20:56 Urine Bilirubin Negative (Negative) 02/10/19 20:56 Urine Urobilinogen <2.0 mg/dL (<2.0) 02/10/19 20:56 Ur Leukocyte Esterase Moderate (Negative) H 02/10/19 20:56 Urine RBC 1 /hpf (0-5) 02/10/19 20:56 Urine WBC 14 /hpf (0-5) H 02/10/19 20:56 Ur Squamous Epith Cells 4 /hpf (0-4) 02/10/19 20:56 Amorphous Sediment Occasional /hpf (None) H 02/10/19 20:56 Urine Opiates Screen Not Detected (NotDetected) 02/10/19 20:56 Ur Oxycodone Screen Not Detected (NotDetected) 02/10/19 20:56 Urine Methadone Screen Not Detected (NotDetected) 02/10/19 20:56 Ur Propoxyphene Screen Not Detected (NotDetected) 02/10/19 20:56 Ur Barbiturates Screen Not Detected (NotDetected) 02/10/19 20:56 U Tricyclic Antidepress Not Detected (NotDetected) 02/10/19 20:56 Ur Phencyclidine Scrn Not Detected (NotDetected) 02/10/19 20:56 Ur Amphetamines Screen Not Detected (NotDetected) 02/10/19 20:56 U Methamphetamines Scrn Not Detected (NotDetected) 02/10/19 20:56 U Benzodiazepines Scrn Not Detected (NotDetected) 02/10/19 20:56 Urine Cocaine Screen Not Detected (NotDetected) 02/10/19 20:56 U Marijuana (THC) Screen Not Detected (NotDetected) 02/10/19 20:56 Assessment: Schizo-affective disorder, bipolar type. Methamphetamine use disorder by history. TREATMENT PLAN/RECOMMENDATIONS: Medical Decision making: The patient presented with depression and suicidal ideation with a plan to buy a gun and shoot herself. The patient at high risk to hurt herself if she is not in the inpatient setting. The patients psychiatric symptoms are not stable and she needs further management of psychiatric medications and further planning for discharge. Therefore, inpatient level of care is needed. Continue the patient inpatient for safety. Continue the patient under 15 minutes safe check for safety. Continue treatment of Schizo-affective disorder. Psych education regarding her diagnosis, and treatment option. The patient will also be provided with individual therapy, group therapy, substance abuse counseling, gain insight, and coping skills. Consider medical consultation if any acute medical issue arise. Medications: Prolixin 25 mg IM / 2weeks for mood stabilization and psychotic symptoms. Next injection on 02/16/19. Discontinue Xanax and replace it with Klonopin 0.5 mg HS PRN for severe anxiety. Patient has no active symptoms of ADD or ADHD and no need to restart Adderall at this time. Prognosis is Fair , contingent on patient has been compliant with his m edications and has been followed up closely with outpatient mental health provider after discharge. The patient will be assessed on daily basis for his depression, suicidal ideation, and will be discharged back to his outpatient mental health provider upon stabilization. EXPECTED LENGTH OF STAY: 5-7 days.
--- NOTE | 2019-02-11 15:25 | CONS ---
CONSULTATION CHIEF COMPLAINT: Schizophrenia, depression and suicidal ideation. HISTORY OF PRESENT ILLNESS: The details of this lady's history can be found in her admitting summary. She has a long-standing history of schizoaffective disorder. She also has major depression, anxiety neurosis, and ADHD. She apparently was considering suicide and was brought to the emergency room. REVIEW OF SYSTEMS: Otherwise unremarkable. She denies any headaches, visual changes, chest pain, shortness of breath, abdominal pain, nausea, vomiting, urinary complaints, incontinence, dysuria, arthralgias, diabetes, etc. Past medical history, family history, personal and social histories reveal that she is allergic to PENICILLIN. She is on Adderall 20 mg t.i.d., fluphenazine 2.5 once a day, vitamin D 50,000 units a month, Xanax 0.5 at bedtime. The remainder of her history is unremarkable. She does smoke. She drinks alcohol occasionally. PHYSICAL EXAMINATION: Blood pressure 112/70, pulse 68, respirations of 16 and she is afebrile. In general, she appeared to be slightly overweight and quite anxious. Skin color is normal, skin is warm, dry. Lymph nodes are not enlarged. Head, ears, eyes, nose, mouth, and throat were normal. Neck veins were not distended and thyroid was not enlarged. Chest is clear. Cardiac exam demonstrated normal sinus rhythm and no murmurs or extra sounds. Abdomen is slightly protuberant. Abdomen is soft, nontender without any masses. Extremities normal. Neurologically, she is intact except she seemed very anxious and somewhat frightened. IMPRESSION: 1. Major depression. 2. Schizoaffective disorder. 3. Suicidal personality. RECOMMENDATION: None at this time except to follow up on her urinalysis. MMODL / IJN: [id number] /
[2019-02-11] MEDS: clonazePAM 0.5 MG TAB PO PRN (20:40)
[2019-02-12] MEDS: NICOTINE 14MG/24HR PATCH TRANSDERM SCH ×2 (10:06→12:34)
--- NOTE | 2019-02-12 12:07 | P.PN ---
Progress Note - Text Progress Note Date: 02/12/19 Interval history: Patient is seen in cross coverage today. She says she slept well last night. Her appetite seems to be fine. She describes that she was admitted to the hospital where she came [facility] the [place] [facility], relays she was being bullied at the [facility]. She does state that she is feeling better today. She describes that she is being compliant with taking her medications. Mental status exam: She is alert and cooperative with the interview. Her speech is fluent, not rapid or pressured. Her thought processes are organized. Her mood she describes is doing better today. She denies any thoughts of harm to herself. She does not verbalize any thoughts of harm to others. She does not verbalize any hallucinations. She does not show any current agitation. Plan: Patient be maintained on current psychotropic medication regimen. We'll continue to monitor for any medication side effects and monitor her response to ongoing treatment.
[2019-02-12] MEDS: clonazePAM 0.5 MG TAB PO PRN (21:28)
[2019-02-13] MEDS: NICOTINE 14MG/24HR PATCH TRANSDERM SCH ×2 (09:05→11:01)
--- NOTE | 2019-02-13 12:08 | P.PN ---
Progress Note - Text Progress Note Date: 02/13/19 Interval history: Patient seen in [facility] again today. She reports that she slept well last night and she seems to be eating well. She does not voice any adverse psychotropic medication side effects. She says that she's been at [facility] for a few weeks and needs to figure out where she'll be going afterwards. She says she is able to return there after the hospitalization. Mental status exam: She is alert and cooperative with the interview. Her speech is fluent, not rapid or pressured. Thought processes are organized. Her mood she describes as "good." She denies any thoughts of harm to self or others. She does not verbalize any hallucinations. She does not show any agitation. Plan: Patient will be maintained on current psychotropic medication regimen. Continue to monitor for any medication side effects monitor her ongoing response to treatment.
[2019-02-13] MEDS: clonazePAM 0.5 MG TAB PO PRN (21:35)
[2019-02-14] MEDS: NICOTINE 14MG/24HR PATCH TRANSDERM SCH ×2 (09:08→13:23)
--- NOTE | 2019-02-14 14:56 | P.PN ---
Progress Note - Text Progress Note Date: 02/14/19 Clinical Problems: Schizoaffective disorder bipolar type, methamphetamine use disorder by history Interim history: I reviewed the medical record, interviewed the patient and discuss her treatment and treatment plan during team meeting. She is a 44-year-old female who has a chronic and persistent mental illness diagnosed as schizoaffective disorder. She presented to unit voluntarily with complaints of increased depression and suicidal ideation. The proximal cause of the depression and suicidal ideations appeared to attend to the loss of stable housing and having to live in a [facility]. She complained about the condition of a m[facility]. She felt frightened by the other residents in the mcf[facility]. She alleged that she has identified "friend" with whom she may live. However, the administrator social welfare has spoken with her ACT hypo dipper and guardian. The plan is to identify an alternative to the mcfp where her medical and psychiatric treatment needs can be monitored. Mental status exam: She presented as an obese 44-year-old female who was pleasant on approach. She appeared disheveled. She had no distinguishing features or prominent physical abnormalities. She had a blunted facial expression. She showed slight psychomotor retardation but no abnormal involuntary movements. Her affect was flat but appropriate. She denied suicidal ideation or wishes. She denied homicidal ideation. She denied experiencing such depressive cognitions as hopelessness, helplessness or worthlessness. She ruminated about her living situation and the plan to be discharged to live with "a friend". She did not express ideas reference, paranoid ideation, magical ideation or delusional thoughts. Her thinking was very concrete but her associations were coherent, logical and goal directed. She denied hallucinations and did not appear to be responding to internal stimul i. Assessment: Her depression and suicidal ideation have resolved since admission to the unit. She's been compliant with medications and does not have overt psychotic symptoms. She has limited understanding of her treatment needs and will continue to need assertive outpatient mental health services. Plan: Continue with multimodal therapy, continue safety precautions, continue Klonopin 0.5 mg at bedtime when necessary for sleep, Prolixin Decanoate 25 mg IM every 2 weeks and olanzapine 5 mg by mouth every 6 hours when necessary for agitation. farmworker general to coordinate discharge and aftercare with her ACT team. Evaluate clinical status response to treatment daily basis.
[2019-02-14] MEDS: clonazePAM 0.5 MG TAB PO PRN (21:31)
[2019-02-15 07:07] VITALS: BP 116/63; PULSE 82; RESP 16; TEMP 98
[2019-02-15] MEDS: NICOTINE 14MG/24HR PATCH TRANSDERM SCH (09:48)
--- NOTE | 2019-02-15 13:18 | P.DS ---
Providers Date of admission: 02/11/19 03:06 Attending physician: Mohit Balderas MD Consults: 02/11/19 03:57 Consult Physician Routine Consulting Provider: Jacob William Consult Reason/Comments: For H & P for medical follow up Do you want consulting provider notified?: Yes, Notify in am Primary care physician: Jacob William - Discharge Diagnosis(es) (1) Lack of housing Current Visit: Yes Status: Resolved Priority: High (2) Suicidal ideation Current Visit: Yes Status: Resolved (3) Schizoaffective disorder Current Visit: No Status: Chronic Priority: High Hospital Course: The patient is a 44-year-old female who presented to the emergency room with complaints of depression and suicidal ideation. She was living in a assisted prior to admission after having been evicted from a friend's home 2 weeks prior to admission. She told the admitting physician that she was having suicidal thoughts and had a plan to buy a gun and "shoot herself." She has chronic and persistent mental illness that is most likely a schizoaffective disorder or schizophrenia. She has had multiple psychiatric hospitalizations. She is active with community mental health and currently enrolled in their assertive community treatment team due to the chronicity, persistence and severity of her mental illness. In addition to the chronic mental illness she has history of chronic use of Xanax and Adderall that is prescribed by her primary care provider (against the wishes of [facility]). We admitted her voluntarily to the psychiatric unit and provided a comprehensive biopsychosocial assessment. We placed her on safety precautions due to her complaints of suicidal ideation. We continued her outpatient dose of fluphenazine decanoate 25 mg every 14 days (last injection was on 02/02/2019 and the next injection is due until 02/16/2019). We declined to continue her outpatient prescription of Adderall (20 mg twice a day) and substituted clonazepam 0.5 mg at bedtime when necessary for outpatient prescription of Xanax. A review of her MAPS showed that her primary care provider has been Adderall and Xanax since at least February 2017. She posed no management problem and had no episodes of behavioral dyscontrol. She participated in therapeutic groups and activities. She perseverated on her housing situation and repeatedly stated that she will not go back to a assisted. We were in the process of arranging a prison placement with [facility] when she reported that she had identified a friend who has an apartment nearby. tangled yarn worker spoke with a friend and confirmed the housing arrangement. [facility] posed no objection to this discharge plan. At the time of discharge she presented as a casually groomed obese middle-aged female. She had no prominent physical abnormalities. She had a blunted but bright facial expression. She showed no abnormality of psychomotor activity. She had no abnormal movements. Her speech was blunted but normal rate and volume. Her affect was blunted but stable and appropriate. She denies suicidal ideation or wishes. She denied experiencing such depressive cognitions as hopelessness, helplessness or worthlessness. She denied ideas of reference, paranoid ideation or delusional thoughts. Her thinking was concrete but her associations were coherent and logical. She denied experiencing hallucinations and did not appear to be responding to internal stimuli. Patient Condition at Discharge: Fair Plan - Discharge Summary New Discharge Prescriptions: New Nicotine 14Mg/24Hr Patch [Habitrol] 1 patch TRANSDERM DAILY 14 Days #14 patch clonazePAM [KlonoPIN] 0.5 mg PO HS PRN 30 Days #30 tab PRN Reason: Anxiety Continue fluPHENAZine DECANOATE [Prolixin Decanoate] 25 mg IM Q14D 14 Days #1 ml Discontinued Dextroamphetamine/Amphetamine [Adderall] 20 mg PO BID ALPRAZolam [Xanax] 0.5 mg PO HS PRN PRN Reason: Anxiety Discharge Medication List Nicotine 14Mg/24Hr Patch [Habitrol] 1 patch TRANSDERM DAILY 14 Days #14 patch 02/15/19 [Rx] clonazePAM [KlonoPIN] 0.5 mg PO HS PRN 30 Days #30 tab 02/15/19 [Rx] fluPHENAZine DECANOATE [Prolixin Decanoate] 25 mg IM Q14D 14 Days #1 ml 02/15/19 [Rx] Follow up Appointment(s)/Referral(s): [facility] [Outside] - 02/23/19 1:30 pm (02-23-19 @ 1:30 with Marquita Siomara in [place]. ACT team to transport her to [place]. ) Jacob William MD [Primary Care Provider] - 1-2 days Patient Instructions/Handouts: How to Stop Smoking (DC), Bipolar Disorder (DC), Depression (DC), Schizoaffective Disorder (DC), Anxiety (ED) Activity/Diet/Wound Care/Special Instructions: Activity and diet as tolerated. No guns or weapons in the home. Refrain from Alcohol and street drugs not prescribed by your physician/s. Take all medications as prescribed, and attend your scheduled follow up appointments for psychiatric after care. If in need of medication refills, please to your primary care physician, or your out patient psychiatric provider. If in crisis please call , or go the nearest ER for an evaluation. Discharge Disposition: HOME SELF-CARE
[2019-02-16] MEDS ORDERED: fluPHENAZine DECANOATE 25 MG/ML 5ML MDV IM SCH (09:00)
== END 2019-02-15 12:43 | disposition home or self-care (01) | DRG 885 ==
LOC: EC 20:40 → 3MHU 02-11 03:06
PROVIDERS: ADMIT Psychiatry & Neurology Psychiatry; ATTEND Psychiatry & Neurology Psychiatry
DX: F25.0 Schizoaffective disorder, bipolar type (principal); R45.851 Suicidal ideations; E66.9 Obesity, unspecified; F17.200 Nicotine dependence, unspecified, uncomplicated; F41.1 Generalized anxiety disorder; F90.9 Attention-deficit hyperactivity disorder, unspecified type; G47.33 Obstructive sleep apnea (adult) (pediatric); F15.90 Other stimulant use, unspecified, uncomplicated; Z68.38 Body mass index [BMI] 38.0-38.9, adult; Z59.0 Homelessness; Z79.899 Other long term (current) drug therapy; Z88.0 Allergy status to penicillin; Z88.8 Allergy status to other drugs, medicaments and biological substances; Z81.8 Family history of other mental and behavioral disorders
CPT/HCPCS: 80053; 80061; 80306; 81001; 81025; 82248; 83036; 84443; 85025; 99285

== ENCOUNTER → 2019-02-10 | Outpatient (CLI) | payer MEDICARE, OTHER ==
--- NOTE | 2019-02-10 13:20 | CONS ---
CONSULTATION DATE OF SERVICE: 02/10/2019 This 44-year-old lady has been evaluated in the sleep center for possible obstructive sleep apnea-hypopnea syndrome and extremely significant excessive daytime sleepiness. HISTORY OF PRESENT ILLNESS/SLEEP-WAKE EVALUATION: Patient's usual sleep schedule from 10 p.m. 6 a.m. and then she may stay in bed until 10 a.m. Sometimes patient has problems with falling asleep and may take Xanax to help her to fall asleep. No TV in bedroom. During the sleep, she has loud snoring and witnessed episodes of stopped breathing during the sleep. She also has symptoms of restless legs while falling asleep. She wakes up from sleep, usually once with nocturia. During the day, she feels extremely sleepy. [place] Sleepiness Scale is 24. She has taken naps all the time. Does not feel refreshed after naps. No seeing vivid dreams during naps or basically no dreaming during the sleep at night. No history of sleep paralysis or cataplexy. During the day, patient has difficulties to pay attention, has problems with memory, concentration. PAST MEDICAL HISTORY: Positive for epilepsy as a child, episodes of psychosis which was 7 years ago. ADHD, irregular menstrual periods for many years. MEDICATIONS: Prolixin, Adderall 20 mg 3 times a day and Xanax on p.r.n. basis. SOCIAL HISTORY: Smoker for about 30 years, 1 pack a day. Continued to smoke. Alcohol consumption occasional. FAMILY HISTORY: Hyperlipidemia, emphysema, diabetes, thyroid problems, mental illness. REVIEW OF SYSTEMS: Snoring, significant excessive daytime sleepiness, irregular menstrual periods. PHYSICAL EXAMINATION: During physical exam, lady without distress. VITAL SIGNS: BP 123/83, HR 86, RR 16, height 5 feet 2-1/3 inches, weight 210.6 pounds, body mass index 38.0, temperature 98.4, oxygen saturation at room air 95%. HEENT: PERRLA, EOMI. Oropharynx extremely low position of soft palate, Mallampati 4. NECK: Wide neck 17 inches in circumference. LUNGS: Clear to percussion and to auscultation. Good air exchange. No wheezing or rhonchi. HEART: S1, S2 regular. No murmurs, gallops, or rubs. ABDOMEN: Obese. EXTREMITIES: No clubbing or cyanosis. JUDICIAL REPORTER: Awake, alert, and oriented X3. Cranial nerves 2 to 7 intact. There is no fasciculation or atrophy. noted. No focal deficits observed. IMPRESSION: 1. Loud snoring, witnessed episodes of stopped breathing during the sleep, extremely low position of soft palate, Mallampati 4, wide neck 17 inches in circumference, sleepiness, obstructive sleep apnea-hypopnea syndrome. 2. Extreme sleepiness with [place] Sleepiness Scale of 24 on treatment with Adderall 60 mg a day. to include hypersomnia including narcolepsy in differential diagnosis. 3. Obesity, body mass index 38.4. 4. History of attention deficit hyperactivity disorder. 5. History of epilepsy in childhood. 6. History of episodes of psychosis about 7 years ago at the time of divorce. 7. Restless leg symptoms. 8. Irregular menstrual periods for many years. PLAN: 1. Polysomnography for evaluation of patient's breathing during sleep. 2. CPAP/BiPAP titration if sleep study confirms obstructive sleep apnea-hypopnea syndrome. 3. Preferable position during sleep on the side. 4. No driving if patient feels any sleepiness. 5. I will see patient for follow up visit to explain results of testing and following plan. Thank you very much for referring this patient for consultation. Sincerely, Britton Tran MD, PhD, FAASM Diplomat of [employer] 2[employer] Shift of [facility] [place] MMODL / MELLN: [id number] /
== END | disposition home or self-care (01) ==
LOC: SLEEP 11:32
PROVIDERS: ATTEND Internal Medicine
DX: R06.83 Snoring (principal); E66.9 Obesity, unspecified; Z68.38 Body mass index [BMI] 38.0-38.9, adult; N92.6 Irregular menstruation, unspecified; R41.840 Attention and concentration deficit; G25.81 Restless legs syndrome; Z86.59 Personal history of other mental and behavioral disorders; Z82.0 Family history of epilepsy and other diseases of the nervous system; Z87.39 Personal history of other diseases of the musculoskeletal system and connective tissue; Z87.891 Personal history of nicotine dependence; Z79.899 Other long term (current) drug therapy
CPT/HCPCS: 99211

== ENCOUNTER 2020-07-19 20:10 | Inpatient (IN) | payer MEDICARE, MEDICAID ==
--- NOTE | 2020-07-20 00:19 | ED ---
Psych HPI - General Chief Complaint: Psychiatric Symptoms Stated Complaint: Pickup order Source: patient Mode of arrival: ambulatory - History of Present Illness Initial Comments: 45-year-old female with past medical history of schizoaffective disorder presents emergency department on a pickup order. Patient reports that the police showed up at her house today on a pickup order. Patient does not know why they came to get her. Patient states that she has not been following with [facility] for approximately one month as she feels she is doing well without their help. She denies suicidal or homicidal ideations. Denies drug use. No other alleviating, precipitating or modifying factors - Related Data Home Medications Medication Instructions Recorded Confirmed ALPRAZolam [Xanax] 1 mg PO BID PRN 07/19/20 07/19/20 buPROPion HCL [buPROPion HCL Xl] 150 mg PO DAILY 07/19/20 07/19/20 buPROPion XL [Wellbutrin Xl] 300 mg PO DAILY 07/19/20 07/19/20 fluPHENAZine decanoate [Prolixin 50 mg IM Q14D 07/19/20 07/19/20 Decanoate] Allergies Allergy/AdvReac Type Severity Reaction Status Date / Time haloperidol [From Haldol] Allergy Unknown Verified 07/19/20 21:08 haloperidol lactate Allergy Unknown Verified 07/19/20 21:08 [From Haldol] paliperidone [From Invega] Allergy Unknown Verified 07/19/20 21:08 Penicillins Allergy Unknown Verified 07/19/20 21:08 quetiapine fumarate Allergy Unknown Verified 07/19/20 21:08 [From Seroquel] zolpidem tartrate Allergy Unknown Verified 07/19/20 21:08 [From Ambien] Review of Systems ROS Statement: Those systems with pertinent positive or pertinent negative responses have been documented in the HPI. ROS Other: All systems not noted in ROS Statement are negative. Past Medical History Past Medical History: No Reported History Additional Past Medical History / Comment(s): ADHD History of Any Multi-Drug Resistant Organisms: None Reported Past Surgical History: No Surgical Hx Reported Additional Past Surgical History / Comment(s): pt not answering questions well Past Anesthesia/Blood Transfusion Reactions: No Reported Reaction Past Psychological History: ADD/ADHD, Schizoaffective Disorder Smoking Status: Never smoker Past Alcohol Use History: Occasional Past Drug Use History: Marijuana - Past Family History Father Additional Family Medical History / Comment(s): Patient refuses to give any information on her family including her mother and father. General Exam Limitations: no limitations Course Vital Signs 07/19/20 21:05 Temperature 98.1 F Pulse Rate 97 Respiratory 18 Rate Blood Pressure 120/77 O2 Sat by Pulse 98 Oximetry Medical Decision Making - Medical Decision Making Arrival patient is placed in room 23. EPS is consulted. We are currently awaiting a decision Disposition Referrals: Jacob William MD [Primary Care Provider] - 1-2 days
[2020-07-20] MEDS ORDERED: ACETAMINOPHEN TAB 325 MG TAB PO PRN (04:00)
[2020-07-20 04:01] LABS: Appearance,Urine Cloudy (Clear); Bacteria,Urine Rare /hpf; Bilirubin,Urine Negative (Negative); Blood,Urine Negative (Negative); Color,Urine Yellow; Glucose,Urine (UA) Negative (Negative); Ketones,Urine Negative (Negative); Leukocyte Esterase,Urine Small (Negative); Mucus,Urine Rare /hpf; Nitrite,Urine Negative (Negative); Protein,Urine Negative (Negative); Specific Gravity,Urine 1.019 (1.001-1.035); Squamous Epithelial Cell,Urine 6 /hpf (0-4); Urobilinogen,Urine <2.0 mg/dL (<2.0); WBC,Urine 6 /hpf (0-5)
[2020-07-20 04:13] LABS: Amphetamine Screen,Urine Detected (NotDetected); Barbiturate Screen,Urine Not Detected (NotDetected); Benzodiazepines Screen,Urine Not Detected (NotDetected); Cocaine Screen,Urine Not Detected (NotDetected); Methadone Screen, Urine Not Detected (NotDetected); Opiate Screen,Urine Not Detected (NotDetected); Oxycodone Screen, Urine Not Detected (NotDetected); Phencyclidine Screen,Urine Not Detected (NotDetected); Tricyclic Antidepressant,Urine Not Detected (NotDetected); Urn Cannabinoid Scrn Not Detected (NotDetected)
[2020-07-20] MEDS ORDERED: LORazepam 1 MG TAB PO PRN (05:00)
[2020-07-20] MEDS ORDERED: ALPRAZolam 1 MG TAB PO PRN (05:00)
[2020-07-20] MEDS ORDERED: HALOPERIDOL LACTATE 5 MG/ML 1 ML VIAL IM PRN (06:00)
[2020-07-20] MEDS ORDERED: haloperidoL 5 MG TAB PO PRN (06:00)
[2020-07-20] MEDS ORDERED: MAG HYDROX/AL HYDROX/SIMETH 30 ML CUP PO PRN (08:00)
[2020-07-20] MEDS: NICOTINE 14MG/24HR PATCH TRANSDERM SCH (08:09)
[2020-07-20] MEDS: buPROPion XL 300 MG TAB.ER.24H PO SCH (08:09)
[2020-07-20] MEDS ORDERED: MAGNESIUM HYDROXIDE 2,400 MG/10 ML CUP PO PRN (09:00)
[2020-07-20] MEDS ORDERED: ZIPRASIDONE 20 MG CAP PO PRN (11:52)
[2020-07-20] MEDS ORDERED: ZIPRASIDONE 20 MG VIAL IM PRN ×2 (11:52)
--- NOTE | 2020-07-20 11:54 | P.HP ---
Psychiatric H&P - . H&P Date: 07/20/20 History & Physical: Allergies Allergy/AdvReac Type Severity Reaction Status Date / Time haloperidol From Haldol Allergy Unknown Verified 07/19/20 21:08 haloperidol lactate Allergy Unknown Verified 07/19/20 21:08 From Haldol paliperidone From Invega Allergy Unknown Verified 07/19/20 21:08 Penicillins Allergy Unknown Verified 07/19/20 21:08 quetiapine fumarate Allergy Unknown Verified 07/19/20 21:08 From Seroquel zolpidem tartrate Allergy Unknown Verified 07/19/20 21:08 From Ambien Vital Signs Temp 97.2 F L 07/20/20 03:44 Pulse 80 07/20/20 03:44 Resp 18 07/20/20 03:44 BP 116/71 07/20/20 03:44 Pulse Ox 98 07/20/20 03:44 Intake & Output 07/19/20 07/20/20 07/20/20 18:59 06:59 18:59 Weight 90.718 kg Laboratory Last Values Urine Color Yellow 07/20/20 02:29 Urine Appearance Cloudy (Clear) H 07/20/20 02:29 Urine pH 6.0 (5.0-8.0) 07/20/20 02:29 Ur Specific [place] 1.019 (1.001-1.035) 07/20/20 02:29 Urine Protein Negative (Negative) 07/20/20 02:29 Urine Glucose (UA) Negative (Negative) 07/20/20 02:29 Urine Ketones Negative (Negative) 07/20/20 02:29 Urine Blood Negative (Negative) 07/20/20 02:29 Urine Nitrite Negative (Negative) 07/20/20 02:29 Urine Bilirubin Negative (Negative) 07/20/20 02:29 Urine Urobilinogen <2.0 mg/dL (<2.0) 07/20/20 02:29 Ur Leukocyte Esterase Small (Negative) H 07/20/20 02:29 Urine WBC 6 /hpf (0-5) H 07/20/20 02:29 Ur Squamous Epith Cells 6 /hpf (0-4) H 07/20/20 02:29 Urine Bacteria Rare /hpf (None) H 07/20/20 02:29 Urine Mucus Rare /hpf (None) H 07/20/20 02:29 Urine HCG, Qual Not Detected (Not Detectd) 07/20/20 02:34 Urine Opiates Screen Not Detected (NotDetected) 07/20/20 02:29 Ur Oxycodone Screen Not Detected (NotDetected) 07/20/20 02:29 Urine Methadone Screen Not Detected (NotDetected) 07/20/20 02:29 Ur Propoxyphene Screen Not Detected (NotDetected) 07/20/20 02:29 Ur Barbiturates Screen Not Detected (NotDetected) 07/20/20 02:29 U Tricyclic Antidepress Not Detected (NotDetected) 07/20/20 02:29 Ur Phencyclidine Scrn Not Detected (NotDetected) 07/20/20 02:29 Ur Amphetamines Screen Detected (NotDetected) H 07/20/20 02:29 U Methamphetamines Scrn Detected (NotDetected) H 07/20/20 02:29 U Benzodiazepines Scrn Not Detected (NotDetected) 07/20/20 02:29 Urine Cocaine Screen Not Detected (NotDetected) 07/20/20 02:29 U Marijuana (THC) Screen Not Detected (NotDetected) 07/20/20 02:29 Coronavirus (PCR) Not Detected (Not Detectd) 07/20/20 02:40 07/20/20 11:38 IDENTIFYING DATA: Patient is a , unemployed, 45-year-old female who is currently under court order for treatment for schizoaffective disorder HPI: Patient presented to the hospital on 07/20/2020 per minute into the emergency department on a pickup order by police. The patient maintains that she should not have been picked up and that there is no reason for her to be admitted. She is currently not reporting any suicidal or homicidal ideation, intention, and/or plan. She is denying any auditory or visualizations. She denied any paranoia or other delusions. In regards to depressive symptoms, the patient is not reporting any significant issues aside from difficulty with sleep and low energy. She is not reporting any significant manic symptoms at this time. She denies any increased goal-directed behavior, mood swings, impulsivity, or grandiosity. As per review of Dr Bates's medication review note from 07/04/2020, the patient's ACT team felt like the patient was under playing her symptoms to the physician. The patient has also been noted to be upset and labile toward [facility]. She has been noted to be loud, vulgar, and profane, verbalizing personal insults against the physician. This was after she was confronted for using methamphetamines as her drug screen came back positive for methamphetamines and amphetamines. The patient initially denied this to her outpatient provider but admits to it today. She states that she uses methamphetamines in order to give her energy to function during the day. She states that it is "no one's business" which she uses. The patient admits that she is diagnosed with sleep apnea but does not wear CPAP. PAST PSYCHIATRIC HISTORY: The patient has a previous diagnosis of schizoaffective disorder, bipolar type, and amphetamine use disorder. The patient has had multiple inpatient psychiatric hospitalizations, approximately 2007. She was last admitted on to this psychiatric unit in January 2019. The issue is currently on a regimen of Wellbutrin, Prolixin, and Xanax. As per coordination with [facility], the patient did not receive her 12.5 mg IM dose of Prolixin that was due on 05/14/2020. The patient is currently denying any prior suicide attempts. As per previous medical records, the patient claimed allergies to Haldol, Invega, penicillins, and Seroquel. PMH: Past Medical History: No Reported History Additional Past Medical History / Comment(s): ADHD History of Any Multi-Drug Resistant Organisms: None Reported Past Surgical History: No Surgical Hx Reported Additional Past Surgical History / Comment(s): pt not answering questions well Past Anesthesia/Blood Transfusion Reactions: No Reported Reaction Past Psychological History: ADD/ADHD, Schizoaffective Disorder Smoking Status: Never smoker Past Alcohol Use History: Occasional Past Drug Use History: Marijuana ALLERGIES: Haldol, Invega, penicillin, Seroquel CHEMICAL DEPENDENCY HISTORY: The patient admits to methamphetamine use. She denies any tobacco use. She denies any current marijuana use. She reports occasional alcohol use. FAMILY PSYCHIATRIC/SUBSTANCE USE HISTORY: As per chart review, the patient reported that her mother was diagnosed with schizophrenia. SOCIAL HISTORY: Patient was born and raised in [place], [place]. She graduated high school. She is currently . She reports that she has 2 adult children. She has a 20-year-old daughter and a 27-year-old son. She states that she has been living with her 27-year-old son. She is currently unemployed and receives Social Security disability. She does have a history of legal problems including charges of domestic violence and assault and battery. She reports no current legal issues. She denies any history. MENTAL STATUS EXAM: General Appearance: Patient appears to be stated age is alert, directable, and attempts to cooperate. Patient appears to have fair hygiene and grooming. Obese body habitus. Wearing a mask for covid precautions. Behavior: Patient is seated without any agitated behavior. Intense eye contact. Elevated psychomotor activity. Speech: Patient's speech is fluent and nonpressured. Mood/Affect: Patient reports their mood is annoyed and wanting to leave, affect is congruent and irritable. Suicidality/Homicidality: Patient denies having any homicidal ideation intent or plan. Denies any suicidal ideation, intention and or plan. Perceptions: Patient denies any visual hallucinations and denies any auditory hallucinations Though content/process: There is no evidence of any delusional thought content and thought process is linear and goal-directed. Memory and concentration: AOX3, grossly intact for the purposes of this session. Can spell "WORLD" backwards Judgment and insight: poor STRENGTHS/WEAKNESSES: Strength is that the patient has stable income. Weakness is that patient engages in methamphetamine abuse and has very poor insight and judgment. INTELLECT: average IMPRESSIONS: Schizoaffective disorder, bipolar type Methamphetamine abuse PLAN: -Patient is admitted under involuntary status to [facility] for stabilization of psychiatric symptoms and safety - Patient admitted under sampler pickup order. -Medications : Will start patient on Wellbutrin 300 mg by mouth daily for depression Start Prolixin 3 mg by mouth at bedtime with plans to graduate titrate this medication over the weekend. Plan to administer Prolixin Decanoate 12.5 mg IM on Thursday. Patient is under court order. If she refuses prolixin oral, she will receive prolixin IM 2.5 mg. -Ativan and Haldol PRN for agitation/aggression -Patient was counselled on substance abuse but is precontemplative to stop methamphetamine. -Patient was informed of the risks, benefits and side effects of the medication and patient verbally consented to taking the medications. Patient signed med consent form and was placed in chart. -Internal Medicine consult to perform medical evaluation and physical. -NRT - nicotine patch -SW on board for discharge planning. Encourage patient to participate in groups to work on coping skills.
[2020-07-20] MEDS ORDERED: flUPHENAZine 2.5 MG/ML (MDV) 10 ML VIAL IM PRN (16:00)
[2020-07-21] MEDS: buPROPion XL 300 MG TAB.ER.24H PO SCH (09:14)
[2020-07-21] MEDS: NICOTINE 14MG/24HR PATCH TRANSDERM SCH ×2 (09:14→12:37)
--- NOTE | 2020-07-21 13:24 | P.PN ---
Progress Note - Text Progress Note Date: 07/21/20 Patient presented to the hospital on 07/20/2020 per minute into the emergency department on a pickup order by police. She has been noted to be loud, vulgar, and profane, verbalizing personal insults against the physician. This was after she was confronted for using methamphetamines as her drug screen came back positive for methamphetamines and amphetamines. This patient was seen in her room and told me that she does not need to be here and she was "ordered to be here". She stated that she does not have a mental illness. She is in her bed covered with sheets and her mood and affect is very labile still. This patient has no insight into her illness. She will continue to be maintained in the milieu and on medication since she continues to be a risk to self and others.
--- NOTE | 2020-07-21 19:15 | CONS ---
CONSULTATION CHIEF COMPLAINT: Major depression. HISTORY OF PRESENT ILLNESS: This lady was admitted to the psych unit. According to her, she decided that she did not need to take her medications anymore and came off them and apparently went into an acute psychosis. REVIEW OF SYSTEMS: She denies headaches, chest pain, shortness of breath, abdominal pain, fever, chills, nausea, vomiting, urinary complaints, etc. Past medical history, family history and personal and social histories reveal that she is ALLERGIC to PENICILLIN and she has not been seen since June, but then she was on Xanax and vitamin D. She drinks occasionally and does smoke. PHYSICAL EXAMINATION: Blood pressure 132/78 with a pulse of 92, respirations 20 and she is afebrile. In general she appeared to be in no acute distress. She seemed anxious. Head, ears, eyes, nose, mouth and throat were normal. The chest is clear. Cardiac exam is normal. Abdomen is soft, nontender. Extremities: Normal. Neurological is intact. She is admitted to the hospital diagnoses. 1. Major depression. 2. Acute psychosis? 3. Nicotine abuse. RECOMMENDATIONS: None from my perspective at this time medically. Thank you respectfully. MMODL / IJN: [id number] /
[2020-07-22] MEDS: NICOTINE 14MG/24HR PATCH TRANSDERM SCH ×2 (08:39→14:04)
[2020-07-22] MEDS: buPROPion XL 300 MG TAB.ER.24H PO SCH (08:39)
--- NOTE | 2020-07-22 12:01 | P.PN ---
Progress Note - Text Progress Note Date: 07/22/20 The patient has a previous diagnosis of schizoaffective disorder, bipolar type, and amphetamine use disorder. The patient has had multiple inpatient psychiatric hospitalizations. She was last admitted on to this psychiatric unit in January 2019.The patient admits that she is diagnosed with sleep apnea but does not wear CPAP. I met with the patient in her room and she told me she is feeling tired and was laying under the bed sheets. She told me "let me go home". I explained to her the process of discharge from the hospital. I explained that she needs to get out of the room and needs to participate in unit activities. Patient listened and stated Quiet and did not say anything.
[2020-07-23] MEDS: buPROPion XL 300 MG TAB.ER.24H PO SCH (08:52)
[2020-07-23] MEDS: NICOTINE 14MG/24HR PATCH TRANSDERM SCH (08:52)
[2020-07-23] MEDS ORDERED: fluPHENAZine DECANOATE 25 MG/ML 5ML MDV IM ONE (09:15)
[2020-07-23 11:49] VITALS: BP 117/69; PULSE 87; RESP 20; TEMP 97
--- NOTE | 2020-07-23 11:59 | P.DS ---
Providers Date of admission: 07/20/20 02:32 Expected date of discharge: 07/23/20 Attending physician: Dedrick Buckley MD Consults: 07/20/20 02:48 Consult Physician Routine Consulting Provider: Jacob William Consult Reason/Comments: h and p Do you want consulting provider notified?: Yes, Notify in am Primary care physician: Jacob William - Discharge Diagnosis(es) (1) Schizoaffective disorder Current Visit: Yes Status: Acute Priority: High (2) Methamphetamine abuse Current Visit: Yes Status: Acute Priority: High (3) Noncompliance with treatment Current Visit: Yes Status: Chronic Priority: High Hospital Course: Admission HPI: Patient is a , unemployed, 45-year-old female who is currently under court order for treatment for schizoaffective disorder Patient presented to the hospital on 07/20/2020 per minute into the emergency department on a pickup order by police. The patient maintains that she should not have been picked up and that there is no reason for her to be admitted. She is currently not reporting any suicidal or homicidal ideation, intention, and/or plan. She is denying any auditory or visualizations. She denied any paranoia or other delusions. In regards to depressive symptoms, the patient is not reporting any significant issues aside from difficulty with sleep and low energy. She is not reporting any significant manic symptoms at this time. She denies any increased goal-directed behavior, mood swings, impulsivity, or grandiosity. As per review of Dr Bates's medication review note from 07/04/2020, the patient's ACT team felt like the patient was under playing her symptoms to the physician. The patient has also been noted to be upset and labile toward [facility]. She has been noted to be loud, vulgar, and profane, verbalizing personal insults against the physician. This was after she was confronted for using methamphetamines as her drug screen came back positive for methamphetamines and amphetamines. The patient initially denied this to her outpatient provider but admits to it today. She states that she uses methamphetamines in order to give her energy to function during the day. She states that it is "no one's business" which she uses. The patient admits that she is diagnosed with sleep apnea but does not wear CPAP. Hospital course: Upon admission to the unit patient was initially upset that she has been admitted to the hospital stating that she does not need any further treatment. Patient was however directable and agreeable to commence treatment. The patient was picked up on a pickup order and is currently court ordered for mental health treatment. The patient was started on her home medication of Wellbutrin and Prolixin was also added to her regimen with plans to transition the patient back to Prolixin Decanoate which she was receiving on a monthly basis. The patient was also seen by the medical team for history and physical exam. The patient was adherent with her medications. Over the course of the hospitalization, the patient gradually improved in regards to her insight, mood, sleep, and her tolerance of the medications. On 07/23/20, the patient was administered Prolixin Decanoate 12.5 mg IM. She tolerated the injection well. On the day of discharge, the patient is not reporting any suicidal or homicidal ideation, intention, and/or plan. She is not reporting any auditory or visual hallucinations. She is denying any paranoia or other delusions. She is been adherent with her medications and is not reporting any significant side effects. The patient does have a significant history of substance abuse however was counseled on abstaining from all substances including alcohol and marijuana. She was also counseled on avoiding use of methamphetamines. The patient appears to be pre-contemplative on that use at this time. She was counseled that she has been diagnosed with obstructive sleep apnea and therefore should be wearing his CPAP if she is concerned about her energy. Patient appears to be pre- contemplative about this as well. Patient was counseled on the medications and the need for regular compliance and was encouraged to follow-up with her outpatient appointments with [facility]. She was also encouraged to follow-up with her primary care appointments as well. Prior to discharge, family meeting will be arranged with social organization professor to answer any questions and ensure safety. Mental status exam: General Appearance: Patient appears to be stated age is alert, pleasant, and cooperative. Patient is in no acute distress and has fair hygiene and grooming. Obese body habitus. Hirsutism noted. Behavior: Patient is calmly seated without any agitated behavior. Normal psychomotor activity. Eye contact is intense. Speech: Patient's speech is fluent and nonpressured. Mood/Affect: Patient reports their mood is "feeling ready to go", affect is congruent and euthymic. Suicidality/Homicidality: Patient denies having any suicidal or homicidal ideation intent or plan. Perceptions: Patient denies any auditory or visual hallucinations. Though content/process: There is no evidence of any delusional thought content and thought process is linear and goal-directed. Memory and concentration: AOX3, grossly intact for the purposes of this session. Can spell "WORLD" backwards correctly. Judgment and insight: Improved with guarded prognosis Impression: Schizoaffective disorder, bipolar type Methamphetamine abuse Nicotine dependence Plan: -Continue with discharge today as patient has improved and stabilized psychiatrically and is not currently an imminent threat to herself and/or others. Patient will remain at chronically elevated risk for harm to self and/or others due to her substance abuse. -Continue medications: Prolixin Decanoate 12.5 mg IM last administered on 07/23/20. Next dose due on 08/06/2020. Prolixin oral medication 1 mg by mouth twice a day for 14 days Wellbutrin. Milligrams by mouth daily Nicotine replacement patches -Patient was counseled on the need for medication compliance and appropriate follow-up at mental health and also primary care for medical issues. Patient verbalized understanding and agreed. -Social work to arrange for and conduct family meeting to ensure safety upon discharge and answer any questions/concerns. Social work also to arrange for patients follow up appointments with [facility] for psychiatric care along with follow up with primary care provider. -Patient counseled on abstaining from recreational drugs and marijuana and alcohol. Was informed/educated on the adverse effects on their physical and mental health. Patient verbally agreed and understood. Patient was offered s ubstance abuse treatment however declined at this time. -Patient was instructed to return to the hospital or seek immediate medical care if their psychiatric or medical symptoms do worsen or reoccur. -Psychoeducation and supportive therapy provided to patient. Risks and benefits of pharmacological treatment versus the risks and benefits of nontreatment weight and discussed. Informed consent discussion held. Common side effects of psychotropics discussed such as, but not limited to headache, GI disturbance, sexual dysfunction, movement disorders, sedation, and orthostatic hypotension. Life threatening and blackbox warnings of prescribed medications also discussed. Potential risks of operating a vehicle or heavy machinery discussed with patient at length. Advised on importance of compliance and a reliable and responsible manner. Patient advised to review FDA consumer labeling of all medications prior to taking. Patient verbalized understanding of potential risks, and agrees with current treatment plan. Patient advised to medically contact physician/emergency personnel if any acute changes in condition occur. Laboratory Results Urine Color Yellow 07/20/20 02: Urine Appearance Cloudy (Clear) H 07/20/20 02: Urine pH 6.0 (5.0-8.0) 07/20/20 02: Ur Specific [place] 1.019 (1.001-1.035) 07/20/20 02: Urine Protein Negative (Negative) 07/20/20: Urine Glucose (UA) Negative (Negative) 07/20/20: Urine Ketones Negative (Negative) 07/20/20: Urine Blood Negative (Negative) 07/20/20: Urine Nitrite Negative (Negative) 07/20/20 02: Urine Bilirubin Negative (Negative) 07/20/20: Urine Urobilinogen <2.0 mg/dL (<2.0) 07/20/20 02: Ur Leukocyte Esterase Small (Negative) H 07/20/20 02:29 Urine WBC 6 /hpf (0-5) H 07/20/20 02:29 Ur Squamous Epith Cells 6 /hpf (0-4) H 07/20/20 02: Urine Bacteria Rare /hpf (None) H 07/20/20 02:29 Urine Mucus Rare /hpf (None) H 07/20/20 02:29 Urine HCG, Qual Not Detected (Not Detectd) 07/20/20 02:34 Urine Opiates Screen Not Detected (NotDetected) 07/20/20 02: Ur Oxycodone Screen Not Detected (NotDetected) 07/20/20 02:29 Urine Methadone Screen Not Detected (NotDetected) 07/20/20 02:29 Ur Propoxyphene Screen Not Detected (NotDetected) 07/20/20 02: Ur Barbiturates Screen Not Detected (NotDetected) 07/20/20 02:29 U Tricyclic Antidepress Not Detected (NotDetected) 07/20/20 02:29 Ur Phencyclidine Scrn Not Detected (NotDetected) 07/20/20 02:29 Ur Amphetamines Screen Detected (NotDetected) H 07/20/20 02:29 U Methamphetamines Scrn Detected (NotDetected) H 07/20/20 02:29 U Benzodiazepines Scrn Not Detected (NotDetected) 07/20/20 02:29 Urine Cocaine Screen Not Detected (NotDetected) 07/20/20 02:29 U Marijuana (THC) Screen Not Detected (NotDetected) 07/20/20 02:29 Coronavirus (PCR) Not Detected (Not Detectd) 07/20/20 02:40 Vital Signs Temp 97.0 F L 07/23/20 11:48 Pulse 87 07/23/20 11:48 Resp 20 07/23/20 11:48 BP 117/69 07/23/20 11:48 Pulse Ox 98 07/20/20 03:44 Intake & Output 07/22/20 07/23/20 07/23/20 18:59 06:59 18:59 Weight 96.7 kg Allergies Allergy/AdvReac Type Severity Reaction Status Date / Time haloperidol From Haldol Allergy Unknown Verified 07/22/20 15:05 haloperidol lactate Allergy Unknown Verified 07/22/20 15:05 From Haldol paliperidone From Invega Allergy Unknown Verified 07/22/20 15:05 Penicillins Allergy Unknown Verified 07/22/20 15:05 quetiapine fumarate Allergy Unknown Verified 07/22/20 15:05 From Seroquel zolpidem tartrate Allergy Unknown Verified 07/22/20 15:05 From Ambien Patient Condition at Discharge: Stable Plan - Discharge Summary Discharge Rx Participant: Yes New Discharge Prescriptions: New Nicotine 14Mg/24Hr Patch [Habitrol] 1 patch TRANSDERM DAILY 30 Days patch buPROPion XL [Wellbutrin XL] 300 mg PO DAILY 30 Days tab.er.24h fluPHENAZine [Prolixin] 1 mg PO BID 14 Days tab Continue ALPRAZolam [Xanax] 1 mg PO BID PRN PRN Reason: Anxiety Changed fluPHENAZine decanoate [Prolixin Decanoate] 12.5 mg IM Q14D #1 ml Discontinued buPROPion HCL [buPROPion HCL Xl] 150 mg PO DAILY buPROPion XL [Wellbutrin Xl] 300 mg PO DAILY Discharge Medication List ALPRAZolam [Xanax] 1 mg PO BID PRN 07/19/20 [History] Nicotine 14Mg/24Hr Patch [Habitrol] 1 patch TRANSDERM DAILY 30 Days patch 07/23/20 [Rx] buPROPion XL [Wellbutrin XL] 300 mg PO DAILY 30 Days tab.er.24h 07/23/20 [Rx] fluPHENAZine [Prolixin] 1 mg PO BID 14 Days tab 07/23/20 [Rx] fluPHENAZine decanoate [Prolixin Decanoate] 12.5 mg IM Q14D #1 ml 07/23/20 [Rx] Follow up Appointment(s)/Referral(s): Jacob William MD [Primary Care Provider] - 1-2 days Activity/Diet/Wound Care/Special Instructions: Activity and diet as tolerated. Avoid the use of street drugs and alcohol. Take all medications as prescribed. When you are in need of refills on your medications please contact your medical provider and/or outpatient psychiatrist to have this done. Please go to scheduled outpatient appointment for aftercare treatment. If symptoms return or become worse, call the crisis line at and/or go to the nearest emergency room for evaluation.
== END 2020-07-23 12:23 | disposition home or self-care (01) | DRG 885 ==
LOC: EC 20:10 → 3MHU 07-20 02:32
PROVIDERS: ADMIT Psychiatry & Neurology Psychiatry; ATTEND Psychiatry & Neurology Psychiatry
DX: F25.0 Schizoaffective disorder, bipolar type (principal); E66.9 Obesity, unspecified; F15.10 Other stimulant abuse, uncomplicated; F17.200 Nicotine dependence, unspecified, uncomplicated; F90.9 Attention-deficit hyperactivity disorder, unspecified type; G47.33 Obstructive sleep apnea (adult) (pediatric); L68.0 Hirsutism; Z56.0 Unemployment, unspecified; Z65.3 Problems related to other legal circumstances; Z81.8 Family history of other mental and behavioral disorders; Z88.8 Allergy status to other drugs, medicaments and biological substances; Z91.19 Patient's noncompliance with other medical treatment and regimen; Z20.822 Contact with and (suspected) exposure to COVID-19; Z68.39 Body mass index [BMI] 39.0-39.9, adult
CPT/HCPCS: 80306; 81001; 81025; 82075; 87635; 99284

== ENCOUNTER → 2020-11-07 | Outpatient (CLI) | payer MEDICARE, MEDICAID ==
--- NOTE | 2020-11-07 20:57 | SFUN ---
SLEEP CENTER FOLLOW UP NOTE DATE OF SERVICE: 11/07/2020 45-year-old lady has been followed in Sleep Center for treatment of obstructive sleep apnea-hypopnea syndrome. Patient had titration in April of 2019, but for different reasons, including COVID-19 problem at that time, the patient was not able to receive her CPAP equipment, which was recommended at that time. Patient continued to have short sleep problems, awakenings from sleep, significant excessive daytime sleepiness. [place] Sleepiness Scale is 21 today. The patient has extremely severe sleep apnea with apnea-hypopnea index 115.2 with oxygen desaturation to 59.8% by results of sleep study. MEDICATIONS: Prolixin. PHYSICAL EXAMINATION: GENERAL: Patient in no distress. BP 111/80, HR 104, RR 16, height 5 feet 3 inches, weight 216, body mass index 38.2, temperature 98.4, oxygen saturation at room air 97%. HEENT: Oropharynx, low position of soft palate. PERRLA, EOMI, evaluation of oropharynx showed tongue protrudes midline. NECK: Supple, no JVD. Thyroid is not palpable. LUNGS: Clear to percussion and to auscultation. Good air exchange. No wheezing or rhonchi. HEART: S1, S2 regular. No murmurs, gallops, or rubs. ABDOMEN: Obese. Soft and nontender. Bowel sounds are present. No organomegaly appreciated. EXTREMITIES: No clubbing or cyanosis. [employer]CR[employer] W[employer]ER: Awake, alert, and oriented X3. Cranial nerves 2 to 7 intact. There is no fasciculation or atrophy. noted. No focal deficits observed. IMPRESSION: 1. Extremely severe obstructive sleep apnea-hypopnea syndrome; apnea-hypopnea index 115 with oxygen saturation of 59.8%. 2. Obesity, body mass index 38.2. 3. Periodic limb movements have been documented during titration. No periodic limb movement during diagnostic night. 4. Significant excessive daytime sleepiness. [place] Sleepiness Scale today 21. Differential diagnosis may include additional diagnosis of hypersomnia including narcolepsy. 5. History of attention deficit hyperactivity disorder. 6. History of epilepsy in childhood. 7. History of psychotic episode 7 years ago. 8. History of restless leg symptoms. PLAN: 1. I write a prescription for CPAP with a nasal pillow mask, which is patient preference, and patient should get that should be started on treatment as soon as possible. 2. Losing weight. 3. Sleep hygiene with time in bed 7 1/2-8 hours. 4. No driving if feeling sleepiness. 5. I will see patient after she will be started on treatment with CPAP to evaluate her clinical response to treatment compliance with treatment and make any necessary adjustments related to mask fitting, pressure and humidification. If the patient will continue to have sleepiness on CPAP, we may proceed with multiple sleep latency test for objective evaluation of her symptoms of sleepiness. Thank you very much for allowing me to participate in management of the patient's care. Sincerely, Britton Tran MD, PhD, FAASM Diplomat of [place] [employer] Sleep Medicine Board of [place] [employer] [facility] [place] MMPORTIAL / MELLN: [id number] /
== END | disposition home or self-care (01) ==
LOC: SLEEP 11:36
PROVIDERS: ATTEND Internal Medicine
DX: G47.33 Obstructive sleep apnea (adult) (pediatric) (principal); E66.9 Obesity, unspecified; Z86.59 Personal history of other mental and behavioral disorders; Z86.69 Personal history of other diseases of the nervous system and sense organs; Z68.38 Body mass index [BMI] 38.0-38.9, adult

== ENCOUNTER 2020-12-10 22:42 | Inpatient (IN) | payer MEDICARE, OTHER ==
[2020-12-10 23:09] VITALS: PULSE 94; RESP 16
--- NOTE | 2020-12-10 23:22 | ED ---
Psych HPI - General Chief Complaint: Psychiatric Symptoms Stated Complaint: Mental Health Time Seen by Provider: 12/10/20 22:53 Source: patient Mode of arrival: EMS - History of Present Illness Initial Comments: This is a 45-year-old female to the ER for evaluation today. Patient wants to sign herself in for psychiatric evaluation and treatment, management of severe depression suicidal thoughts. Patient states she is actively suicidal with plan to overdose to kill himself. History of marijuana use and ADHD. Denies recent drug or alcohol abuse MD Complaint: suicidal ideation, feels depressed -: days(s) Associated Psychiatric Symptoms: depression, suicidal ideation History of same: Yes Quality: constant, getting worse Improves With: none Worsens With: none Context: significant life stressor Associated Symptoms: denies other symptoms Treatments Prior to Arrival: placed on mental health hold If Self Harm: admits thoughts of self harm - Related Data Home Medications Medication Instructions Recorded Confirmed ALPRAZolam [Xanax] 1 mg PO BID PRN 07/19/20 07/19/20 Previous Rx's Medication Instructions Recorded Nicotine 14Mg/24Hr Patch [Habitrol] 1 patch TRANSDERM DAILY 30 Days 07/23/20 patch buPROPion XL [Wellbutrin XL] 300 mg PO DAILY 30 Days tab.er.24h 07/23/20 fluPHENAZine [Prolixin] 1 mg PO BID 14 Days tab 07/23/20 fluPHENAZine decanoate [Prolixin 12.5 mg IM Q14D #1 ml 07/23/20 Decanoate] Allergies Allergy/AdvReac Type Severity Reaction Status Date / Time haloperidol [From Haldol] Allergy Unknown Verified 07/22/20 15:05 haloperidol lactate Allergy Unknown Verified 07/22/20 15:05 [From Haldol] paliperidone [From Invega] Allergy Unknown Verified 07/22/20 15:05 Penicillins Allergy Unknown Verified 07/22/20 15:05 quetiapine fumarate Allergy Unknown Verified 07/22/20 15:05 [From Seroquel] zolpidem tartrate Allergy Unknown Verified 07/22/20 15:05 [From Ambien] Review of Systems ROS Statement: Those systems with pertinent positive or pertinent negative responses have been documented in the HPI. ROS Other: All systems not noted in ROS Statement are negative. Past Medical History Past Medical History: No Reported History Additional Past Medical History / Comment(s): ADHD History of Any Multi-Drug Resistant Organisms: None Reported Past Surgical History: No Surgical Hx Reported Additional Past Surgical History / Comment(s): pt not answering questions well Past Anesthesia/Blood Transfusion Reactions: No Reported Reaction Past Psychological History: ADD/ADHD, Anxiety, Schizoaffective Disorder Smoking Status: Current every day smoker Past Alcohol Use History: Occasional Past Drug Use History: Marijuana - Past Family History Father Additional Family Medical History / Comment(s): Patient refuses to give any information on her family including her mother and father. General Exam Limitations: no limitations General appearance: alert, in no apparent distress Head exam: Present: atraumatic, normocephalic, normal inspection Eye exam: Present: normal appearance, PERRL, EOMI. Absent: scleral icterus, conjunctival injection, periorbital swelling ENT exam: Present: normal exam, mucous membranes moist Neck exam: Present: normal inspection. Absent: tenderness, meningismus, lymphadenopathy Respiratory exam: Present: normal lung sounds bilaterally. Absent: respiratory distress, wheezes, rales, rhonchi, stridor Cardiovascular Exam: Present: regular rate, normal rhythm, normal heart sounds. Absent: systolic murmur, diastolic murmur, rubs, gallop, clicks GI/Abdominal exam: Present: soft, normal bowel sounds. Absent: distended, tenderness, guarding, rebound, rigid Extremities exam: Present: normal inspection, full ROM, normal capillary refill. Absent: tenderness, pedal edema, joint swelling, calf tenderness Back exam: Present: normal inspection Neurological exam: Present: alert, oriented X3, CN II-XII intact Psychiatric exam: Present: normal affect, normal mood Skin exam: Present: warm, dry, intact, normal color. Absent: rash Course Vital Signs 12/10/20 23:03 Temperature 97.7 F Pulse Rate 94 Respiratory 16 Rate Blood Pressure 154/101 O2 Sat by Pulse 96 Oximetry - Reevaluation(s) Reevaluation #1: 12/11/20 02:19 Medical record is reviewed Reevaluation #2: 12/11/20 02:19 Patient medically clear for psychiatric evaluation Medical Decision Making - Medical Decision Making 45 female to be admitted for psychiatric evaluation and treatment - Lab Data Lab Results 12/10/20 Range/Units 23:37 Urine Opiates Screen Not Detected (NotDetected) Ur Oxycodone Screen Not Detected (NotDetected) Urine Methadone Screen Not Detected (NotDetected) Ur Propoxyphene Screen Not Detected (NotDetected) Ur Barbiturates Screen Not Detected (NotDetected) U Tricyclic Antidepress Not Detected (NotDetected) Ur Phencyclidine Scrn Not Detected (NotDetected) Ur Amphetamines Screen Detected H (NotDetected) U Methamphetamines Scrn Detected H (NotDetected) U Benzodiazepines Scrn Not Detected (NotDetected) Urine Cocaine Screen Detected H (NotDetected) U Marijuana (THC) Screen Not Detected (NotDetected) Disposition Clinical Impression: Schizoaffective disorder, Mood disorder, Suicidal ideation, Depression Disposition: ADMITTED IP TO THIS HOSP Condition: Fair Is patient prescribed a controlled substance at d/c from ED?: No
[2020-12-11 00:51] LABS: Amphetamine Screen,Urine Detected (NotDetected); Barbiturate Screen,Urine Not Detected (NotDetected); Benzodiazepines Screen,Urine Not Detected (NotDetected); Cocaine Screen,Urine Detected (NotDetected); Methadone Screen, Urine Not Detected (NotDetected); Opiate Screen,Urine Not Detected (NotDetected); Oxycodone Screen, Urine Not Detected (NotDetected); Phencyclidine Screen,Urine Not Detected (NotDetected); Tricyclic Antidepressant,Urine Not Detected (NotDetected); Urn Cannabinoid Scrn Not Detected (NotDetected)
[2020-12-11] MEDS ORDERED: ACETAMINOPHEN TAB 325 MG TAB PO PRN (03:35)
[2020-12-11] MEDS ORDERED: MAGNESIUM HYDROXIDE 2,400 MG/10 ML CUP PO PRN (03:35)
[2020-12-11] MEDS ORDERED: MAG HYDROX/AL HYDROX/SIMETH 30 ML CUP PO PRN (03:35)
[2020-12-11] MEDS ORDERED: LORazepam 1 MG TAB PO PRN (03:35)
[2020-12-11] MEDS ORDERED: LORazepam 2 MG/ML INJ IM PRN (03:37)
[2020-12-11] MEDS ORDERED: ZIPRASIDONE 20 MG CAP PO PRN (03:38)
[2020-12-11] MEDS ORDERED: ZIPRASIDONE 20 MG VIAL IM PRN (03:38)
[2020-12-11 03:43] VITALS: BP 116/76; TEMP 98.9
[2020-12-11 04:22] LABS: Appearance,Urine Cloudy (Clear); Bacteria,Urine Few /hpf; Bilirubin,Urine Negative (Negative); Blood,Urine Trace (Negative); Color,Urine Yellow; Glucose,Urine (UA) Negative (Negative); Ketones,Urine Negative (Negative); Leukocyte Esterase,Urine Large (Negative); Mucus,Urine Rare /hpf; Nitrite,Urine Negative (Negative); PH, Urine 6.5 (5.0-8.0); Protein,Urine Trace (Negative); RBC,Urine 2 /hpf (0-5); Specific Gravity,Urine 1.013 (1.001-1.035); Squamous Epithelial Cell,Urine 28 /hpf (0-4); Urobilinogen,Urine <2.0 mg/dL (<2.0); WBC,Urine 73 /hpf (0-5)
[2020-12-11] MEDS: buPROPion XL 300 MG TAB.ER.24H PO SCH (08:25)
[2020-12-11] MEDS: NICOTINE 14MG/24HR PATCH TRANSDERM SCH ×2 (08:26→16:05)
--- NOTE | 2020-12-11 13:17 | P.HP ---
Psychiatric H&P - . H&P Date: 12/11/20 History & Physical: Allergies Allergy/AdvReac Type Severity Reaction Status Date / Time haloperidol [From Haldol] Allergy Unknown Verified 12/11/20 03:47 haloperidol lactate Allergy Unknown Verified 12/11/20 03:47 [From Haldol] paliperidone [From Invega] Allergy Unknown Verified 12/11/20 03:47 Penicillins Allergy Unknown Verified 12/11/20 03:47 quetiapine fumarate Allergy Unknown Verified 12/11/20 03:47 [From Seroquel] zolpidem tartrate Allergy Unknown Verified 12/11/20 03:47 [From Ambien] Vital Signs Temp 98.9 F 12/11/20 03:06 Pulse 94 12/11/20 03:06 Resp 16 12/11/20 03:06 BP 116/76 12/11/20 03:06 Pulse Ox 96 12/11/20 03:06 Intake & Output 12/10/20 12/11/20 12/11/20 18:59 06:59 18:59 Weight 97.976 kg Laboratory Last Values Urine Color Yellow 12/10/20 23:37 Urine Appearance Cloudy (Clear) H 12/10/20 23:37 Urine pH 6.5 (5.0-8.0) 12/10/20 23:37 Ur Specific [place] 1.013 (1.001-1.035) 12/10/20 23:37 Urine Protein Trace (Negative) H 12/10/20 23:37 Urine Glucose (UA) Negative (Negative) 12/10/20 23:37 Urine Ketones Negative (Negative) 12/10/20 23:37 Urine Blood Trace (Negative) H 12/10/20 23:37 Urine Nitrite Negative (Negative) 12/10/20 23:37 Urine Bilirubin Negative (Negative) 12/10/20 23:37 Urine Urobilinogen <2.0 mg/dL (<2.0) 12/10/20 23:37 Ur Leukocyte Esterase Large (Negative) H 12/10/20 23:37 Urine RBC 2 /hpf (0-5) 12/10/20 23:37 Urine WBC 73 /hpf (0-5) H 12/10/20 23:37 Ur Squamous Epith Cells 28 /hpf (0-4) H 12/10/20 23:37 Urine Bacteria Few /hpf (None) H 12/10/20 23:37 Urine Mucus Rare /hpf (None) H 12/10/20 23:37 Urine HCG, Qual Not Detected (Not Detectd) 12/10/20 23:37 Urine Opiates Screen Not Detected (NotDetected) 12/10/20 23:37 Ur Oxycodone Screen Not Detected (NotDetected) 12/10/20 23:37 Urine Methadone Screen Not Detected (NotDetected) 12/10/20 23:37 Ur Propoxyphene Screen Not Detected (NotDetected) 12/10/20 23:37 Ur Barbiturates Screen Not Detected (NotDetected) 12/10/20 23:37 U Tricyclic Antidepress Not Detected (NotDetected) 12/10/20 23:37 Ur Phencyclidine Scrn Not Detected (NotDetected) 12/10/20 23:37 Ur Amphetamines Screen Detected (NotDetected) H 12/10/20 23:37 U Methamphetamines Scrn Detected (NotDetected) H 12/10/20 23:37 U Benzodiazepines Scrn Not Detected (NotDetected) 12/10/20 23:37 Urine Cocaine Screen Detected (NotDetected) H 12/10/20 23:37 U Marijuana (THC) Screen Not Detected (NotDetected) 12/10/20 23:37 12/11/20 13:16 IDENTIFYING DATA: Patient is a , unemployed, 45-year-old female with a significant history of schizoaffective disorder and methamphetamine abuse who was admitted for depression and suicidal ideation. HPI: Patient presented to the hospital in 12/11/2020, who presents emergency department voluntarily for suicidal ideation with a plan to overdose on her medications. While in the emergency department, the patient was noted by the EPS nurse to deny any homicidal ideation, hallucinations, but did appear to have a fixed delusion that she was still to her ex- and that he was going to come back to her. Upon evaluation on the psychiatric unit, the patient states that "I just don't have a good place to live. I don't have a good roommate. He uses drugs and gets me to use it too." The patient states that she felt suicidal after being in an argument with her roommate. She reports that all he does is "crack." She says that she does not want to do cracker methamphetamines anymore and she last used 3-4 days prior to this admission. She is currently denying any suicidal or homicidal ideation, intention, and/or plan. She is not reporting any auditory or visual hallucinations. She denied any paranoid delusions. The patient states that she plans to quit using any drugs as this is what causes her to have worse problems with her mood. She states that she is no longer getting high from drugs. PAST PSYCHIATRIC HISTORY: Patient states that she has been previous diagnosis of schizoaffective disorder, crack cocaine use disorder, and methamphetamine abuse. The patient is currently on a prescribed regimen of Prolixin decanoate 50 mg IM every 2 weeks and Wellbutrin XL 300 mg daily. Furthermore, the patient is prescribed Xanax by her primary care provider. Patient was last admitted on to the psychiatric unit in July 2020. Prior to this, the patient was admitted to the psychiatric unit in January 2019. The patient follows with [facility] in outpatient setting although her primary care physician continues to prescribe her Xanax for anxiety. The patient denies any prior attempts at suicide. PMH: Past Medical History: No Reported History Additional Past Medical History / Comment(s): ADHD History of Any Multi-Drug Resistant Organisms: None Reported Past Surgical History: No Surgical Hx Reported Additional Past Surgical History / Comment(s): pt not answering questions well Past Anesthesia/Blood Transfusion Reactions: No Reported Reaction Past Psychological History: ADD/ADHD, Anxiety, Schizoaffective Disorder Smoking Status: Current every day smoker Past Alcohol Use History: Occasional Past Drug Use History: Marijuana ALLERGIES: Haldol, Invega, penicillin, Seroquel, Ambien CHEMICAL DEPENDENCY HISTORY: The patient admits to methamphetamine use, crack cocaine use, but denies any tobacco use, marijuana use, or heavy alcohol use. Patient reports that she has been to rehabilitation for drug use once before but states that it was not helpful. FAMILY PSYCHIATRIC/SUBSTANCE USE HISTORY: The patient reports that her mother has been previously diagnosed schizophrenia. She states that her younger sister committed suicide. She states that she has another sister with depression. SOCIAL HISTORY: Patient was born and raised in [place], [place]. The patient graduated high school. She is currently living in [place] with a roommate. She is . She has 2 adult children, a 20-year-old daughter and a 27-year-old son. The patient does have significant legal history but is vague and guarded about this. As per review of the patient's [facility] note, the patient does have a history of a domestic violence charge, breaking and entering, contempt, filing a false police report, and assault and battery. MENTAL STATUS EXAM: General Appearance: Patient appears to be stated age is alert, directable, and attempts to cooperate. Patient appears to have poor hygiene and grooming. Obese body habitus. Behavior: Patient is seated without any agitated behavior. Psychomotor activity slightly elevated. Eye contact is appropriate. Speech: Patient's speech is fluent and nonpressured. Spontaneous, normal rate, tone, and volume. Mood/Affect: Patient reports their mood is anxious, affect is congruent and nervous Sucidality: Patient denies having any homicidal ideation intent or plan. Denies any suicidal ideations intent or plan Perceptions: Patient denies any visual hallucinations and denies any auditory hallucinations Though content/process: There is no evidence of any delusional thought content and thought process is linear and goal-directed. Memory and concentration: AOX3, grossly intact for the purposes of this session. Can spell "WORLD" backwards Judgment and insight: poor STRENGTHS/WEAKNESSES: Strength is that the patient has stable income. Weakness is that patient engages in methamphetamine abuse and has very poor insight and judgment. INTELLECT: Average to below average. IMPRESSIONS: Schizoaffective disorder, bipolar type Methamphetamine abuse Crack cocaine abuse PLAN: -Patient is admitted under voluntary status to MHU for stabilization of psych iatric symptoms and safety. Patient signed adult voluntary form and medication consent and is placed in patient's chart. -Medications : We will continue the patient's home medications of Prolixin decanoate 50 mg IM every 2 weeks. Continue Wellbutrin XL 300 mg by mouth daily for depression This provider left a message over the [employer] system for Dr. William is the patient's primary care provider prescribing her Xanax as the patient admits to openly abusing this medication and selling it for profit. -Ativan and Haldol PRN for agitation/aggression -Patient was counselled on substance abuse and desired to cut back on use -Patient was informed of the risks, benefits and side effects of the medication and patient verbally consented to taking the medications. Patient signed med consent form and was placed in chart. -Internal Medicine consult to perform medical evaluation and physical. -NRT - nicotine patch -SW on board for discharge planning. Encourage patient to participate in groups to work on coping skills. 12/11/20 13:16
[2020-12-12 07:34] LABS: Basophils # (A) 0.1 k/uL (0-0.2); Basophils % (A) 1 %; Eosinophils # (A) 0.5 k/uL (0-0.7); Eosinophils % (A) 6 %; HCT 48.7 % (34.0-46.0); HGB 16.6 gm/dL (11.4-16.0); Lymphocytes # (A) 1.8 k/uL (1.0-4.8); Lymphocytes % (A) 22 %; MCH 30.2 pg (25.0-35.0); MCV 88.9 fL (80.0-100.0); Monocytes # (A) 0.5 k/uL (0-1.0); Monocytes % (A) 6 %; Neutrophils # (A) 5.3 k/uL (1.3-7.7); Neutrophils % (A) 63 %; Platelet Count 352 k/uL (150-450); RBC 5.48 m/uL (3.80-5.40); RDW 14.6 % (11.5-15.5); WBC 8.4 k/uL (3.8-10.6)
[2020-12-12 07:45] LABS: ALT 27 U/L (4-34); AST 26 U/L (14-36); African American GFR (CKD) >90 (>60 ml/min/1.73 sqM); Albumin 4.1 g/dL (3.5-5.0); Alkaline Phosphatase 88 U/L (38-126); Anion Gap 9 mmol/L; Blood Urea Nitrogen 10 mg/dL (7-17); Calcium 9.6 mg/dL (8.4-10.2); Carbon Dioxide 23 mmol/L (22-30); Chloride 105 mmol/L (98-107); Glucose 116 mg/dL (74-99); Non-African American GFR(CKD) 83 (>60 ml/min/1.73 sqM); Potassium 4.6 mmol/L (3.5-5.1); Sodium 137 mmol/L (137-145); Total Bilirubin 0.4 mg/dL (0.2-1.3); Total Protein 7.2 g/dL (6.3-8.2)
[2020-12-12] MEDS: buPROPion XL 300 MG TAB.ER.24H PO SCH (09:28)
[2020-12-12] MEDS: NICOTINE 14MG/24HR PATCH TRANSDERM SCH (09:28)
--- NOTE | 2020-12-12 12:22 | P.DS ---
Providers Date of admission: 12/11/20 02:07 Expected date of discharge: 12/12/20 Attending physician: Dedrick Buckley MD Consults: 12/11/20 03:35 Consult Physician Routine Consulting Provider: Jacob William Consult Reason/Comments: For H & P for Medical Follow Up Do you want consulting provider notified?: Yes Primary care physician: Jacob William - Discharge Diagnosis(es) (1) Schizoaffective disorder Current Visit: Yes Status: Acute Priority: High (2) Crack cocaine use Current Visit: Yes Status: Chronic Priority: High (3) Methamphetamine abuse Current Visit: Yes Status: Chronic Priority: High Hospital Course: Admission HPI: Patient presented to the hospital in 12/11/2020, who presents emergency department voluntarily for suicidal ideation with a plan to overdose on her medications. While in the emergency department, the patient was noted by the EPS nurse to deny any homicidal ideation, hallucinations, but did appear to have a fixed delusion that she was still to her ex- and that he was going to come back to her. Upon evaluation on the psychiatric unit, the patient states that "I just don't have a good place to live. I don't have a good roommate. He uses drugs and gets me to use it too." The patient states that she felt suicidal after being in an argument with her roommate. She reports that all he does is "crack." She says that she does not want to do cracker methamphetamines anymore and she last used 3-4 days prior to this admission. She is currently denying any suicidal or homicidal ideation, intention, and/or plan. She is not reporting any auditory or visual hallucinations. She denied any paranoid delusions. The patient states that she plans to quit using any drugs as this is what causes her to have worse problems with her mood. She states that she is no longer getting high from drugs. Patient states that she has been previous diagnosis of schizoaffective disorder, crack cocaine use disorder, and methamphetamine abuse. The patient is currently on a prescribed regimen of Prolixin decanoate 50 mg IM every 2 weeks and Wellbutrin XL 300 mg daily. Furthermore, the patient is prescribed Xanax by her primary care provider. Patient was last admitted on to the psychiatric unit in July 2020. Prior to this, the patient was admitted to the psychiatric unit in January 2019. The patient follows with [facility] in outpatient setting although her primary care physician continues to prescribe her Xanax for anxiety. The patient denies any prior attempts at suicide. Hospital course: Upon admission to the unit patient was initially presenting as euthymic and expressing a strong desire to leave. The patient was agreeable to restart her Wellbutrin and continue her Prolixin decanoate injection. During the course of the hospital physician, the patient displayed no agitated or bizarre behavior. She was adherent with her medications and was calm and cooperative with staff and peers. The patient did admit that she was using Xanax illicitly and abusing its prescription as she was selling the medication. This provider contacted Dr. William over the [employer] system to inform him of this case. On the day of discharge, patient is not reporting any suicidal or homicidal ideation, intenti on, and/or plan. She is not reporting auditory or visual hallucinations. She reports no paranoia or delusions. The patient was counseled on her medications and the need for regular adherence. The patient was also counseled on substance abuse and was offered inpatient rehabilitation which she refused. The patient states that she would like to try to quit on her own. The patient does have significant history of legal problems and was informed that if the patient continues this path, we would likely pursue a substance-abuse order for her. The patient was subsequent to picked up by her ACT team. Mental status exam: General Appearance: Patient appears to be stated age is alert, pleasant, and cooperative. Patient is in no acute distress and has fair hygiene and grooming Behavior: Patient is calmly seated without any agitated behavior. Speech: Patient's speech is fluent and nonpressured. Mood/Affect: Patient reports their mood is "I'm feeling alright", affect is congruent and euthymic. Suicidality/Homicidality: Patient denies having any suicidal or homicidal ideation intent or plan. Perceptions: Patient denies any auditory or visual hallucinations. Though content/process: There is no evidence of any delusional thought content and thought process is linear and goal-directed. Patient is future oriented. Memory and concentration: AOX3, grossly intact for the purposes of this session. Can spell "WORLD" backwards correctly. Judgment and insight: Improved with guarded prognosis Vital Signs Temp 98.9 F 12/11/20 03:06 Pulse 94 12/11/20 03:06 Resp 16 12/11/20 03:06 BP 116/76 12/11/20 03:06 Pulse Ox 96 12/11/20 03:06 Intake & Output 12/11/20 12/12/20 12/12/20 18:59 06:59 18:59 Weight 97.976 kg Impression: Schizoaffective disorder, bipolar type Methamphetamine abuse Crack cocaine abuse Plan: -Continue with discharge today as patient has improved and stabilized psychiatrically and is not currently an imminent threat to herself and/or others. Patient will remain at chronically elevated risk for harm to self and/or others due to her polysubstance abuse. -Continue medications: Prolixin decanoate 50 mg IM every 2 weeks. Wellbutrin XL 300 mg daily for depression Strongly advise to discontinue xanax. -Patient was counseled on the need for medication compliance and appropriate follow-up at mental health and also primary care for medical issues. Patient verbalized understanding and agreed. -Social work to arrange for and conduct family meeting to ensure safety upon discharge and answer any questions/concerns. Social work also to arrange for patients follow up appointments with [facility] for psychiatric care along with follow up with primary care provider. -Patient counseled on abstaining from recreational drugs and marijuana and alcohol. Was informed/educated on the adverse effects on their physical and mental health. Patient verbally agreed and understood. Patient was offered subs tance abuse treatment however declined at this time. -Patient was instructed to return to the hospital or seek immediate medical care if their psychiatric or medical symptoms do worsen or reoccur. Laboratory Results WBC 8.4 k/uL (3.8-10.6) 12/12/20 06:57 RBC 5.48 m/uL (3.80-5.40) H 12/12/20 06:57 Hgb 16.6 gm/dL (11.4-16.0) H 12/12/20 06:57 Hct 48.7 % (34.0-46.0) H 12/12/20 06:57 MCV 88.9 fL (80.0-100.0) 12/12/20 06:57 MCH 30.2 pg (25.0-35.0) 12/12/20 06:57 MCHC 34.0 g/dL (31.0-37.0) 12/12/20 06:57 RDW 14.6 % (11.5-15.5) 12/12/20 06:57 Plt Count 352 k/uL (150-450) 12/12/20 06:57 MPV 7.0 12/12/20 06:57 Neutrophils % 63 % 12/12/20 06:57 Lymphocytes % 22 % 12/12/20 06:57 Monocytes % 6 % 12/12/20 06:57 Eosinophils % 6 % 12/12/20 06:57 Basophils % 1 % 12/12/20 06:57 Neutrophils # 5.3 k/uL (1.3-7.7) 12/12/20 06:57 Lymphocytes # 1.8 k/uL (1.0-4.8) 12/12/20 06:57 Monocytes # 0.5 k/uL (0-1.0) 12/12/20 06:57 Eosinophils # 0.5 k/uL (0-0.7) 12/12/20 06:57 Basophils # 0.1 k/uL (0-0.2) 12/12/20 06:57 Sodium 137 mmol/L (137-145) 12/12/20 06:57 Potassium 4.6 mmol/L (3.5-5.1) 12/12/20 06:57 Chloride 105 mmol/L (98-107) 12/12/20 06:57 Carbon Dioxide 23 mmol/L (22-30) 12/12/20 06:57 Anion Gap 9 mmol/L 12/12/20 06:57 BUN 10 mg/dL (7-17) 12/12/20 06:57 Creatinine 0.86 mg/dL (0.52-1.04) 12/12/20 06:57 Est GFR (CKD-EPI)AfAm >90 (>60 ml/min/1.73 sqM) 12/12/20 06:57 Est GFR (CKD-EPI)NonAf 83 (>60 ml/min/1.73 sqM) 12/12/20 06:57 Glucose 116 mg/dL (74-99) H 12/12/20 06:57 Calcium 9.6 mg/dL (8.4-10.2) 12/12/20 06:57 Total Bilirubin 0.4 mg/dL (0.2-1.3) 12/12/20 06:57 AST 26 U/L (14-36) 12/12/20 06:57 ALT 27 U/L (4-34) 12/12/20 06:57 Alkaline Phosphatase 88 U/L (38-126) 12/12/20 06:57 Total Protein 7.2 g/dL (6.3-8.2) 12/12/20 06:57 Albumin 4.1 g/dL (3.5-5.0) 12/12/20 06:57 TSH 2.430 mIU/L (0.465-4.680) 12/12/20 06:57 Urine Color Yellow 12/10/20 23:37 Urine Appearance Cloudy (Clear) H 12/10/20 23:37 Urine pH 6.5 (5.0-8.0) 12/10/20 23:37 Ur Specific [place] 1.013 (1.001-1.035) 12/10/20 23:37 Urine Protein Trace (Negative) H 12/10/20 23:37 Urine Glucose (UA) Negative (Negative) 12/10/20 23:37 Urine Ketones Negative (Negative) 12/10/20 23:37 Urine Blood Trace (Negative) H 12/10/20 23:37 Urine Nitrite Negative (Negative) 12/10/20 23:37 Urine Bilirubin Negative (Negative) 12/10/20 23:37 Urine Urobilinogen <2.0 mg/dL (<2.0) 12/10/20 23:37 Ur Leukocyte Esterase Large (Negative) H 12/10/20 23:37 Urine RBC 2 /hpf (0-5) 12/10/20 23:37 Urine WBC 73 /hpf (0-5) H 12/10/20 23:37 Ur Squamous Epith Cells 28 /hpf (0-4) H 12/10/20 23:37 Urine Bacteria Few /hpf (None) H 12/10/20 23:37 Urine Mucus Rare /hpf (None) H 12/10/20 23:37 Urine HCG, Qual Not Detected (Not Detectd) 12/10/20 23:37 Urine Opiates Screen Not Detected (NotDetected) 12/10/20 23:37 Ur Oxycodone Screen Not Detected (NotDetected) 12/10/20 23:37 Urine Methadone Screen Not Detected (NotDetected) 12/10/20 23:37 Ur Propoxyphene Screen Not Detected (NotDetected) 12/10/20 23:37 Ur Barbiturates Screen Not Detected (NotDetected) 12/10/20 23:37 U Tricyclic Antidepress Not Detected (NotDetected) 12/10/20 23:37 Ur Phencyclidine Scrn Not Detected (NotDetected) 12/10/20 23:37 Ur Amphetamines Screen Detected (NotDetected) H 12/10/20 23:37 U Methamphetamines Scrn Detected (NotDetected) H 12/10/20 23:37 U Benzodiazepines Scrn Not Detected (NotDetected) 12/10/20 23:37 Urine Cocaine Screen Detected (NotDetected) H 12/10/20 23:37 U Marijuana (THC) Screen Not Detected (NotDetected) 12/10/20 23:37 Allergies Allergy/AdvReac Type Severity Reaction Status Date / Time haloperidol [From Haldol] Allergy Unknown Verified 12/11/20 03:47 haloperidol lactate Allergy Unknown Verified 12/11/20 03:47 [From Haldol] paliperidone [From Invega] Allergy Unknown Verified 12/11/20 03:47 Penicillins Allergy Unknown Verified 12/11/20 03:47 quetiapine fumarate Allergy Unknown Verified 12/11/20 03:47 [From Seroquel] zolpidem tartrate Allergy Unknown Verified 12/11/20 03:47 [From Ambien] Patient Condition at Discharge: Stable Plan - Discharge Summary Discharge Rx Participant: No New Discharge Prescriptions: New Nicotine 14Mg/24Hr Patch [Habitrol] 1 patch TRANSDERM DAILY 30 Days patch buPROPion XL [Wellbutrin XL] 300 mg PO DAILY 30 Days tab.er.24h Continue fluPHENAZine decanoate [Prolixin Decanoate] 12.5 mg IM Q14D #1 ml Discontinued Nicotine 14Mg/24Hr Patch [Habitrol] 1 patch TRANSDERM DAILY 30 Days patch buPROPion XL [Wellbutrin XL] 300 mg PO DAILY 30 Days tab.er.24h ALPRAZolam [Xanax] 1 mg PO BID PRN PRN Reason: Anxiety fluPHENAZine [Prolixin] 1 mg PO BID 14 Days tab Discharge Medication List fluPHENAZine decanoate [Prolixin Decanoate] 12.5 mg IM Q14D #1 ml 07/23/20 [Rx] Nicotine 14Mg/24Hr Patch [Habitrol] 1 patch TRANSDERM DAILY 30 Days patch 12/12/20 [Rx] buPROPion XL [Wellbutrin XL] 300 mg PO DAILY 30 Days tab.er.24h 12/12/20 [Rx] Follow up Appointment(s)/Referral(s): Jacob William MD [Primary Care Provider] - 1-2 days [facility] [NON-STAFF] - 12/12/20 2:00 pm (ACT Team at 1400hrs 12/12/20.) Patient Instructions/Handouts: How to Stop Smoking (DC), Mood Disorders (DC), Depression (DC), Schizoaffective Disorder (DC), Help Prevent Suicide (DC), Suicide Prevention (DC) Activity/Diet/Wound Care/Special Instructions: Activity and diet as tolerated. Avoid the use of street drugs and alcohol. Take all medications as prescribed. When you are in need of refills on your medications please contact your medical provider and/or outpatient psychiatrist to have this done. Please go to scheduled outpatient appointment for aftercare treatment. If symptoms return or become worse, call the crisis line at and/or go to the nearest emergency room for evaluation. Discharge Disposition: HOME SELF-CARE
--- NOTE | 2020-12-12 16:06 | CONS ---
CONSULTATION CHIEF COMPLAINT: Bipolar disorder, depression. HISTORY OF PRESENT ILLNESS: This is another admission for this 45-year-old white female who has a longstanding history of mental health issues. She apparently became upset and distraught and was brought to the emergency room and was admitted. REVIEW OF SYSTEMS: She denies any headaches, change in vision or hearing, chest pain, cough, shortness of breath, abdominal pain, nausea, vomiting, diarrhea, urinary complaints, etc. Past medical history, family history, personal and social histories are all otherwise detailed in her admitting summary or unremarkable otherwise. She is ALLERGIC TO PENICILLIN. She was just in the office recently and she was only taking Xanax 1 mg 3 times a day p.r.n., and vitamin D. PHYSICAL EXAMINATION: Blood pressure is 142/85 with a pulse of 69, respirations of 15. She is afebrile. In GENERAL, she appeared to be slightly overweight and in no acute distress. SKIN color is normal skin is warm, dry. HEAD, ears, eyes, nose, mouth and throat were normal. CHEST is clear. CARDIAC exam demonstrates sinus rhythm and no murmurs. ABDOMEN is soft and nontender without any visceromegaly or masses. It was protuberant. EXTREMITIES are normal. NEUROLOGICALLY: She was intact. She is admitted to the hospital with diagnoses: Bipolar disorder. RECOMMENDATIONS: None at this time. Thank you respectfully, BATOOL / NIDHI: [id number] /
[2020-12-12 16:34] LABS: Hemoglobin A1C 5.5 % (4.0-6.0)
== END 2020-12-12 14:16 | disposition home or self-care (01) | DRG 885 ==
LOC: EC 22:42 → 3MHU 12-11 02:07 → EEVIPCON 12-11 02:07 → 3MHU 12-11 12:51
PROVIDERS: ADMIT Psychiatry & Neurology Psychiatry; ATTEND Psychiatry & Neurology Psychiatry
DX: F25.0 Schizoaffective disorder, bipolar type (principal); R45.851 Suicidal ideations; F14.10 Cocaine abuse, uncomplicated; F15.10 Other stimulant abuse, uncomplicated; F90.9 Attention-deficit hyperactivity disorder, unspecified type; F17.210 Nicotine dependence, cigarettes, uncomplicated; F41.9 Anxiety disorder, unspecified; Z65.3 Problems related to other legal circumstances; Z79.899 Other long term (current) drug therapy; Z81.8 Family history of other mental and behavioral disorders; Z88.0 Allergy status to penicillin; Z88.8 Allergy status to other drugs, medicaments and biological substances
CPT/HCPCS: 80053; 80306; 81001; 81025; 82075; 83036; 84443; 85025; 99285

== ENCOUNTER → 2021-11-14 | Outpatient (CLI) | payer MEDICARE, OTHER ==
--- NOTE | 2021-11-14 15:30 | P.PN ---
Subjective DATE: 11/14/2021 FOLLOW UP VISIT. Patient with obstructive sleep apnea hypopnea syndrome return to sleep center for follow-up visit. Information from previous visit have been reviewed. Last time I saw patient 1 year ago, at that time she was recommended to get CPAP equipment and to suck treatment with CPAP. For different reason patient did not receive CPAP unit and CPAP supplies. Presently she continued to snore and has multiple awakenings from sleep, significant sleepiness during the day [place] Sleepiness Scale is 18. MEDICATIONS:1. Prolixin During physical exam: GENERAL: A pleasant patient without any distress. VITAL SIGNS: BP 117/86, HR 89[], RR 18, weight 206.8, temperature 97.5, oxygen saturation at room air 94 % . HEENT: PERRLA, EOMI.low position of soft palate. NECK: Supple. No JVD. LUNGS: Clear to percussion and to auscultation. Good air exchange. No wheezing or rhonchi. HEART: S1, S2 regular. ABDOMEN: Soft and nontender. Obese EXTREMITIES: No clubbing or cyanosis. SHELTER ADVOCATE: Awake, alert, and oriented x3. No focal deficit. Impressions: 1. Snoring. History of obstructive sleep apnea hypopnea syndrome diagnosed 2- 1/2 years ago. Patient continued to have multiple awakenings from sleep and sleepiness during the day. Obstructive sleep apnea-hypopnea syndrome. 2. Obesity. 3. History of ADHD. 4. History of epilepsy in childhood. 5. History of psychotic episode about 9 years ago. 6. History of restless leg symptoms. Plan: 1. Home sleep apnea test to confirm obstructive sleep apnea hypopnea syndrome. 2. CPAP titration for correction of respiratory abnormalities during sleep after obstructive sleep apnea confirmed. 3. Precautions related to driving. No driving if feel any sleepiness. 4. Sleep hygiene with regular time in bed for 7-05/17 hours 7. Losing weight Thank you very much for allowing me to participate in the management of your patient. Britton Tran MD, PhD, FAASM. Diplomat of [place] [employer], Sleep Medicine Board by [place] [employer] [facility] [place]
== END | disposition home or self-care (01) ==
LOC: SLEEP 14:40
PROVIDERS: ATTEND Internal Medicine
DX: G47.33 Obstructive sleep apnea (adult) (pediatric) (principal); R06.83 Snoring; E66.9 Obesity, unspecified; Z86.69 Personal history of other diseases of the nervous system and sense organs
CPT/HCPCS: 99212

== ENCOUNTER → 2022-03-06 | Outpatient (CLI) | payer MEDICARE, OTHER ==
--- NOTE | 2022-03-06 16:00 | P.PN ---
Subjective DATE: 03/06/2022 FOLLOW UP VISIT. Patient with obstructive sleep apnea hypopnea syndrome return to sleep center for follow-up visit. Recently patient had sleep study which documented obstructive sleep apnea hypopnea syndrome. Patient was initiated on PAP therapy and today is first visit after treatment was started. I discussed results of sleep studies with patient in details. Patient has extremely severe obstructive sleep apnea hypopnea syndrome. Patient was able to use PAP equipment only for a few nights. [place] sleepiness scale is significantly increased to 17. I checked information from PAP unit. PAP unit pressure 5-14, average 10.5 cm H2O. Usage is 13 % for more then 4 hours, average 3.75 hours per night. Leak is 12.4 l/m, which is in acceptable range. Apnea Hypopnea Index is 0.5, which is perfect. I discussed with the patient necessity to use CPAP treatment every night for the whole night, discussed risk of not treated severe obstructive sleep apnea hypopnea syndrome. During physical exam: GENERAL: A pleasant patient without any distress. VITAL SIGNS: BP 139/95, HR 110, RR 18 , weight 204.4, temperature 96.1, oxygen saturation at room air 97% . HEENT: PERRLA, EOMI.low position of soft palate, . NECK: Supple. No JVD. LUNGS: Clear to percussion and to auscultation. Good air exchange. No wheezing or rhonchi. HEART: S1, S2 regular. ABDOMEN: Soft and nontender. Slightly obese EXTREMITIES: No clubbing or cyanosis. GENERAL MILLING SUPERINTENDENT: Awake, alert, and oriented x3. No focal deficit. Impressions: 1. Obstructive sleep apnea-hypopnea syndrome. Patient demonstrated great compliance with treatment, benefiting from treatment. 2. Obesity. 3. History of ADHD. 4. History of epilepsy in childhood. 5. History of psychotic episode about 9 years ago. 6. History of restless leg symptoms. Plan: 1. Continue using PAP equipment every night for the whole night. Patient promised to follow recommendations 2. To change air filter at least 1-2 times per month. 3. PAP unit should stay lower then position of the head. 4. Advised patient to remove all remaining water from humidifier canister daily and make it dry after each usage. Refill canister with fresh distilled water before each usage. 5. Sleep hygiene with regular time in bed for at least 8 hours. 6. Precautions related to driving. No driving if feel any sleepiness. 7. I will maintain prescription for PAP supplies including mask, tube, filters. 8. Follow up visit in 2 months or earlier if patient has any problems. 9. Watching weight. Thank you very much for allowing me to participate in the management of your patient. Britton Tran MD, PhD, FAASM. Diplomat of [place] [employer], Sleep Medicine Board by [place] [employer] [facility]
== END ==
LOC: SLEEP 14:36
PROVIDERS: ATTEND Internal Medicine
DX: G47.33 Obstructive sleep apnea (adult) (pediatric) (principal); Z99.89 Dependence on other enabling machines and devices; E66.9 Obesity, unspecified; Z86.59 Personal history of other mental and behavioral disorders; Z86.69 Personal history of other diseases of the nervous system and sense organs; G25.81 Restless legs syndrome; F17.200 Nicotine dependence, unspecified, uncomplicated; Z88.0 Allergy status to penicillin; Z88.8 Allergy status to other drugs, medicaments and biological substances
CPT/HCPCS: 99212

== ENCOUNTER 2022-08-16 09:09 | Inpatient (IN) | payer MEDICARE, MEDICAID ==
--- NOTE | 2022-08-16 09:31 | ED ---
General Adult HPI - General Chief complaint: Psychiatric Symptoms Stated complaint: mental health Time Seen by Provider: 08/16/22 09:12 Source: patient, EMS, RN notes reviewed, old records reviewed Limitations: no limitations - History of Present Illness Initial comments: 47-year-old female with schizophrenia presents for evaluation of hallucination and suicidal ideation. Denies suicide attempt. Denies physical complaints. Patient requesting mental health evaluation. - Related Data Home Medications Medication Instructions Recorded Confirmed fluPHENAZine decanoate [Prolixin 50 mg IM Q14D 08/16/22 08/16/22 Decanoate] Allergies Allergy/AdvReac Type Severity Reaction Status Date / Time haloperidol [From Haldol] Allergy Unknown Verified 08/16/22 11:00 haloperidol lactate Allergy Unknown Verified 08/16/22 11:00 [From Haldol] paliperidone [From Invega] Allergy Unknown Verified 08/16/22 11:00 Penicillins Allergy Unknown Verified 08/16/22 11:00 quetiapine fumarate Allergy Unknown Verified 08/16/22 11:00 [From Seroquel] zolpidem tartrate Allergy Unknown Verified 08/16/22 11:00 [From Ambien] Review of Systems ROS Statement: Those systems with pertinent positive or pertinent negative responses have been documented in the HPI. ROS Other: All systems not noted in ROS Statement are negative. Past Medical History Past Medical History: No Reported History Additional Past Medical History / Comment(s): ADHD History of Any Multi-Drug Resistant Organisms: None Reported Past Surgical History: No Surgical Hx Reported Additional Past Surgical History / Comment(s): pt not answering questions well Past Anesthesia/Blood Transfusion Reactions: No Reported Reaction Past Psychological History: ADD/ADHD, Anxiety, Schizoaffective Disorder Smoking Status: Current every day smoker Past Alcohol Use History: Occasional Past Drug Use History: Marijuana - Past Family History Father Additional Family Medical History / Comment(s): Patient refuses to give any information on her family including her mother and father. General Exam General appearance: alert, in no apparent distress Head exam: Present: atraumatic, normocephalic Eye exam: Present: normal appearance, PERRL ENT exam: Present: normal exam Neck exam: Present: normal inspection Respiratory exam: Present: normal lung sounds bilaterally. Absent: respiratory distress, wheezes Cardiovascular Exam: Present: regular rate, normal rhythm GI/Abdominal exam: Present: soft. Absent: distended, tenderness Extremities exam: Present: normal inspection, normal capillary refill Neurological exam: Present: alert, oriented X3, CN II-XII intact. Absent: motor sensory deficit Psychiatric exam: Present: depressed, flat affect, suicidal ideation Skin exam: Present: warm, dry, intact Course Vital Signs 08/16/22 09:15 Temperature 98.3 F Pulse Rate 92 Respiratory 19 Rate Blood Pressure 136/100 O2 Sat by Pulse 98 Oximetry - Reevaluation(s) Reevaluation #1: 08/16/22 09:31 Clear for EPS Medical Decision Making - Medical Decision Making Was pt. sent in by a medical professional or institution (, PA, SEAFOOD FARMER, urgent care, hospital, or long-term...) When possible be specific @ -No Did you speak to anyone other than the patient for history (EMS, parent, family, police, friend...)? What history was obtained from this source @ -No Did you review nursing and triage notes (agree or disagree)? Why? @ -I reviewed and agree with nursing and triage notes Were old charts reviewed (outside hosp., previous admission, EMS record, old EKG, old radiological studies, urgent care reports/EKG's, long-term records)? Report findings @ -[Previous psychiatric admissions Differential Diagnosis (chest pain, altered mental status, abdominal pain women, abdominal pain men, vaginal bleeding, weakness, fever, dyspnea, syncope, headache, dizziness, GI bleed, back pain, seizure, CVA, palpatations, mental health, musculoskeletal)? @ -not applicable EKG interpreted by me (3pts min.). @ -As above X-rays interpreted by me (1pt min.). @ -None done CT interpreted by me (1pt min.). @ -None done U/S interpreted by me (1pt. min.). @ -None done What testing was considered but not performed or refused? (CT, X-rays, U/S, labs)? Why? @ -None What meds were considered but not given or refused? Why? @ -None Did you discuss the management of the patient with other professionals (professionals i.e. , PA, SEAFOOD FARMER, lab, RT, psych nurse, oncology social worker, carburetor mechanic, teacher, juvenile corrections officer, field nurse case manager)? Give summary @EPS nurse Was smoking cessation discussed for >3mins.? @ -No Was critical care preformed (if so, how long)? @ -No Were there social determinants of health that impacted care today? How? (Homelessness, low income, unemployed, alcoholism, drug addiction, transportation, low edu. Level, literacy, decrease access to med. care, usp, rehab)? @ -No Was there de-escalation of care discussed even if they declined (Discuss DNR or withdrawal of care, Hospice)? DNR status @ -No What co-morbidities impacted this encounter? (DM, HTN, Smoking, COPD, CAD, Cancer, CVA, ARF, Chemo, Hep., AIDS, mental health diagnosis, sleep apnea, morbid obesity)? @ Schizophrenia Was patient admitted / discharged? Hospital course, mention meds given and route, prescriptions, significant lab abnormalities, going to OR and other pertinent info. @ 47-year-old female presenting for mental health evaluation, suicidal ideation and hallucination. She was medically cleared and evaluated by EPS and felt to require inpatient psychiatric evaluation and treatment. She will be admitted to this institution. Undiagnosed new problem with uncertain prognosis? @ -No Drug Therapy requiring intensive monitoring for toxicity (Heparin, Nitro, Insulin, Cardizem)? @ -No Were any procedures done? @ -No Diagnosis/symptom? @ -Schizophrenia, suicidal ideation Acute, or Chronic, or Acute on Chronic? @ Acute Uncomplicated (without systemic symptoms) or Complicated (systemic symptoms)? @ Complicated Side effects of treatment? @ -No Exacerbation, Progression, or Severe Exacerbation? @ -No Poses a threat to life or bodily function? How? (Chest pain, [place], [place], pneumonia, PE, COPD, DKA, ARF, appy, cholecystitis, CVA, Diverticulitis, Homicidal, Suicidal, threat to staff... and all critical care pts) Yes, self-harm - Lab Data Lab Results 08/16/22 Range/Units 10:20 Urine Opiates Screen Not Detected (NotDetected) Ur Oxycodone Screen Not Detected (NotDetected) Urine Methadone Screen Not Detected (NotDetected) Ur Propoxyphene Screen Not Detected (NotDetected) Ur Barbiturates Screen Not Detected (NotDetected) U Tricyclic Antidepress Not Detected (NotDetected) Ur Phencyclidine Scrn Not Detected (NotDetected) Ur Amphetamines Screen Not Detected (NotDetected) U Methamphetamines Scrn Not Detected (NotDetected) U Benzodiazepines Scrn Not Detected (NotDetected) Urine Cocaine Screen Not Detected (NotDetected) U Marijuana (THC) Screen Not Detected (NotDetected) Disposition Clinical Impression: Suicidal ideation, Depression, Schizoaffective disorder Disposition: ADMITTED IP TO THIS [facility] Condition: Stable Is patient prescribed a controlled substance at d/c from ED?: No Referrals: Jacob William MD [Primary Care Provider] - 1-2 days Time of Disposition: 11:18
[2022-08-16 10:48] LABS: Amphetamine Screen,Urine Not Detected (NotDetected); Barbiturate Screen,Urine Not Detected (NotDetected); Benzodiazepines Screen,Urine Not Detected (NotDetected); Cocaine Screen,Urine Not Detected (NotDetected); Methadone Screen, Urine Not Detected (NotDetected); Opiate Screen,Urine Not Detected (NotDetected); Oxycodone Screen, Urine Not Detected (NotDetected); Phencyclidine Screen,Urine Not Detected (NotDetected); Tricyclic Antidepressant,Urine Not Detected (NotDetected); Urn Cannabinoid Scrn Not Detected (NotDetected)
[2022-08-16 11:35] LABS: Appearance,Urine Clear (Clear); Bilirubin,Urine Negative (Negative); Blood,Urine Negative (Negative); Color,Urine Light Yellow; Glucose,Urine (UA) Negative (Negative); Ketones,Urine Negative (Negative); Leukocyte Esterase,Urine Negative (Negative); Nitrite,Urine Negative (Negative); PH, Urine 6.5 (5.0-8.0); Protein,Urine Negative (Negative); Specific Gravity,Urine 1.006 (1.001-1.035); Urobilinogen,Urine <2.0 mg/dL (<2.0)
[2022-08-16 13:13] LABS: ALT 26 U/L (4-34); AST 24 U/L (14-36); African American GFR (CKD) >90 (>60 ml/min/1.73 sqM); Albumin 3.8 g/dL (3.5-5.0); Alkaline Phosphatase 73 U/L (38-126); Anion Gap 10 mmol/L; Blood Urea Nitrogen 9 mg/dL (7-17); Calcium 8.8 mg/dL (8.4-10.2); Carbon Dioxide 27 mmol/L (22-30); Chloride 102 mmol/L (98-107); Glucose 157 mg/dL (74-99); Non-African American GFR(CKD) >90 (>60 ml/min/1.73 sqM); Potassium 3.6 mmol/L (3.5-5.1); Sodium 139 mmol/L (137-145); Total Bilirubin 0.4 mg/dL (0.2-1.3); Total Protein 7.1 g/dL (6.3-8.2)
[2022-08-16] MEDS ORDERED: MAG HYDROX/AL HYDROX/SIMETH 30 ML CUP PO PRN (13:39)
[2022-08-16] MEDS ORDERED: MAGNESIUM HYDROXIDE 2,400 MG/10 ML CUP PO PRN (13:39)
[2022-08-16] MEDS ORDERED: ACETAMINOPHEN TAB 325 MG TAB PO PRN (13:39)
[2022-08-16] MEDS ORDERED: IBUPROFEN 600 MG TAB PO PRN (13:39)
[2022-08-16] MEDS ORDERED: LORazepam 2 MG/ML INJ IM PRN (13:48)
[2022-08-16] MEDS ORDERED: chlorproMAZINE 25 MG/ML 2 ML AMP IM PRN (13:49)
[2022-08-16] MEDS ORDERED: chlorproMAZINE 25 MG TAB PO PRN (13:49)
[2022-08-16] MEDS: LORazepam 1 MG TAB PO PRN (20:27)
[2022-08-17] MEDS: LORazepam 1 MG TAB PO PRN (02:34)
[2022-08-17 11:11] LABS: Basophils % (A) 0 %; Eosinophils # (A) 0.2 k/uL (0-0.7); Eosinophils % (A) 2 %; HCT 45.2 % (34.0-46.0); HGB 15.1 gm/dL (11.4-16.0); Lymphocytes # (A) 1.6 k/uL (1.0-4.8); Lymphocytes % (A) 18 %; MCH 28.7 pg (25.0-35.0); MCHC 33.4 g/dL (31.0-37.0); Monocytes # (A) 0.7 k/uL (0-1.0); Monocytes % (A) 8 %; Neutrophils # (A) 6.1 k/uL (1.3-7.7); Neutrophils % (A) 70 %; Platelet Count 321 k/uL (150-450); RBC 5.26 m/uL (3.80-5.40); RDW 13.8 % (11.5-15.5); WBC 8.7 k/uL (3.8-10.6)
[2022-08-17] MEDS ORDERED: risperiDONE 1 MG TAB PO SCH (21:00)
--- NOTE | 2022-08-17 22:14 | P.HP ---
Psychiatric H&P - . H&P Date: 08/17/22 History & Physical: IDENTIFYING DATA: Patient is a , unemployed, 47 yo female with a significant history of schizoaffective disorder, methamphetamine use disorder, who was admitted for depression and suicidal ideation. HPI: Patient presented to the hospital on 08/16/22. Per EPS assessment, "Pt is well known to this law writer. she has a hx of schizophrenia. she has been admitted too unit many times over the years. She states her aunt Nita who years ago has been talking to her lately telling her it was time for a change. She states she has never been so low in her life. It's time for her to go to [facility]. She has been living in [place] with a room mate. Pt has had many over the years. She has poor hygiene and her hair is dirty and odorous. Pt has LUCAS but does not use a CPAP. Otherwise she is compliant with her medications and therapy. Pt in the past has been isolating herself from her support systems. She used to fight and demand so much attention from them, they pulled away. She now has no support system other than her legal guardian." "Pt thinks it time for her to go to [facility]. Pt stats no plan other than Aunt Nita telling her to come with her." On my assessment, patient presents with disheveled appearance, odd affect and concrete thought process. Patient reports she called EMS because of worsening mood and auditory hallucinations. She believes she is currently at her "lowest", feels she is "at rock bottom". She is a fair historian. She has a long history of medication noncompliance. Her only psychiatric medication currently is Prolixin decanoate 50 mg IM every 2 weeks which she reports she has been taking "for a long time". Per EPS RN, patient's most recent Prolixin decanoate 50 mg IM was given 08/06/22 and next is due 08/20/22. Patient reports she hears auditory hallucinations. She reports her ex- is Adeel Beltre and it's his Aunt Nita whose been talking to her. She says are "you ready to start over, I would go to her house and regroup and get back together..." She reports she was contemplating suicide prior to admission, but currently she denies suicidal thoughts. She denies homicidal ideation, intent or plan. She denies any auditory or visual hallucinations. Patient denies any flight of ideas racing thoughts and increased in goal directed behavior. She has a history of drug use but reports she has been sober for several years. She denies any recent drug, alcohol or tobacco use. PAST PSYCHIATRIC HISTORY: Patient states that schizoaffective disorder, crack cocaine use disorder, and methamphetamine use disorder. Past patient psychiatric medications: Prolixin decanoate 50 mg IM q2 weeks, Wellbutrin XL, Abilify, Haldol, Invega, Seroquel, Risperdal/Risperdal Consta, Ambien, Xanax, Klonopin, Adderall Past patient previous psychiatric hospitalizations: This is her 8th admission to [facility] (?) in [place]. Patient psychiatric outpatient follow-up: [facility] Patient denies any history of suicide attempts in the past. PMH: Past Medical History: No Reported History Additional Past Medical History / Comment(s): ADHD History of Any Multi-Drug Resistant Organisms: None Reported Past Surgical History: No Surgical Hx Reported Additional Past Surgical History / Comment(s): pt not answering questions well Past Anesthesia/Blood Transfusion Reactions: No Reported Reaction Past Psychological History: ADD/ADHD, Anxiety, Schizoaffective Disorder Smoking Status: Current every day smoker Past Alcohol Use History: Occasional Past Drug Use History: Marijuana ALLERGIES: as per EMR CHEMICAL DEPENDENCY HISTORY: as per HPI FAMILY PSYCHIATRIC/SUBSTANCE USE HISTORY: Mother has been previously diagnosed schizophrenia, younger sister completed suicide, another sister with depression. SOCIAL HISTORY: Patient was born and raised in [place], [place]. The patient graduated high school. She is currently living in [place] with a roommate. She is . She has 2 adult children, a 22-year-old daughter and a 30-year-old son. She has been to assisted "a few" times. Per chart, the patient does have a history of a domestic violence charge, breaking and entering, contempt, filing a false police report, and assault and battery. MENTAL STATUS EXAM: General Appearance: Patient appears to be an obese female, +hirsutism, poor hygiene and grooming. Behavior: Patient is seated without any agitated behavior. Speech: Patient's speech is non-pressured. Mood/Affect: Patient reports their mood is "rock bottom", affect is odd with some lability. Suicidality/Homicidality: Patient denies having any homicidal ideation intent or plan. Denies any suicidal ideation, intent or plan currently but endorses command auditory hallucinations telling her to kill herself at admission. Perceptions: Patient denies any visual hallucinations, but she endorses any auditory hallucinations of "Aunt Nita". Though content/process: There is no evidence of any fixed delusional thought content, thought process is concrete Memory and concentration: AOX3, grossly intact for the purposes of this session. Can spell "WORLD" backwards. She can name 5 past [place] Presidents: Keith Hays Sr, Keith Jr, Lena Bush Judgment and insight: Poor STRENGTHS/WEAKNESSES: Strength is that patient is linked with mental health services and has stable disability income. Weakness is that patient chronic mental illness and history of noncompliance. INTELLECT: Estimated as slightly below average. IMPRESSIONS: Schizoaffective disorder, bipolar type Methamphetamine use disorder, in remission Cocaine (crack) use disorder, in remission PLAN: -Patient is admitted under voluntary status to [facility] for stabilization of psychiatric symptoms and safety. Patient has signed adult voluntary form and medication consent and is placed in patient's chart. -Medications: Continue Prolixin decanoate 50 mg IM q2 weeks. Per EPS RN, last dose was given 08/06/22 and next dose is due 08/20/22. Will start patient on Risperdal 1 mg QHS for psychosis and mood. Depending on patient's response to Risperdal consider if this patient would benefit from 2 Mayte (Prolixin dec and Risperidone CASAS). Benefits of 2 antipsychotics may outweigh risks for this patient. She is a poor candidate for Clozapine due to long history of noncompliance. -Ativan and Haldol PRN for agitation/aggression. -Patient was informed of the risks, benefits and side effects of the medication and patient verbally consented to taking the medications. Patient signed med consent form and was placed in chart. -Internal Medicine consult to perform medical evaluation and physical. -NRT - not needed since she is currently denying tobacco use. -SW on board for discharge planning. Encourage patient to participate in groups to work on coping skills. Allergies Allergy/AdvReac Type Severity Reaction Status Date / Time haloperidol [From Haldol] Allergy Unknown Verified 08/16/22 14:30 haloperidol lactate Allergy Unknown Verified 08/16/22 14:30 [From Haldol] paliperidone [From Invega] Allergy Unknown Verified 08/16/22 14:30 Penicillins Allergy Unknown Verified 08/16/22 14:30 quetiapine fumarate Allergy Unknown Verified 08/16/22 14:30 [From Seroquel] zolpidem tartrate Allergy Unknown Verified 08/16/22 14:30 [From Ambien] Vital Signs Temp 98.1 F 08/17/22 00:53 Pulse 100 08/17/22 00:53 Resp 17 08/17/22 00:53 BP 128/88 08/17/22 00:53 Pulse Ox 97 08/17/22 00:53 FiO2 Intake & Output 08/16/22 08/17/22 08/17/22 18:59 06:59 18:59 Weight 95.963 kg 96.2 kg Laboratory Last Values WBC 8.7 k/uL (3.8-10.6) 08/17/22 10:32 RBC 5.26 m/uL (3.80-5.40) 08/17/22 10:32 Hgb 15.1 gm/dL (11.4-16.0) 08/17/22 10:32 Hct 45.2 % (34.0-46.0) 08/17/22 10:32 MCV 86.0 fL (80.0-100.0) 08/17/22 10:32 MCH 28.7 pg (25.0-35.0) 08/17/22 10:32 MCHC 33.4 g/dL (31.0-37.0) 08/17/22 10:32 RDW 13.8 % (11.5-15.5) 08/17/22 10:32 Plt Count 321 k/uL (150-450) 08/17/22 10:32 MPV 7.0 08/17/22 10:32 Neutrophils % 70 % 08/17/22 10:32 Lymphocytes % 18 % 08/17/22 10:32 Monocytes % 8 % 08/17/22 10:32 Eosinophils % 2 % 08/17/22 10:32 Basophils % 0 % 08/17/22 10:32 Neutrophils # 6.1 k/uL (1.3-7.7) 08/17/22 10:32 Lymphocytes # 1.6 k/uL (1.0-4.8) 08/17/22 10:32 Monocytes # 0.7 k/uL (0-1.0) 08/17/22 10:32 Eosinophils # 0.2 k/uL (0-0.7) 08/17/22 10:32 Basophils # 0.0 k/uL (0-0.2) 08/17/22 10:32 Sodium 139 mmol/L (137-145) 08/16/22 12:43 Potassium 3.6 mmol/L (3.5-5.1) 08/16/22 12:43 Chloride 102 mmol/L (98-107) 08/16/22 12:43 Carbon Dioxide 27 mmol/L (22-30) 08/16/22 12:43 Anion Gap 10 mmol/L 08/16/22 12:43 BUN 9 mg/dL (7-17) 08/16/22 12:43 Creatinine 0.68 mg/dL (0.52-1.04) 08/16/22 12:43 Est GFR (CKD-EPI)AfAm >90 (>60 ml/min/1.73 sqM) 08/16/22 12:43 Est GFR (CKD-EPI)NonAf >90 (>60 ml/min/1.73 sqM) 08/16/22 12:43 Glucose 157 mg/dL (74-99) H 08/16/22 12:43 Calcium 8.8 mg/dL (8.4-10.2) 08/16/22 12:43 Total Bilirubin 0.4 mg/dL (0.2-1.3) 08/16/22 12:43 AST 24 U/L (14-36) 08/16/22 12:43 ALT 26 U/L (4-34) 08/16/22 12:43 Alkaline Phosphatase 73 U/L (38-126) 08/16/22 12:43 Total Protein 7.1 g/dL (6.3-8.2) 08/16/22 12:43 Albumin 3.8 g/dL (3.5-5.0) 08/16/22 12:43 Urine Color Light Yellow 08/16/22 10:20 Urine Appearance Clear (Clear) 08/16/22 10:20 Urine pH 6.5 (5.0-8.0) 08/16/22 10:20 Ur Specific [place] 1.006 (1.001-1.035) 08/16/22 10:20 Urine Protein Negative (Negative) 08/16/22 10:20 Urine Glucose (UA) Negative (Negative) 08/16/22 10:20 Urine Ketones Negative (Negative) 08/16/22 10:20 Urine Blood Negative (Negative) 08/16/22 10:20 Urine Nitrite Negative (Negative) 08/16/22 10:20 Urine Bilirubin Negative (Negative) 08/16/22 10:20 Urine Urobilinogen <2.0 mg/dL (<2.0) 08/16/22 10:20 Ur Leukocyte Esterase Negative (Negative) 08/16/22 10:20 Urine Opiates Screen Not Detected (NotDetected) 08/16/22 10:20 Ur Oxycodone Screen Not Detected (NotDetected) 08/16/22 10:20 Urine Methadone Screen Not Detected (NotDetected) 08/16/22 10:20 Ur Propoxyphene Screen Not Detected (NotDetected) 08/16/22 10:20 Ur Barbiturates Screen Not Detected (NotDetected) 08/16/22 10:20 U Tricyclic Antidepress Not Detected (NotDetected) 08/16/22 10:20 Ur Phencyclidine Scrn Not Detected (NotDetected) 08/16/22 10:20 Ur Amphetamines Screen Not Detected (NotDetected) 08/16/22 10:20 U Methamphetamines Scrn Not Detected (NotDetected) 08/16/22 10:20 U Benzodiazepines Scrn Not Detected (NotDetected) 08/16/22 10:20 Urine Cocaine Screen Not Detected (NotDetected) 08/16/22 10:20 U Marijuana (THC) Screen Not Detected (NotDetected) 08/16/22 10:20 Coronavirus (PCR) Not Detected (Not Detectd) 08/16/22 11:23 08/17/22 16:40 08/17/22 17:41 08/17/22 17:48 08/17/22 18:17 08/17/22 21:48
[2022-08-17 23:25] LABS: Chol/HDL Ratio 5.55 Ratio; LDL Cholesterol,Calculated 135.7 mg/dL (0.0-131.0)
[2022-08-18 04:56] VITALS: RESP 18
[2022-08-18] MEDS: NICOTINE 14MG/24HR PATCH TRANSDERM SCH (09:38)
--- NOTE | 2022-08-18 13:17 | P.PN ---
Progress Note - Text Progress Note Date: 08/18/22 Interval History: Patient was seen wandering the hallways and was directable and agreeable to speak with freelance writer in the office. Currently, the patient reports that she has been experiencing auditory hallucinations. She states that she hears a woman's voice that is often telling her to do things. However she denies any suicidal commands or homicidal commands. She states that these auditory hallucinations have been bothering her and makes her anxious and upset. She reports no suicidal or homicidal ideation, intention, and/or plan today. The patient maintains that she has been sober and has been off any sort of illicit substances for the past 3 months. She is currently not reporting any suicidal or homicidal ideation, intention, and/or plan. She is not reporting any paranoia or other delusions. The patient has been receiving Prolixin Decanoate 50 mg every 2 weeks with her next dose due on 08/20/2022. She reports no issues regarding her sleep or her appetite. She does report that she feels extremely cold. She is agreeable to having her thyroid checked. Mental Status Exam: General Appearance: Patient appears to be stated age is alert, directable, and cooperative. Disheveled appearance. Obese body habitus. Sialorrhea. Behavior: Patient is calmly seated without any agitated behavior. Speech: Patient's speech is fluent and nonpressured. Mood/Affect: Mood is "doing okay", affect is blunted. Suicidality/Homicidality: Patient denies having any suicidal or homicidal ideation intent or plan. Perceptions: Patient denies any visual hallucinations but endorses auditory hallucinations. Though content/process: There is no evidence of any delusional thought content and thought process is linear and goal-directed. Memory and concentration: AOX3, grossly intact for the purposes of this session Judgment and insight: Improving mildly Vital Signs Temp 97.8 F 08/18/22 04:55 Pulse 99 08/18/22 09:28 Resp 18 08/18/22 04:55 BP 112/75 08/18/22 09:28 Pulse Ox 96 08/18/22 04:55 FiO2 Intake & Output 08/17/22 08/18/22 08/18/22 18:59 06:59 18:59 Weight 96.2 kg Laboratory Results - Last 24 Hours 08/17/22 08/17/22 10:32 10:[address] Glu mg/dL 120 Hemoglobin A1c 5.8 Triglycerides 170.00 H Cholesterol 207.00 H LDL Cholesterol, Calc 135.7 H VLDL Cholesterol, Calc 34.00 HDL Cholesterol 37.30 L Cholesterol/HDL Ratio 5.55 Assessment Schizoaffective disorder, bipolar type Methamphetamine use disorder, in remission Cocaine (crack) use disorder, in remission Plan: -Patient continues to meet criteria for inpatient psychiatric admission for symptom stabilization and safety. Patient has signed adult voluntary form and medication consent and was placed in patient's chart. -Medications: Prolixin decanoate 50 mg IM every 2 weeks. Next dose due on 08/20/2022 Increase Risperdal to 1 mg by mouth twice a day for psychosis. 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 - Consider Clozaril the patient is a poor candidate due to her history of noncompliance with treatment.- -When necessary Ativan and Haldol for agitation/aggression. -SW on board for discharge planning. Encouraged the patient to participate in milieu.
[2022-08-18] MEDS: risperiDONE 1 MG TAB PO SCH (21:09)
--- NOTE | 2022-08-19 02:35 | CONS ---
CONSULTATION CHIEF COMPLAINT: Acute psychosis. HISTORY OF PRESENT ILLNESS: This is another admission for this 47-year-old schizophrenic. She apparently became very agitated, confused, psychotic and paranoid. She cannot give a history that is reliable. Past medical history, family history and personal and social history reveal that she is allergic to statins and penicillin. When she was last seen in June, she was on no medications. I am sure that she is supposed to be. REVIEW OF SYSTEMS: She denies any headaches, change in vision or hearing, chest pain, shortness of breath, abdominal pain, nausea, vomiting, diarrhea, etc. Past medical history, family history and personal and social histories are unremarkable except that she is an everyday heavy smoker. PHYSICAL EXAMINATION: VITAL SIGNS: Blood pressure 124/72 with a pulse of 105, respirations 14, and she is afebrile. GENERAL: She appeared to be overweight and agitated. HEENT: Head, ears, eyes, nose, mouth and throat were essentially normal. There are no masses. CHEST: Clear. CARDIAC: Normal. ABDOMEN: Protuberant, soft. EXTREMITIES: Normal. NEUROLOGICAL: She is intact, but very psychotic, agitated and paranoid. DIAGNOSES: She is admitted to the hospital with diagnoses, 1. Acute psychosis. 2. Paranoid schizophrenia. RECOMMENDATIONS: None. MMODL / IJN: [id number] /
[2022-08-19 06:50] VITALS: TEMP 98.7
[2022-08-19] MEDS: risperiDONE 1 MG TAB PO SCH ×2 (08:27→21:21)
[2022-08-19] MEDS: NICOTINE 14MG/24HR PATCH TRANSDERM SCH (08:27)
[2022-08-19] MEDS ORDERED: fluPHENAZine DECANOATE 25 MG/ML 5ML MDV IM ONE (11:00)
--- NOTE | 2022-08-19 12:12 | P.PN ---
Progress Note - Text Progress Note Date: 08/19/22 Interval History: Patient was seen wandering the hallways and was directable and agreeable to speak with loan underwriter in the office. Currently, the patient is reporting that she is feeling significantly better. She states that she is not experiencing any auditory or visual hallucinations today. She is denying any paranoia or other delusions. She is not reporting any suicidal or homicidal ideation, intention, and/or plan. She has been adherent with her medications and reports "feeling tired" as a side effect. She otherwise denies any chest pain, shortness of breath, palpitations, constipation, diarrhea, or involuntary muscle movements. She reports no issues regarding her sleep or her appetite. Mental Status Exam: General Appearance: Patient appears to be stated age is alert, directable, and cooperative. Improved hygiene and grooming today. Behavior: Patient is calmly seated without any agitated behavior. Eye contact is appropriate. Speech: Patient's speech is fluent and nonpressured. Mood/Affect: Mood is "doing okay", affect is constricted. More range today. Bright. Suicidality/Homicidality: Patient denies having any suicidal or homicidal ideation intent or plan. Perceptions: Patient denies any auditory or visual hallucinations. Though content/process: There is no evidence of any delusional thought content and thought process is linear and goal-directed. Memory and concentration: AOX3, grossly intact for the purposes of this session Judgment and insight: Improving mildly Vital Signs Temp 98.7 F 08/19/22 06:49 Pulse 85 08/19/22 08:29 Resp 18 08/19/22 06:49 BP 129/67 08/19/22 08:29 Pulse Ox 97 08/19/22 06:49 FiO2 Laboratory Results WBC 8.7 k/uL (3.8-10.6) 08/17/22 10:32 RBC 5.26 m/uL (3.80-5.40) 08/17/22 10:32 Hgb 15.1 gm/dL (11.4-16.0) 08/17/22 10:32 Hct 45.2 % (34.0-46.0) 08/17/22 10:32 MCV 86.0 fL (80.0-100.0) 08/17/22 10:32 MCH 28.7 pg (25.0-35.0) 08/17/22 10:32 MCHC 33.4 g/dL (31.0-37.0) 08/17/22 10:32 RDW 13.8 % (11.5-15.5) 08/17/22 10:32 Plt Count 321 k/uL (150-450) 08/17/22 10:32 MPV 7.0 08/17/22 10:32 Neutrophils % 70 % 08/17/22 10:32 Lymphocytes % 18 % 08/17/22 10:32 Monocytes % 8 % 08/17/22 10:32 Eosinophils % 2 % 08/17/22 10:32 Basophils % 0 % 08/17/22 10:32 Neutrophils # 6.1 k/uL (1.3-7.7) 08/17/22 10:32 Lymphocytes # 1.6 k/uL (1.0-4.8) 08/17/22 10:32 Monocytes # 0.7 k/uL (0-1.0) 08/17/22 10:32 Eosinophils # 0.2 k/uL (0-0.7) 08/17/22 10:32 Basophils # 0.0 k/uL (0-0.2) 08/17/22 10:32 Sodium 139 mmol/L (137-145) 08/16/22 12:43 Potassium 3.6 mmol/L (3.5-5.1) 08/16/22 12:43 Chloride 102 mmol/L (98-107) 08/16/22 12:43 Carbon Dioxide 27 mmol/L (22-30) 08/16/22 12:43 Anion Gap 10 mmol/L 08/16/22 12:43 BUN 9 mg/dL (7-17) 08/16/22 12:43 Creatinine 0.68 mg/dL (0.52-1.04) 08/16/22 12:43 Est GFR (CKD-EPI)AfAm >90 (>60 ml/min/1.73 sqM) 08/16/22 12:43 Est GFR (CKD-EPI)NonAf >90 (>60 ml/min/1.73 sqM) 08/16/22 12:43 Glucose 157 mg/dL (74-99) H 08/16/22 12:[address] Glu mg/dL 120 08/17/22 10:32 Hemoglobin A1c 5.8 % (0.0-6.0) 08/17/22 10:32 Calcium 8.8 mg/dL (8.4-10.2) 08/16/22 12:43 Total Bilirubin 0.4 mg/dL (0.2-1.3) 08/16/22 12:43 AST 24 U/L (14-36) 08/16/22 12:43 ALT 26 U/L (4-34) 08/16/22 12:43 Alkaline Phosphatase 73 U/L (38-126) 08/16/22 12:43 Total Protein 7.1 g/dL (6.3-8.2) 08/16/22 12:43 Albumin 3.8 g/dL (3.5-5.0) 08/16/22 12:43 Triglycerides 170.00 mg/dL (0.00-149.00) H 08/17/22 10:32 Cholesterol 207.00 mg/dL (0.00-200.00) H 08/17/22 10:32 LDL Cholesterol, Calc 135.7 mg/dL (0.0-131.0) H 08/17/22 10:32 VLDL Cholesterol, Calc 34.00 mg/dL (5.00-40.00) 08/17/22 10:32 HDL Cholesterol 37.30 mg/dL (40.00-60.00) L 08/17/22 10:32 Cholesterol/HDL Ratio 5.55 Ratio 08/17/22 10:32 TSH 2.010 mIU/L (0.465-4.680) 08/18/22 13:24 Urine Color Light Yellow 08/16/22 10:20 Urine Appearance Clear (Clear) 08/16/22 10:20 Urine pH 6.5 (5.0-8.0) 08/16/22 10:20 Ur Specific Stanley 1.006 (1.001-1.035) 08/16/22 10:20 Urine Protein Negative (Negative) 08/16/22 10:20 Urine Glucose (UA) Negative (Negative) 08/16/22 10:20 Urine Ketones Negative (Negative) 08/16/22 10:20 Urine Blood Negative (Negative) 08/16/22 10:20 Urine Nitrite Negative (Negative) 08/16/22 10:20 Urine Bilirubin Negative (Negative) 08/16/22 10:20 Urine Urobilinogen <2.0 mg/dL (<2.0) 08/16/22 10:20 Ur Leukocyte Esterase Negative (Negative) 08/16/22 10:20 Urine Opiates Screen Not Detected (NotDetected) 08/16/22 10:20 Ur Oxycodone Screen Not Detected (NotDetected) 08/16/22 10:20 Urine Methadone Screen Not Detected (NotDetected) 08/16/22 10:20 Ur Propoxyphene Screen Not Detected (NotDetected) 08/16/22 10:20 Ur Barbiturates Screen Not Detected (NotDetected) 08/16/22 10:20 U Tricyclic Antidepress Not Detected (NotDetected) 08/16/22 10:20 Ur Phencyclidine Scrn Not Detected (NotDetected) 08/16/22 10:20 Ur Amphetamines Screen Not Detected (NotDetected) 08/16/22 10:20 U Methamphetamines Scrn Not Detected (NotDetected) 08/16/22 10:20 U Benzodiazepines Scrn Not Detected (NotDetected) 08/16/22 10:20 Urine Cocaine Screen Not Detected (NotDetected) 08/16/22 10:20 U Marijuana (THC) Screen Not Detected (NotDetected) 08/16/22 10:20 Coronavirus (PCR) Not Detected (Not Detectd) 08/16/22 11:23 Assessment Schizoaffective disorder, bipolar type Methamphetamine use disorder, in remission Cocaine (crack) use disorder, in remission Plan: -Patient continues to meet criteria for inpatient psychiatric admission for symptom stabilization and safety. Patient has signed adult voluntary form and medication consent and was placed in patient's chart. -Medications: Administer Prolixin decanoate 50 mg IM today. Next due on 09/02/2022. Continue Risperdal 1 mg by mouth twice a day for psychosis. We will likely taper Risperdal prior to discharge as the patient is already on Prolixin Decanoate. -When necessary Ativan and Haldol for agitation/aggression. -SW on board for discharge planning. Encouraged the patient to participate in milieu.
[2022-08-19 15:21] VITALS: PULSE 106
[2022-08-19 16:34] VITALS: BP 119/62
[2022-08-20] MEDS: NICOTINE 14MG/24HR PATCH TRANSDERM SCH (09:24)
[2022-08-20] MEDS: risperiDONE 1 MG TAB PO SCH (09:24)
--- NOTE | 2022-08-20 13:11 | P.DS ---
Providers Date of admission: 08/16/22 13:24 Expected date of discharge: 08/20/22 Attending physician: Dedrick Buckley MD Consults: 08/16/22 13:39 Consult Physician Routine Consulting Provider: Jacob William Consult Reason/Comments: medical management Do you want consulting provider notified?: Yes, Notify in am Primary care physician: Jacob William - Discharge Diagnosis(es) (1) Schizoaffective disorder, bipolar type Current Visit: Yes Status: Acute Priority: High (2) Methamphetamine abuse in remission Current Visit: No Status: Resolved Priority: Low (3) Cocaine use, unspecified, in remission Current Visit: No Status: Resolved Priority: Low Hospital Course: Admission HPI: Initial psychiatric evaluation was completed by Dr. Hu on 08/16/2022 who wrote: "Patient is a , unemployed, 47 yo female with a significant history of schizoaffective disorder, methamphetamine use disorder, who was admitted for depression and suicidal ideation. HPI: Patient presented to the hospital on 08/16/22. Per EPS assessment, "Pt is well known to this administrative underwriter. she has a hx of schizophrenia. she has been admitted too unit many times over the years. She states her aunt Nita who years ago has been talking to her lately telling her it was time for a change. She states she has never been so low in her life. It's time for her to go to [facility]. She has been living in [place] with a room mate. Pt has had many over the years. She has poor hygiene and her hair is dirty and odorous. Pt has LUCAS but does not use a CPAP. Otherwise she is compliant with her medications and therapy. Pt in the past has been isolating herself from her support systems. She used to fight and demand so much attention from them, they pulled away. She now has no support system other than her legal guardian." "Pt thinks it time for her to go to [facility]. Pt stats no plan other than Aunt Nita telling her to come with her." On my assessment, patient presents with disheveled appearance, odd affect and concrete thought process. Patient reports she called EMS because of worsening mood and auditory hallucinations. She believes she is currently at her "lowest", feels she is "at rock bottom". She is a fair historian. She has a long history of medication noncompliance. Her only psychiatric medication currently is Prolixin decanoate 50 mg IM every 2 weeks which she reports she has been taking "for a long time". Per EPS RN, patient's most recent Prolixin decanoate 50 mg IM was given 08/06/22 and next is due 08/20/22. Patient reports she hears auditory hallucinations. She reports her ex- is Adeel Beltre and it's his Aunt Nita whose been talking to her. She says are "you ready to start over, I would go to her house and regroup and get back together..." She reports she was contemplating suicide prior to admission, but currently she denies suicidal thoughts. She denies homicidal ideation, intent or plan. She denies any auditory or visual hallucinations. Patient denies any flight of ideas racing thoughts and increased in goal directed behavior. She has a history of drug use but reports she has been sober for several years. She denies any recent drug, alcohol or tobacco use. " Hospital course: Upon admission to the unit patient was initially endorsing command type auditory hallucinations and suicidal ideation. Patient was however directable and agreeable to commence treatment. Patient got along well with other patients on the unit and followed unit protocol. Patient was compliant with the medications and denied any side effects throughout hospital course. Patient was started on Risperdal in order to augment her treatment of Prolixin decanoate which she last received on 08/06/2022. Patient spoke of her stressors and engaged in therapy both group and individual. Patient was also seen by medical team for history and physical exam. With the addition of Risperdal, the patient displayed significant improvement in regards her target symptoms of psychosis. She was initially disheveled however began to take care of herself. The patient became much more linear and logical conversation and reported a significant decrease in the severity of her psychosis. She was agreeable to receiving the Prolixin Decanoate 50 mg IM on 08/19/2022 in anticipation for discharge today. On the day of discharge, the patient is not reporting any suicidal or homicidal ideation, intention, and/or plan. He is not reporting any access to firearms or other weapons. She reports no auditory or visual hallucinations today. She denies any paranoia or other delusions. She has been adherent with her medication and is not reporting any significant side effects. She reports no medical issues or concerns and denies any chest pain, shortness of breath, palpitations, akathisia, or involuntary muscle movements. She was counseled at length on the importance of medication adherence and appropriate outpatient follow-up. She does have a significant history of substance abuse and was counseled at great length on abstaining from all substances including alcohol, tobacco, marijuana, and illicit drugs such as methamphetamine and crack cocaine. As the patient no longer met criteria for continued inpatient psychiatric hospitalization, she was subsequently discharged. The patient will continue treatment with her ACT team. Mental status exam: General Appearance: Patient appears to be stated age is alert, pleasant, and cooperative. Patient is in no acute distress and has much improved hygiene and grooming Behavior: Patient is calmly seated without any agitated behavior. Speech: Patient's speech is fluent and nonpressured. Mood/Affect: Patient reports their mood is "much better", affect is congruent and euthymic to bright. Suicidality/Homicidality: Patient denies having any suicidal or homicidal ideation intent or plan. Perceptions: Patient denies any auditory or visual hallucinations. Though content/process: There is no evidence of any delusional thought content and thought process is linear and goal-directed. Patient is future oriented. Memory and concentration: AOX3, grossly intact for the purposes of this session. Can spell "WORLD" backwards correctly. Judgment and insight: Improved with guarded prognosis Impression: Schizoaffective disorder, bipolar type Methamphetamine use disorder, in remission Cocaine (crack) use disorder, in remission Plan: -Continue with discharge today as patient has improved and stabilized psychiatrically and is not currently an imminent threat to herself and/or others. She will remain at chronically elevated risk due to the severity of her mental illness. -Continue medications: Prolixin Decanoate 50 mg IM was administered on 08/19/2022. Next dose due on 09/02/2022. Continue Risperdal 1 mg by mouth twice a day for psychosis. - Patient is currently on dual antipsychotic treatment. Consider higher dose of Prolixin Decanoate upon next administration and likely tapering of Risperdal after. -Patient was counseled on the need for medication compliance and appropriate follow-up at mental health and also primary care for medical issues. Patient verbalized understanding and agreed. -Social work to arrange for and conduct family meeting to ensure safety upon discharge and answer any questions/concerns. Social work also to arrange for patients follow up appointments with [facility] for psychiatric care along with follow up with primary care provider. -Patient counseled on abstaining from recreational drugs and marijuana and alcohol. Was informed/educated on the adverse effects on their physical and mental health. Patient verbally agreed and understood. -Patient was instructed to return to the hospital or seek immediate medical care if their psychiatric or medical symptoms do worsen or reoccur. -Psychoeducation and supportive therapy provided to patient. Risks and benefits of pharmacological treatment versus the risks and benefits of nontreatment weight and discussed. Informed consent discussion held. Common side effects of psychotropics discussed such as, but not limited to headache, GI disturbance, sexual dysfunction, movement disorders, sedation, and orthostatic hypotension. Life threatening and blackbox warnings of prescribed medications also discussed. Potential risks of operating a vehicle or heavy machinery discussed with patient at length. Advised on importance of compliance and a reliable and respo nsible manner. Patient advised to review FDA consumer labeling of all medications prior to taking. Patient verbalized understanding of potential risks, and agrees with current treatment plan. Patient advised to medically contact physician/emergency personnel if any acute changes in condition occur. Vital Signs Temp 98.7 F 08/19/22 06:49 Pulse 106 H 08/19/22 15:20 Resp 18 08/19/22 15:20 BP 119/62 08/19/22 16:34 Pulse Ox 96 08/19/22 15:20 FiO2 Laboratory Results WBC 8.7 k/uL (3.8-10.6) 08/17/22 10:32 RBC 5.26 m/uL (3.80-5.40) 08/17/22 10:32 Hgb 15.1 gm/dL (11.4-16.0) 08/17/22 10:32 Hct 45.2 % (34.0-46.0) 08/17/22 10:32 MCV 86.0 fL (80.0-100.0) 08/17/22 10:32 MCH 28.7 pg (25.0-35.0) 08/17/22 10:32 MCHC 33.4 g/dL (31.0-37.0) 08/17/22 10:32 RDW 13.8 % (11.5-15.5) 08/17/22 10:32 Plt Count 321 k/uL (150-450) 08/17/22 10:32 MPV 7.0 08/17/22 10:32 Neutrophils % 70 % 08/17/22 10:32 Lymphocytes % 18 % 08/17/22 10:32 Monocytes % 8 % 08/17/22 10:32 Eosinophils % 2 % 08/17/22 10:32 Basophils % 0 % 08/17/22 10:32 Neutrophils # 6.1 k/uL (1.3-7.7) 08/17/22 10:32 Lymphocytes # 1.6 k/uL (1.0-4.8) 08/17/22 10:32 Monocytes # 0.7 k/uL (0-1.0) 08/17/22 10:32 Eosinophils # 0.2 k/uL (0-0.7) 08/17/22 10:32 Basophils # 0.0 k/uL (0-0.2) 08/17/22 10:32 Sodium 139 mmol/L (137-145) 08/16/22 12:43 Potassium 3.6 mmol/L (3.5-5.1) 08/16/22 12:43 Chloride 102 mmol/L (98-107) 08/16/22 12:43 Carbon Dioxide 27 mmol/L (22-30) 08/16/22 12:43 Anion Gap 10 mmol/L 08/16/22 12:43 BUN 9 mg/dL (7-17) 08/16/22 12:43 Creatinine 0.68 mg/dL (0.52-1.04) 08/16/22 12:43 Est GFR (CKD-EPI)AfAm >90 (>60 ml/min/1.73 sqM) 08/16/22 12:43 Est GFR (CKD-EPI)NonAf >90 (>60 ml/min/1.73 sqM) 08/16/22 12:43 Glucose 157 mg/dL (74-99) H 08/16/22 12:[address] Glu mg/dL 120 08/17/22 10:32 Hemoglobin A1c 5.8 % (0.0-6.0) 08/17/22 10:32 Calcium 8.8 mg/dL (8.4-10.2) 08/16/22 12:43 Total Bilirubin 0.4 mg/dL (0.2-1.3) 08/16/22 12:43 AST 24 U/L (14-36) 08/16/22 12:43 ALT 26 U/L (4-34) 08/16/22 12:43 Alkaline Phosphatase 73 U/L (38-126) 08/16/22 12:43 Total Protein 7.1 g/dL (6.3-8.2) 08/16/22 12:43 Albumin 3.8 g/dL (3.5-5.0) 08/16/22 12:43 Triglycerides 170.00 mg/dL (0.00-149.00) H 08/17/22 10:32 Cholesterol 207.00 mg/dL (0.00-200.00) H 08/17/22 10:32 LDL Cholesterol, Calc 135.7 mg/dL (0.0-131.0) H 08/17/22 10:32 VLDL Cholesterol, Calc 34.00 mg/dL (5.00-40.00) 08/17/22 10:32 HDL Cholesterol 37.30 mg/dL (40.00-60.00) L 08/17/22 10:32 Cholesterol/HDL Ratio 5.55 Ratio 08/17/22 10:32 TSH 2.010 mIU/L (0.465-4.680) 08/18/22 13:24 Urine Color Light Yellow 08/16/22 10:20 Urine Appearance Clear (Clear) 08/16/22 10:20 Urine pH 6.5 (5.0-8.0) 08/16/22 10:20 Ur Specific [place] 1.006 (1.001-1.035) 08/16/22 10:20 Urine Protein Negative (Negative) 08/16/22 10:20 Urine Glucose (UA) Negative (Negative) 08/16/22 10:20 Urine Ketones Negative (Negative) 08/16/22 10:20 Urine Blood Negative (Negative) 08/16/22 10:20 Urine Nitrite Negative (Negative) 08/16/22 10:20 Urine Bilirubin Negative (Negative) 08/16/22 10:20 Urine Urobilinogen <2.0 mg/dL (<2.0) 08/16/22 10:20 Ur Leukocyte Esterase Negative (Negative) 08/16/22 10:20 Urine Opiates Screen Not Detected (NotDetected) 08/16/22 10:20 Ur Oxycodone Screen Not Detected (NotDetected) 08/16/22 10:20 Urine Methadone Screen Not Detected (NotDetected) 08/16/22 10:20 Ur Propoxyphene Screen Not Detected (NotDetected) 08/16/22 10:20 Ur Barbiturates Screen Not Detected (NotDetected) 08/16/22 10:20 U Tricyclic Antidepress Not Detected (NotDetected) 08/16/22 10:20 Ur Phencyclidine Scrn Not Detected (NotDetected) 08/16/22 10:20 Ur Amphetamines Screen Not Detected (NotDetected) 08/16/22 10:20 U Methamphetamines Scrn Not Detected (NotDetected) 08/16/22 10:20 U Benzodiazepines Scrn Not Detected (NotDetected) 08/16/22 10:20 Urine Cocaine Screen Not Detected (NotDetected) 08/16/22 10:20 U Marijuana (THC) Screen Not Detected (NotDetected) 08/16/22 10:20 Coronavirus (PCR) Not Detected (Not Detectd) 08/16/22 11:23 Allergies Allergy/AdvReac Type Severity Reaction Status Date / Time haloperidol [From Haldol] Allergy Unknown Verified 08/16/22 14:30 haloperidol lactate Allergy Unknown Verified 08/16/22 14:30 [From Haldol] paliperidone [From Invega] Allergy Unknown Verified 08/16/22 14:30 Penicillins Allergy Unknown Verified 08/16/22 14:30 quetiapine fumarate Allergy Unknown Verified 08/16/22 14:30 [From Seroquel] zolpidem tartrate Allergy Unknown Verified 08/16/22 14:30 [From Ambien] Health Concerns: Please see your PCP r/t ruling out sleep apnea Patient Condition at Discharge: Stable Plan - Discharge Summary New Discharge Prescriptions: New Nicotine 14Mg/24Hr Patch [Habitrol] 1 patch TRANSDERM DAILY 30 Days #30 patch NS risperiDONE [RisperDAL] 1 mg PO BID 30 Days #60 tab Changed fluPHENAZine decanoate [Prolixin Decanoate] 50 mg IM Q14D #1 ml Discharge Medication List Nicotine 14Mg/24Hr Patch [Habitrol] 1 patch TRANSDERM DAILY 30 Days #30 patch NS 08/20/22 [Rx] fluPHENAZine decanoate [Prolixin Decanoate] 50 mg IM Q14D #1 ml 08/20/22 [Rx] risperiDONE [RisperDAL] 1 mg PO BID 30 Days #60 tab 08/20/22 [Rx] Follow up Appointment(s)/Referral(s): Jacob William MD [Primary Care Provider] - 1-2 days Gene Bates MD [REFERRING] - 08/21/22 2:00 pm Patient Instructions/Handouts: How to Stop Smoking (DC), Schizoaffective Disorder (DC) Activity/Diet/Wound Care/Special Instructions: Avoid the use of street drugs and alcohol. Take all prescriptions as prescribed. When you are in need of refills on your medications, please contact your medical provider and/or outpatient psychiatrist to have this done. Please go to scheduled outpatient appointment for aftercare treatment. If symptoms return or become worse, call the crisis line at and/or go to the nearest emergency room for evaluation Discharge Disposition: HOME SELF-CARE
== END 2022-08-20 13:30 | disposition home or self-care (01) | DRG 885 ==
LOC: EC 09:09 → 3MHU 13:24
PROVIDERS: ADMIT Psychiatry & Neurology Psychiatry; ATTEND Psychiatry & Neurology Psychiatry
DX: F25.0 Schizoaffective disorder, bipolar type (principal); R45.851 Suicidal ideations; Z68.41 Body mass index [BMI] 40.0-44.9, adult; F15.11 Other stimulant abuse, in remission; E66.9 Obesity, unspecified; F14.11 Cocaine abuse, in remission; Z20.822 Contact with and (suspected) exposure to COVID-19; G47.33 Obstructive sleep apnea (adult) (pediatric); F41.9 Anxiety disorder, unspecified; F90.9 Attention-deficit hyperactivity disorder, unspecified type; F91.3 Oppositional defiant disorder; K11.7 Disturbances of salivary secretion; L68.0 Hirsutism; F17.210 Nicotine dependence, cigarettes, uncomplicated; Z71.6 Tobacco abuse counseling; Z79.899 Other long term (current) drug therapy; Z56.0 Unemployment, unspecified; Z71.41 Alcohol abuse counseling and surveillance of alcoholic; Z71.51 Drug abuse counseling and surveillance of drug abuser; Z71.89 Other specified counseling; Z88.0 Allergy status to penicillin; Z88.8 Allergy status to other drugs, medicaments and biological substances; Z81.8 Family history of other mental and behavioral disorders
CPT/HCPCS: 36415; 80053; 80061; 80306; 81003; 82075; 83036; 84443; 85025; 87635; 99285

== ENCOUNTER 2023-04-15 21:23 | Inpatient (IN) | payer MEDICARE, MEDICAID ==
--- NOTE | 2023-04-15 22:36 | ED ---
Psych HPI - General Source: patient, police, RN notes reviewed Mode of arrival: ambulatory <Laura Bond - Last Filed: 04/15/23 22:35> <Angela Martinez - Last Filed: 04/16/23 02:28> <Jose Alejandro Bauer - Last Filed: 04/16/23 10:16> - General Chief Complaint: Psychiatric Symptoms Stated Complaint: Mental Health Time Seen by Provider: 04/15/23 22:35 - History of Present Illness Initial Comments: Patient is a 48-year-old female presented to ER with chief complaint of suicide ideation. Patient reports that she is sick of being lonely and living alone. Patient states she wants to use a knife to kill herself up. Patient denies any homicidal ideation. Patient denies any drug or alcohol use. Patient denies any other complaints at this time. (Laura Bond) Noelle is a 48-year-old female with a history of mental illness in the past she is prescribed Prolixin which she reports she's been compliant with. Patient comes ER today for suicidal ideations. Patient states she lives alone she doesn't have television or radio she sleeps all day because she so lonely and she no longer wants to live she wants to use a knife she kill her self. (Angela Martinez) - Related Data Previous Rx's Medication Instructions Recorded Nicotine 14Mg/24Hr Patch [Habitrol] 1 patch TRANSDERM DAILY 30 Days 08/20/22 #30 patch NS fluPHENAZine decanoate [Prolixin 50 mg IM Q14D #1 ml 08/20/22 Decanoate] risperiDONE [RisperDAL] 1 mg PO BID 30 Days #60 tab 08/20/22 Allergies Allergy/AdvReac Type Severity Reaction Status Date / Time haloperidol [From Haldol] Allergy Unknown Verified 04/15/23 22:28 haloperidol lactate Allergy Unknown Verified 04/15/23 22:28 [From Haldol] paliperidone [From Invega] Allergy Unknown Verified 04/15/23 22:28 Penicillins Allergy Unknown Verified 04/15/23 22:28 quetiapine fumarate Allergy Unknown Verified 04/15/23 22:28 [From Seroquel] zolpidem tartrate Allergy Unknown Verified 04/15/23 22:28 [From Ambien] Review of Systems ROS Other: All systems not noted in ROS Statement are negative. <Laura Bond - Last Filed: 04/15/23 22:35> ROS Other: All systems not noted in ROS Statement are negative. <Angela Martinez P - Last Filed: 04/16/23 02:28> ROS Other: All systems not noted in ROS Statement are negative. <Jose Alejandro Bauer D - Last Filed: 04/16/23 10:16> ROS Statement: Those systems with pertinent positive or pertinent negative responses have been documented in the HPI. Past Medical History Past Medical History: No Reported History Additional Past Medical History / Comment(s): ADHD History of Any Multi-Drug Resistant Organisms: None Reported Past Surgical History: No Surgical Hx Reported Additional Past Surgical History / Comment(s): pt not answering questions well Past Anesthesia/Blood Transfusion Reactions: No Reported Reaction Past Psychological History: ADD/ADHD, Anxiety, Schizoaffective Disorder Smoking Status: Current every day smoker - Past Family History Father Additional Family Medical History / Comment(s): Patient refuses to give any information on her family including her mother and father. <Laura Bond - Last Filed: 04/15/23 22:35> General Exam Limitations: no limitations General appearance: alert, in no apparent distress <Laura Bond - Last Filed: 04/15/23 22:35> Limitations: no limitations General appearance: alert, in no apparent distress Head exam: Present: atraumatic Eye exam: Present: normal appearance ENT exam: Present: normal exam Respiratory exam: Absent: respiratory distress Cardiovascular Exam: Present: regular rate GI/Abdominal exam: Absent: distended Rectal exam: Present: deferred Psychiatric exam: Present: depressed, suicidal ideation Skin exam: Present: warm, dry <Angela Martinez P - Last Filed: 04/16/23 02:28> Course Vital Signs 04/15/23 04/16/23 22:27 03:43 Temperature 98.5 F 98.1 F Pulse Rate 79 68 Respiratory 18 18 Rate Blood Pressure 123/86 128/84 O2 Sat by Pulse 96 96 Oximetry Medical Decision Making <Laura Bond - Last Filed: 04/15/23 22:35> - Lab Data Result diagrams: 04/16/23 03:14 04/16/23 03:14 <Jose Alejandro Bauer - Last Filed: 04/16/23 10:16> - Medical Decision Making I performed the quick note portion of the exam. Electronically signed by Laura Bond PA-C (Laura Bond) Patient's signed out to me by previous shift physician, Dr. Martinez. Briefly, patient is a 40-year-old female presents emergency department for auditory hallucinations. Plan is I was involved with pending EPS recommendations. EPS notified me at 10:10 AM that the recommendation was for discharge with outpatient management. Agreed this disposition plan. (Jose Alejandro Bauer) - Lab Data Lab Results 04/16/23 04/16/23 04/16/23 Range/Units 03:14 03:14 03:14 WBC 9.3 (3.8-10.6) k/uL RBC 5.46 H (3.80-5.40) m/uL Hgb 15.8 (11.4-16.0) gm/dL Hct 46.9 H (34.0-46.0) % MCV 86.0 (80.0-100.0) fL MCH 28.9 (25.0-35.0) pg MCHC 33.6 (31.0-37.0) g/dL RDW 14.3 (11.5-15.5) % Plt Count 314 (150-450) k/uL MPV 7.5 Neutrophils % 64 % Lymphocytes % 22 % Monocytes % 7 % Eosinophils % 5 % Basophils % 1 % Neutrophils # 5.9 (1.3-7.7) k/uL Lymphocytes # 2.0 (1.0-4.8) k/uL Monocytes # 0.6 (0-1.0) k/uL Eosinophils # 0.5 (0-0.7) k/uL Basophils # 0.1 (0-0.2) k/uL Sodium 139 (137-145) mmol/L Potassium 4.2 (3.5-5.1) mmol/L Chloride 104 (98-107) mmol/L Carbon Dioxide 24 (22-30) mmol/L Anion Gap 11 mmol/L BUN 12 (7-17) mg/dL Creatinine 0.66 (0.52-1.04) mg/dL Est GFR (CKD-EPI)AfAm >90 (>60 ml/min/1.73 sqM) Est GFR (CKD-EPI)NonAf >90 (>60 ml/min/1.73 sqM) Glucose 100 H (74-99) mg/dL Calcium 9.1 (8.4-10.2) mg/dL Total Bilirubin 0.5 (0.2-1.3) mg/dL AST 22 (14-36) U/L ALT 24 (4-34) U/L Alkaline Phosphatase 83 (38-126) U/L Total Protein 7.2 (6.3-8.2) g/dL Albumin 3.8 (3.5-5.0) g/dL Salicylates <1.0 mg/dL Acetaminophen <10.0 ug/mL Influenza Type A (PCR) Not Detected (Not Detectd) Influenza Type B (PCR) Not Detected (Not Detectd) RSV (PCR) Not Detected (Not Detectd) SARS-CoV-2 (PCR) Not Detected (Not Detectd) Disposition <Laura Bond - Last Filed: 04/15/23 22:35> <Angela Martinez - Last Filed: 04/16/23 02:28> Is patient prescribed a controlled substance at d/c from ED?: No <Jose Alejandro Bauer - Last Filed: 04/16/23 10:16> Clinical Impression: Hallucination Disposition: HOME SELF-CARE Condition: Good Instructions (If sedation given, give patient instructions): Hallucinations (ED) Referrals: Jacob William MD [Primary Care Provider] - 1-2 days
[2023-04-16 03:57] LABS: Basophils # (A) 0.1 k/uL (0-0.2); Basophils % (A) 1 %; Eosinophils # (A) 0.5 k/uL (0-0.7); Eosinophils % (A) 5 %; HCT 46.9 % (34.0-46.0); HGB 15.8 gm/dL (11.4-16.0); Lymphocytes % (A) 22 %; MCH 28.9 pg (25.0-35.0); MCHC 33.6 g/dL (31.0-37.0); Mean Platelet Volume 7.5; Monocytes # (A) 0.6 k/uL (0-1.0); Monocytes % (A) 7 %; Neutrophils # (A) 5.9 k/uL (1.3-7.7); Neutrophils % (A) 64 %; Platelet Count 314 k/uL (150-450); RBC 5.46 m/uL (3.80-5.40); RDW 14.3 % (11.5-15.5); WBC 9.3 k/uL (3.8-10.6)
[2023-04-16 04:27] LABS: ALT 24 U/L (4-34); AST 22 U/L (14-36); Acetaminophen <10.0 ug/mL; African American GFR (CKD) >90 (>60 ml/min/1.73 sqM); Albumin 3.8 g/dL (3.5-5.0); Alkaline Phosphatase 83 U/L (38-126); Anion Gap 11 mmol/L; Blood Urea Nitrogen 12 mg/dL (7-17); Calcium 9.1 mg/dL (8.4-10.2); Carbon Dioxide 24 mmol/L (22-30); Chloride 104 mmol/L (98-107); Glucose 100 mg/dL (74-99); Non-African American GFR(CKD) >90 (>60 ml/min/1.73 sqM); Potassium 4.2 mmol/L (3.5-5.1); Salicylate <1.0 mg/dL; Sodium 139 mmol/L (137-145); Total Bilirubin 0.5 mg/dL (0.2-1.3); Total Protein 7.2 g/dL (6.3-8.2)
[2023-04-16 10:55] LABS: Amphetamine Screen,Urine Not Detected (NotDetected); Barbiturate Screen,Urine Not Detected (NotDetected); Benzodiazepines Screen,Urine Not Detected (NotDetected); Cocaine Screen,Urine Detected (NotDetected); Methadone Screen, Urine Not Detected (NotDetected); Opiate Screen,Urine Not Detected (NotDetected); Oxycodone Screen, Urine Not Detected (NotDetected); Phencyclidine Screen,Urine Not Detected (NotDetected); Tricyclic Antidepressant,Urine Not Detected (NotDetected); Urn Cannabinoid Scrn Not Detected (NotDetected)
[2023-04-16] MEDS ORDERED: MAGNESIUM HYDROXIDE 2,400 MG/30 ML CUP PO PRN (14:48)
[2023-04-16] MEDS ORDERED: ACETAMINOPHEN TAB 325 MG TAB PO PRN (14:48)
[2023-04-16] MEDS ORDERED: MAG HYDROX/AL HYDROX/SIMETH 30 ML CUP PO PRN (14:48)
[2023-04-16] MEDS ORDERED: ZIPRASIDONE 20 MG CAP PO PRN (14:54)
[2023-04-16] MEDS ORDERED: LORazepam 2 MG/ML INJ IM PRN (14:54)
[2023-04-16] MEDS ORDERED: ZIPRASIDONE 20 MG VIAL IM PRN (14:54)
[2023-04-16 15:34] LABS: Appearance,Urine Clear (Clear); Bacteria,Urine Rare /hpf; Bilirubin,Urine Negative (Negative); Blood,Urine Negative (Negative); Color,Urine Yellow; Glucose,Urine (UA) Negative (Negative); Hyaline Casts,Urine 1 /lpf (0-2); Ketones,Urine Negative (Negative); Leukocyte Esterase,Urine Trace (Negative); Mucus,Urine Few /hpf; Nitrite,Urine Negative (Negative); PH, Urine 5.5 (5.0-8.0); Protein,Urine Negative (Negative); RBC,Urine 1 /hpf (0-5); Specific Gravity,Urine 1.015 (1.001-1.035); Squamous Epithelial Cell,Urine 3 /hpf (0-4); Urobilinogen,Urine <2.0 mg/dL (<2.0); WBC,Urine 5 /hpf (0-5)
[2023-04-16] MEDS: NICOTINE 14MG/24HR PATCH TRANSDERM SCH (17:02)
[2023-04-16] MEDS: ZINC OXIDE PASTE (Z-GUARD) 1 APPLIC TOPICAL SCH (20:30)
[2023-04-17] MEDS ORDERED: NICOTINE 14MG/24HR PATCH TRANSDERM SCH (09:00)
[2023-04-17] MEDS: NICOTINE 14MG/24HR PATCH TRANSDERM SCH (10:17)
[2023-04-17] MEDS: ZINC OXIDE PASTE (Z-GUARD) 1 APPLIC TOPICAL SCH ×2 (10:18→22:34)
--- NOTE | 2023-04-17 11:38 | P.HP ---
Psychiatric H&P - . H&P Date: 04/17/23 History & Physical: Allergies Allergy/AdvReac Type Severity Reaction Status Date / Time haloperidol [From Haldol] Allergy Unknown Verified 04/15/23 22:28 haloperidol lactate Allergy Unknown Verified 04/15/23 22:28 [From Haldol] paliperidone [From Invega] Allergy Unknown Verified 04/15/23 22:28 Penicillins Allergy Unknown Verified 04/15/23 22:28 quetiapine fumarate Allergy Unknown Verified 04/15/23 22:28 [From Seroquel] zolpidem tartrate Allergy Unknown Verified 04/15/23 22:28 [From Ambien] Vital Signs Temp 97.2 F L 04/17/23 09:33 Pulse 72 04/17/23 09:33 Resp 20 04/17/23 09:33 BP 120/62 04/17/23 09:33 Pulse Ox 97 04/16/23 10:39 FiO2 Intake & Output 04/16/23 04/17/23 04/17/23 18:59 06:59 18:59 Weight 90.265 kg Laboratory Last Values WBC 9.3 k/uL (3.8-10.6) 04/16/23 03:14 RBC 5.46 m/uL (3.80-5.40) H 04/16/23 03:14 Hgb 15.8 gm/dL (11.4-16.0) 04/16/23 03:14 Hct 46.9 % (34.0-46.0) H 04/16/23 03:14 MCV 86.0 fL (80.0-100.0) 04/16/23 03:14 MCH 28.9 pg (25.0-35.0) 04/16/23 03:14 MCHC 33.6 g/dL (31.0-37.0) 04/16/23 03:14 RDW 14.3 % (11.5-15.5) 04/16/23 03:14 Plt Count 314 k/uL (150-450) 04/16/23 03:14 MPV 7.5 04/16/23 03:14 Neutrophils % 64 % 04/16/23 03:14 Lymphocytes % 22 % 04/16/23 03:14 Monocytes % 7 % 04/16/23 03:14 Eosinophils % 5 % 04/16/23 03:14 Basophils % 1 % 04/16/23 03:14 Neutrophils # 5.9 k/uL (1.3-7.7) 04/16/23 03:14 Lymphocytes # 2.0 k/uL (1.0-4.8) 04/16/23 03:14 Monocytes # 0.6 k/uL (0-1.0) 04/16/23 03:14 Eosinophils # 0.5 k/uL (0-0.7) 04/16/23 03:14 Basophils # 0.1 k/uL (0-0.2) 04/16/23 03:14 Sodium 139 mmol/L (137-145) 04/16/23 03:14 Potassium 4.2 mmol/L (3.5-5.1) 04/16/23 03:14 Chloride 104 mmol/L (98-107) 04/16/23 03:14 Carbon Dioxide 24 mmol/L (22-30) 04/16/23 03:14 Anion Gap 11 mmol/L 04/16/23 03:14 BUN 12 mg/dL (7-17) 04/16/23 03:14 Creatinine 0.66 mg/dL (0.52-1.04) 04/16/23 03:14 Est GFR (CKD-EPI)AfAm >90 (>60 ml/min/1.73 sqM) 04/16/23 03:14 Est GFR (CKD-EPI)NonAf >90 (>60 ml/min/1.73 sqM) 04/16/23 03:14 Glucose 100 mg/dL (74-99) H 04/16/23 03:[address] Glu mg/dL 117 mg/dL 04/16/23 03:14 Hemoglobin A1c 5.7 % (<=6.0) 04/16/23 03:14 Calcium 9.1 mg/dL (8.4-10.2) 04/16/23 03:14 Total Bilirubin 0.5 mg/dL (0.2-1.3) 04/16/23 03:14 AST 22 U/L (14-36) 04/16/23 03:14 ALT 24 U/L (4-34) 04/16/23 03:14 Alkaline Phosphatase 83 U/L (38-126) 04/16/23 03:14 Total Protein 7.2 g/dL (6.3-8.2) 04/16/23 03:14 Albumin 3.8 g/dL (3.5-5.0) 04/16/23 03:14 TSH 2.260 mIU/L (0.465-4.680) 04/16/23 03:14 Urine Color Yellow 04/16/23 03:14 Urine Appearance Clear (Clear) 04/16/23 03:14 Urine pH 5.5 (5.0-8.0) 04/16/23 03:14 Ur Specific [place] 1.015 (1.001-1.035) 04/16/23 03:14 Urine Protein Negative (Negative) 04/16/23 03:14 Urine Glucose (UA) Negative (Negative) 04/16/23 03:14 Urine Ketones Negative (Negative) 04/16/23 03:14 Urine Blood Negative (Negative) 04/16/23 03:14 Urine Nitrite Negative (Negative) 04/16/23 03:14 Urine Bilirubin Negative (Negative) 04/16/23 03:14 Urine Urobilinogen <2.0 mg/dL (<2.0) 04/16/23 03:14 Ur Leukocyte Esterase Trace (Negative) H 04/16/23 03:14 Urine RBC 1 /hpf (0-5) 04/16/23 03:14 Urine WBC 5 /hpf (0-5) 04/16/23 03:14 Ur Squamous Epith Cells 3 /hpf (0-4) 04/16/23 03:14 Urine Bacteria Rare /hpf (None) H 04/16/23 03:14 Hyaline Casts 1 /lpf (0-2) 04/16/23 03:14 Urine Mucus Few /hpf (None) H 04/16/23 03:14 Salicylates <1.0 mg/dL 04/16/23 03:14 Urine Opiates Screen Not Detected (NotDetected) 04/16/23 03:14 Ur Oxycodone Screen Not Detected (NotDetected) 04/16/23 03:14 Urine Methadone Screen Not Detected (NotDetected) 04/16/23 03:14 Acetaminophen <10.0 ug/mL 04/16/23 03:14 Ur Barbiturates Screen Not Detected (NotDetected) 04/16/23 03:14 U Tricyclic Antidepress Not Detected (NotDetected) 04/16/23 03:14 Ur Phencyclidine Scrn Not Detected (NotDetected) 04/16/23 03:14 Ur Amphetamines Screen Not Detected (NotDetected) 04/16/23 03:14 U Methamphetamines Scrn Not Detected (NotDetected) 04/16/23 03:14 U Benzodiazepines Scrn Not Detected (NotDetected) 04/16/23 03:14 Urine Cocaine Screen Detected (NotDetected) H 04/16/23 03:14 U Marijuana (THC) Screen Not Detected (NotDetected) 04/16/23 03:14 Influenza Type A (PCR) Not Detected (Not Detectd) 04/16/23 03:14 Influenza Type B (PCR) Not Detected (Not Detectd) 04/16/23 03:14 RSV (PCR) Not Detected (Not Detectd) 04/16/23 03:14 SARS-CoV-2 (PCR) Not Detected (Not Detectd) 04/16/23 03:14 04/17/23 11:24 This is a psychiatric assessment on Noelle Wakefield who is a 48-year-old female with a diagnosis of schizoaffective disorder The patient is hospitalized after acknowledging suicidal ideations where she wanted to kill herself with a knife Patient reports that she does not want to be living alone She also reports that she does not have any other outlet where she has no TV or phone and feels very lonely and isolated She admits feeling helpless and hopeless Patient is currently not on any oral medications but gets Prolixin dec IM 50 mg every month for the next shot due on Patient is limited in her verbal output and does not give any details and keeps wanting to go to sleep Further information was obtained from the chart review which was provided from [facility] where her last assessment was from 02-09 through video conference patient at that time was also tested for drug screening and was positive for amphetamines and methamphetamine Patient at that time and reported that she had not used meth for about 2 weeks but was using crack cocaine Patient currently denies any substance use patient reports that she does hear voices but did not give any specifics that also is a history of some intermittent alcohol use chart also reveals multiple psychiatric hospitalizations in the past were several dates were mentioned that includes 08/18/2022, 12/11/2020, 08/20/2020, for 221, 02/11/2019. Past history personal and social history is significant for diagnoses of schizoaffective disorder amphetamine/cocaine use disorder alcohol use disorder According to chart patient is a mother of 17 years old daughter and a 25-year-old son with limited contact with her children Patient had reported no real contact with her family other than an aunt and a brother at that their relationship with others is conflictual Mental doses examination: Reveals a elderly female who looks much older for age Patient was laying in bed and wanted to be left alone and to sleep She however gave some answers intermittently Patient presents a disheveled appearance Behavior superficial and uncooperative patient seems to be wanting to sleep Speech was appropriate in tone although impoverished and limited Mood and affect is flat Suicidality/homicidality patient did not acknowledge or deny suicidal or homicidal ideations or plans Perceptions: Patient reports that she does hear voices but did not elaborate she denied any command hallucinations Patient's memory and concentration appears to be poor Formal and operational judgment and insight are impaired Unable to assess full cognitive examination due to limited mental status examination and patient's uncooperativeness Diagnostic impression: Adjustment disorder with mixed emotional features Schizoaffective disorder unspecified Methamphetamine and cocaine use disorder by history Rule out alcohol use disorder unspecified Plan: The patient will be hospitalized on the unit for further evaluation and treatment Therapy will be focused on providing supportive care Improving her coping abilities with a multimodal treatment He should also participate in OT RT PT and pharmacotherapy Approximately length of stay would be 5-12 days The patient is due for her Prolixin dec 50 mg IM on April 22 and an order has been entered for administration director of managed services is aware of the several previous long-term placements as requested by the patient and the repetition of her hospitalizations under similar circumstances We will further explore other possibilities for placement including other intervention through home health services and mental health center Continue supportive care and encourage the patient to participate in on the leija activities Hari Ramirez M.D.
[2023-04-18] MEDS: LORazepam 1 MG TAB PO PRN ×2 (00:45→23:47)
[2023-04-18] MEDS: NICOTINE 14MG/24HR PATCH TRANSDERM SCH ×2 (13:41→18:08)
[2023-04-18] MEDS: ZINC OXIDE PASTE (Z-GUARD) 1 APPLIC TOPICAL SCH ×2 (13:41→21:44)
[2023-04-19] MEDS: ZINC OXIDE PASTE (Z-GUARD) 1 APPLIC TOPICAL SCH ×2 (08:59→23:08)
[2023-04-19] MEDS: NICOTINE 14MG/24HR PATCH TRANSDERM SCH ×2 (10:24→18:40)
--- NOTE | 2023-04-19 18:57 | P.PN ---
Progress Note - Text Progress Note Date: 04/18/23 Interval history: Patient was seen asleep in her bed for most of the day, and was directable and agreeable to speak with headline writer. Thought process is concrete. She had reported anxiety and difficulty falling asleep last night and was given Ativan 1 mg po x 1. Her next Prolixin 25 mg IM injection is scheduled for 04/22/23. At this time, patient denies any suicidal or homicidal ideation, intent or plan. Denies any auditory or visual hallucinations. Patient denies any side effects from the medications and has been compliant with meds. Mental status exam: General Appearance: Patient appears to be stated age, obese female, mildly disheveled. Behavior: No agitated behavior. Patient is calm and directable. Speech: Patient's speech is fluent and non-pressured. Mood/Affect: Mood is calm, affect is congruent and constricted. Suicidality/Homicidality: Patient denies having any suicidal or homicidal ideation intent or plan. Perceptions: Patient denies any auditory or visual hallucinations. Though content/process: There is no evidence of any overt delusional thought content and thought process is concrete and simplistic. Memory and concentration: AOX3, grossly intact for the purposes of this session Judgment and insight: improving mildly Assessment/Plan: Continue with current diagnosis. Patient continues to meet criteria for inpatient psychiatric admission for symptom stabilization and safety. Patient will be maintained on current psychotropic medication regimen. Her next Prolixin 25 mg IM injection is scheduled for 04/22/23. Monitor for medication compliance and for any psychotropic medication side effects. Will continue to monitor ongoing response to treatment. Encouraged participation in milieu.
--- NOTE | 2023-04-19 19:00 | P.PN ---
Progress Note - Text Progress Note Date: 04/19/23 Interval history: Patient was seen isolating to her bed for most of the day again today, and was directable and agreeable to speak with justowriter operator. She reports overall good mood. Thought process is concrete. She had reported anxiety and difficulty falling asleep again last night and was given Ativan 1 mg po x 1. Today, she claims she needs Adderall to help her say awake and focused, however this will not be prescribed due to the risk of worsening psychosis. Her next Prolixin 25 mg IM injection is scheduled for 04/22/23. At this time, patient denies any suicidal or homicidal ideation, intent or plan. Denies any auditory or visual hallucinations. Patient denies any side effects from the medications and has been compliant with meds. Mental status exam: General Appearance: Patient appears to be stated age, obese female, mildly disheveled. Behavior: No agitated behavior. Patient is calm and directable, appears tired. Speech: Patient's speech is fluent and non-pressured. Mood/Affect: Mood is calm, affect is congruent and constricted. Suicidality/Homicidality: Patient denies having any suicidal or homicidal ideation intent or plan. Perceptions: Patient denies any auditory or visual hallucinations. Though content/process: There is no evidence of any overt delusional thought content and thought process is concrete and simplistic. Memory and concentration: AOX3, grossly intact for the purposes of this session Judgment and insight: Improving mildly Assessment/Plan: Continue with current diagnosis. Patient continues to meet criteria for inpatient psychiatric admission for symptom stabilization and safety. Patient will be maintained on current psychotropic medication regimen. Her next Prolixin 25 mg IM injection is scheduled for 04/22/23. Will not prescibe Adderall due to risk of dependence and psychosis. Monitor for medication compliance and for any psychotropic medication side effects. Will continue to monitor ongoing response to treatment. Encouraged participation in milieu.
[2023-04-20] MEDS: NICOTINE 14MG/24HR PATCH TRANSDERM SCH (09:36)
--- NOTE | 2023-04-20 11:58 | P.PN ---
Progress Note - Text Progress Note Date: 04/20/23 Interval history: Patient was seen in the hallway, and was directable and agreeable to speak with functional tester typewriters. She reports her mood is hopeless. Thought process is concrete. She has reported anxiety and difficulty falling asleep, however, she also stated that she is tired and sleeping all the time. She claims she needs Adderall, and that is the only medication she needs. Patient focused on getting Adderall, and becomes angry when functional tester typewriters told her she will not be prescribed it while in the hospital. Patient states she does not want to live alone, and would prefer to live in a penitentiary. Will coordinate with social work, [facility] and public guardian. Her next Prolixin 25 mg IM injection is scheduled for 04/22/23. Discussed adding welbutrin with the patient, and patient is agreeable to try it. At this time, patient denies any suicidal or homicidal ideation, intent or plan. Denies any auditory or visual hallucinations. Patient denies any side effects from the medications and has been compliant with meds. Mental status exam: General Appearance: Patient appears to be stated age, obese female, mildly disheveled. Behavior: No agitated behavior. Patient is calm and directable, Speech: Patient's speech is fluent and non-pressured. Mood/Affect: Mood is hopeless, affect is congruent and constricted. Suicidality/Homicidality: Patient denies having any suicidal or homicidal ideation intent or plan. Perceptions: Patient denies any auditory or visual hallucinations. Though content/process: There is no evidence of any overt delusional thought content and thought process is concrete Memory and concentration: AOX3, grossly intact for the purposes of this session Judgment and insight: chronically poor, Improving mildly Diagnostic impression: Adjustment disorder with mixed emotional features Schizoaffective disorder unspecified Methamphetamine and cocaine use disorder by history Rule out alcohol use disorder unspecified Assessment/Plan: Continue with current diagnosis. Patient continues to meet criteria for inpatient psychiatric admission for symptom stabilization and safety. Add Welbutrin XL 150mg qd for mood/anxiety. Her next Prolixin 50 mg IM injection is scheduled for 04/22/23. Will not prescribe Adderall due to risk of dependence and psychosis. Monitor for medication compliance and for any psychotropic medication side effects. Social work on board for discharge planning. Patient requesting placement in a penitentiary upon D/C. Will coordinate with [facility], SW, and guardian. Will continue to monitor ongoing response to treatment. Encouraged participation in milieu.
[2023-04-20] MEDS: ZINC OXIDE PASTE (Z-GUARD) 1 APPLIC TOPICAL SCH ×3 (12:19→21:00)
[2023-04-21] MEDS: ZINC OXIDE PASTE (Z-GUARD) 1 APPLIC TOPICAL SCH ×4 (08:47→20:57)
[2023-04-21] MEDS: buPROPion XL 150 MG TAB.ER.24H PO SCH ×2 (08:47→12:01)
[2023-04-21] MEDS: NICOTINE 14MG/24HR PATCH TRANSDERM SCH ×2 (08:50→12:02)
--- NOTE | 2023-04-21 12:04 | P.PN ---
Progress Note - Text Progress Note Date: 04/21/23 Interval history: Patient was seen in the hallway, and was directable and agreeable to speak with health underwriter. She reports her mood is "doing better" and that she no longer feels she wants to . Thought process continues to be concrete. Patient states that her Prolixin dose needs to be decreased, due to her "not doing crack anymore". Patients UDS was positive for cocaine. Traveling Construction Superintendent told patient that I would reach out to [facility] to see what they want her dose to be. Patient did ask health underwriter to make an exception for her to give her adderall, reiterated to patient that it will not be prescribed to her while on the unit. Her next Prolixin 25 mg IM injection is scheduled for 04/22/23. At this time, patient denies any suicidal or homicidal ideation, intent or plan. Denies any auditory or visual hallucinations. Patient denies any side effects from the medications and has been compliant with meds. Mental status exam: General Appearance: Patient appears to be stated age, obese female, mildly disheveled. Behavior: No agitated behavior. Patient is calm and directable, Speech: Patient's speech is fluent and non-pressured. Mood/Affect: Mood is better, affect is congruent and constricted. Suicidality/Homicidality: Patient denies having any suicidal or homicidal ideation intent or plan. Perceptions: Patient denies any auditory or visual hallucinations. Though content/process: There is no evidence of any overt delusional thought content and thought process is concrete Memory and concentration: AOX3, grossly intact for the purposes of this session Judgment and insight: chronically poor, Improving mildly Diagnostic impression: Adjustment disorder with mixed emotional features Schizoaffective disorder unspecified Methamphetamine and cocaine use disorder by history Rule out alcohol use disorder unspecified Assessment/Plan: Continue with current diagnosis. Patient continues to meet criteria for inpatient psychiatric admission for symptom stabilization and safety. Welbutrin XL 150mg qd for mood/anxiety. Her next Prolixin 50 mg IM injection is scheduled for 04/22/23. Will not prescribe Adderall due to risk of dependence and psychosis. Monitor for medication compliance and for any psychotropic medication side effects. Social work on board for discharge planning. Patient requesting placement in a long term upon D/C. Will coordinate with [facility], , and guardian to see if patient qualifies for long term. Will continue to monitor ongoing response to treatment. Encouraged participation in milieu.
[2023-04-21] MEDS: LORazepam 1 MG TAB PO PRN (21:45)
[2023-04-22] MEDS ORDERED: fluPHENAZine DECANOATE 25 MG/ML 5ML MDV IM SCH (10:00)
--- NOTE | 2023-04-22 12:35 | P.PN ---
Progress Note - Text Progress Note Date: 04/22/23 Interval history: Patient was seen in her room, and was agreeable to speak with policy writer sales at her be dside. She reports her mood is "good" and she states that she is no longer depressed or anxious. Patient expressed that she would like to be discharged, policy writer sales explained to her that she needed to get her injection, before that could happen. Told the patient it is possible that she could get discharged or Thursday. Tobacco Conditioner told the patient that [facility] said that she is ineligible for a detention, however, the ACT team will see her more frequently, and there is also a program through [facility] called the [facility], that the patient could attend during the day, to help her with her loneliness. continues to mainly isolate in her room. less focused on stimulants today. Her next Prolixin 25 mg IM injection is scheduled today. At this time, patient denies any suicidal or homicidal ideation, intent or plan. Denies any auditory or visual hallucinations. Patient denies any side effects from the medications and has been compliant with meds. Mental status exam: General Appearance: Patient appears to be stated age, obese female, mildly disheveled. Behavior: No agitated behavior. Patient is calm and directable, Speech: Patient's speech is fluent and non-pressured. Mood/Affect: Mood is better, affect is congruent and constricted. mildly improving Suicidality/Homicidality: Patient denies having any suicidal or homicidal ideation intent or plan. Perceptions: Patient denies any auditory or visual hallucinations. Though content/process: There is no evidence of any overt delusional thought content and thought process is concrete Memory and concentration: AOX3, grossly intact for the purposes of this session Judgment and insight: chronically poor, Improving mildly Diagnostic impression: Adjustment disorder with mixed emotional features Schizoaffective disorder unspecified Methamphetamine and cocaine use disorder by history Rule out alcohol use disorder unspecified Assessment/Plan: Continue with current diagnosis. Patient continues to meet criteria for inpatient psychiatric admission for symptom stabilization and safety. Medications: Welbutrin XL 150mg qd for mood/anxiety. Her next Prolixin 50 mg IM injection is scheduled today. Will not prescribe Adderall due to risk of dependence and psychosis. Monitor for medication compliance and for any psychotropic medication side effects. Social work on board for discharge planning. Will continue to monitor ongoing response to treatment. Encouraged participation in milieu. Possible discharge vs Thursday, if patient continues to psychiatrically improve. patient will not qualify for a roup home and will be set up again with act team for close follow-up and also would be able to be enrolled in [facility] for social interaction daily.
[2023-04-22] MEDS: ZINC OXIDE PASTE (Z-GUARD) 1 APPLIC TOPICAL SCH ×2 (13:10→21:06)
[2023-04-22] MEDS: NICOTINE 14MG/24HR PATCH TRANSDERM SCH (13:10)
[2023-04-22] MEDS: buPROPion XL 150 MG TAB.ER.24H PO SCH (13:10)
[2023-04-22] MEDS: NYSTATIN 100,000 UNIT/GM POWD 15 GM TOPICAL SCH ×2 (17:55→21:05)
[2023-04-22] MEDS: CLOTRIMAZOLE 1% CREAM 30 GM TUBE TOPICAL SCH (21:05)
--- NOTE | 2023-04-22 22:23 | PN ---
PROGRESS NOTE DATE OF SERVICE: 04/22/2023 CHIEF COMPLAINT: Intertrigo. HISTORY OF PRESENT ILLNESS: This lady is still having trouble with intertrigo and itching. PHYSICAL EXAMINATION: She does have an issue with intertrigo in the groin, axillary, and under the breast. IMPRESSION: Intertrigo. PLAN: Nystatin powder, ketoconazole cream. MMODL / IJN: [id number] /
[2023-04-22] MEDS: LORazepam 1 MG TAB PO PRN (23:46)
--- NOTE | 2023-04-23 01:32 | CONS ---
CONSULTATION CHIEF COMPLAINT: Acute psychosis. HISTORY OF PRESENT ILLNESS: This is another admission for this -ovyy-rak white female, who is schizophrenic. She apparently became psychotic and was having hallucinations when she was brought to the emergency room. REVIEW OF SYSTEMS: She denies headaches, chest pain, shortness of breath, abdominal pain, nausea, vomiting, etc. Past medical history, family history, personal and social histories reveal that she is allergic to statins and penicillin. She has been on fluphenazine injections from [facility]. Remainder of her history is unremarkable and noncontributory. She does smoke. PHYSICAL EXAMINATION: VITAL SIGNS: Normal. HEAD, EARS, EYES, NOSE, MOUTH, AND THROAT: Normal. CHEST: Clear. CARDIAC: Demonstrates sinus rhythm with no murmurs. ABDOMEN: Protuberant, soft and nontender. EXTREMITIES: Normal. She does have a problem with intertrigo. IMPRESSION: 1. Acute psychosis. 2. Schizophrenia. 3. Intertrigo. RECOMMENDATIONS: None at this time. I have ordered treatment for her intertrigo. Thank you respectfully, BATOOL / NIDHI: [id number] /
[2023-04-23 07:02] VITALS: RESP 18
[2023-04-23] MEDS: NICOTINE 14MG/24HR PATCH TRANSDERM SCH (08:37)
[2023-04-23] MEDS: buPROPion XL 150 MG TAB.ER.24H PO SCH (08:38)
[2023-04-23] MEDS: NYSTATIN 100,000 UNIT/GM POWD 15 GM TOPICAL SCH ×3 (08:42→21:00)
[2023-04-23] MEDS: CLOTRIMAZOLE 1% CREAM 30 GM TUBE TOPICAL SCH ×2 (08:42→21:00)
[2023-04-23] MEDS: ZINC OXIDE PASTE (Z-GUARD) 1 APPLIC TOPICAL SCH ×2 (08:44→21:00)
--- NOTE | 2023-04-23 09:51 | P.PN ---
Progress Note - Text Progress Note Date: 04/23/23 Interval history: Patient was seen in her room, and was agreeable to speak with marine underwriter at her b edside. She reports her mood is "ok" and she is focused on going home. Manager Support explained to patient she needs to be observed for one more day, due to her just getting her Prolixin yesterday, patient agreeable. Patient isolates in her room. Not focused on stimulants today. At this time, patient denies any suicidal or homicidal ideation, intent or plan. Denies any auditory or visual hallucinations. Patient denies any side effects from the medications and has been compliant with meds. Mental status exam: General Appearance: Patient appears to be stated age, mildly obese female, mildly disheveled. Behavior: No agitated behavior. Patient is calm and directable Speech: Patient's speech is fluent and non-pressured. Mood/Affect: Mood is better, affect is congruent and constricted. improving Suicidality/Homicidality: Patient denies having any suicidal or homicidal ideation intent or plan. Perceptions: Patient denies any auditory or visual hallucinations. Though content/process: There is no evidence of any overt delusional thought content and thought process is concrete. focused on discharge Memory and concentration: AOX3, grossly intact for the purposes of this session Judgment and insight: chronically poor, Improving Diagnostic impression: Adjustment disorder with mixed emotional features Schizoaffective disorder unspecified Methamphetamine and cocaine use disorder by history Rule out alcohol use disorder unspecified Assessment/Plan: Continue with current diagnosis. Patient continues to meet criteria for inpatient psychiatric admission for symptom stabilization and safety. Medications: Welbutrin XL 150mg qd for mood/anxiety. received Prolixin 50 mg IM injection on 04/22 and her next dose is due 05/06/23 Will not prescribe Adderall due to risk of dependence and psychosis. Monitor for medication compliance and for any psychotropic medication side effects. Social work on board for discharge planning. Will continue to monitor ongoing response to treatment. Encouraged participation in milieu. Discharge Thursday, if patient continues to psychiatrically improve. patient will not qualify for a care home and will be set up again with act team for close follow-up and also would be able to be enrolled in [employer] for social interaction daily.
[2023-04-23] MEDS: LORazepam 1 MG TAB PO PRN (21:31)
[2023-04-24] MEDS: NICOTINE 14MG/24HR PATCH TRANSDERM SCH (08:50)
[2023-04-24] MEDS: buPROPion XL 150 MG TAB.ER.24H PO SCH (08:50)
[2023-04-24] MEDS: NYSTATIN 100,000 UNIT/GM POWD 15 GM TOPICAL SCH (08:51)
[2023-04-24] MEDS: CLOTRIMAZOLE 1% CREAM 30 GM TUBE TOPICAL SCH (08:51)
[2023-04-24] MEDS: ZINC OXIDE PASTE (Z-GUARD) 1 APPLIC TOPICAL SCH (09:06)
[2023-04-24 09:07] VITALS: BP 112/73; PULSE 91; TEMP 96.9
--- NOTE | 2023-04-24 10:30 | P.DS ---
Providers Date of admission: 04/16/23 14:41 Expected date of discharge: 04/24/23 Attending physician: René Bailey MD Consults: 04/16/23 14:48 Consult Physician Routine Consulting Provider: Jacob William Consult Reason/Comments: H&P Do you want consulting provider notified?: Yes Primary care physician: Jacob William - Discharge Diagnosis(es) (1) Adjustment disorder with mixed emotional features Current Visit: Yes Status: Acute Priority: High (2) Schizoaffective disorder Current Visit: Yes Status: Acute Priority: High (3) History of methamphetamine abuse Current Visit: Yes Status: Acute Priority: Medium (4) History of cocaine use Current Visit: Yes Status: Acute Priority: Medium (5) Nicotine dependence Current Visit: Yes Status: Acute Priority: Low Hospital Course: Admission HPI: Admission note was completed by Dr Ramirez "This is a psychiatric assessment on Noelle Wakefield who is a 48-year-old female with a diagnosis of schizoaffective disorder The patient is hospitalized after acknowledging suicidal ideations where she wanted to kill herself with a knife Patient reports that she does not want to be living alone She also reports that she does not have any other outlet where she has no TV or phone and feels very lonely and isolated She admits feeling helpless and hopeless Patient is currently not on any oral medications but gets Prolixin dec IM 50 mg every month for the next shot due on Patient is limited in her verbal output and does not give any details and keeps wanting to go to sleep Further information was obtained from the chart review which was provided from [facility] where her last assessment was from 02-09 through video conference patient at that time was also tested for drug screening and was positive for amphetamines and methamphetamine Patient at that time and reported that she had not used meth for about 2 weeks but was using crack cocaine Patient currently denies any substance use patient reports that she does hear voices but did not give any specifics that also is a history of some intermittent alcohol use chart also reveals multiple psychiatric hospitalizations in the past were several dates were mentioned that includes 08/18/2022, 12/11/2020, 08/20/2020, for 221, 02/11/2019." Hospital course: Upon admission to the unit patient was directable and agreeable to commence treatment and signed adult voluntary form . Patient was initially fairly isolative however with time and treatment she eventually got along well with other patients on the unit and followed unit protocol. Patient was compliant with the medications and denied any side effects throughout hospital course. Patient was started on a low-dose of Wellbutrin 150 mg XL for mood. The patient was also resumed back on her home dose of Prolixin D to 2 mg IM every 14 days. She was given her regular scheduled dose on 04/22 and tolerated it well, next dose will be due on 05/06. Patient spoke of her stressors and engaged in therapy both group and individual. Patient was also seen by medical team for history and physical exam. Patient was seen by PCP for medical follow-up and was given bolus nystatin powder and also Lotrimin cream for intertrigo and will continue to all along as an outpatient. Throughout the course of the hospitalization patient gradually improved with regards to mood, anxiety, psychosis, sleep and returned back to their baseline level of functioning. On the day of discharge patient denied any suicidal or homicidal ideations intent or plan denied any auditory or visual hallucinations. Patient endorsed wanting to live for her health and her future. The patient denied any access to guns or weapons. Patient denied any paranoia and did not endorse any delusions. Patient does have a significant history of substance abuse and was counseled on abstaining from all substances including alcohol and marijuana. Patient was offered however declined inpatient substance-abuse rehab. Patient elected to do outpatient substance use treatment program through [facility]. The patient was warned about the possible negative effects on her health and mental state if she abuses stimulants or cocaine well on current medications, patient verbally understood and agreed. Patient was also counseled on the medications and need for regular compliance and was encouraged to follow-up with their outpatient appointment for mental health and also for primary care. Patient will be continued to be followed up closely by act team. Mental status exam: General Appearance: Patient appears to be mildly overweight, stated age is alert, pleasant, and cooperative. Patient is in no acute distress and has improved hygiene and grooming Behavior: Patient is calmly seated without any agitated behavior. Speech: Patient's speech is fluent and nonpressured. Mood/Affect: Patient reports their mood is "good", affect is congruent and euthymic. Suicidality/Homicidality: Patient denies having any suicidal or homicidal ideation intent or plan. Perceptions: Patient denies any auditory or visual hallucinations. Though content/process: There is no evidence of any delusional thought content and thought process is linear and goal-directed. more future oriented Memory and concentration: AOX3, grossly intact for the purposes of this session. Can spell "WORLD" backwards correctly. Judgment and insight: improved with guarded prognosis Impression: Adjustment disorder with mixed emotional features Schizoaffective disorder Methamphetamine and cocaine use disorder by history Nicotine dependence Plan: -Continue with discharge today as patient has improved and stabilized psychiatrically and is not currently an imminent threat to herself and/or others. Patient will remain at chronically elevated risk for harm to self and/or others due to her impulsivity and substance abuse. -Continue medications: Wellbutrin XL 150 mg daily for mood, Prolixin D 50 mg IM every 14 days, last dose was given on 04/22 and next dose will be given by act team on 05/06. -Patient was counseled on the need for medication compliance and appropriate follow-up at mental health and also primary care for medical issues. Patient verbalized understanding and agreed. -Social work to help arrange patient's discharge today. Social work also to arrange for patients follow up appointments with [facility] for psychiatric care along with follow up with primary care provider. Patient will continue to be followed along closely by act team. -Patient counseled on abstaining from recreational drugs and marijuana and alcohol. Was informed/educated on the adverse effects on their physical and mental health. Patient verbally agreed and understood. Patient was offered substance abuse treatment however declined at this time. -Patient was instructed to return to the hospital or seek immediate medical care if their psychiatric or medical symptoms do worsen or reoccur. Allergies Allergy/AdvReac Type Severity Reaction Status Date / Time haloperidol From Haldol Allergy Unknown Verified 04/15/23 22:28 haloperidol lactate Allergy Unknown Verified 04/15/23 22:28 From Haldol paliperidone From Invega Allergy Unknown Verified 04/15/23 22:28 Penicillins Allergy Unknown Verified 04/15/23 22:28 quetiapine fumarate Allergy Unknown Verified 04/15/23 22:28 From Seroquel zolpidem tartrate Allergy Unknown Verified 04/15/23 22:28 From Ambien Laboratory Results WBC 9.3 k/uL (3.8-10.6) 04/16/23 03:14 RBC 5.46 m/uL (3.80-5.40) H 04/16/23 03:14 Hgb 15.8 gm/dL (11.4-16.0) 04/16/23 03:14 Hct 46.9 % (34.0-46.0) H 04/16/23 03:14 MCV 86.0 fL (80.0-100.0) 04/16/23 03:14 MCH 28.9 pg (25.0-35.0) 04/16/23 03:14 MCHC 33.6 g/dL (31.0-37.0) 04/16/23 03:14 RDW 14.3 % (11.5-15.5) 04/16/23 03:14 Plt Count 314 k/uL (150-450) 04/16/23 03:14 MPV 7.5 04/16/23 03:14 Neutrophils % 64 % 04/16/23 03:14 Lymphocytes % 22 % 04/16/23 03:14 Monocytes % 7 % 04/16/23 03:14 Eosinophils % 5 % 04/16/23 03:14 Basophils % 1 % 04/16/23 03:14 Neutrophils # 5.9 k/uL (1.3-7.7) 04/16/23 03:14 Lymphocytes # 2.0 k/uL (1.0-4.8) 04/16/23 03:14 Monocytes # 0.6 k/uL (0-1.0) 04/16/23 03:14 Eosinophils # 0.5 k/uL (0-0.7) 04/16/23 03:14 Basophils # 0.1 k/uL (0-0.2) 04/16/23 03:14 Sodium 139 mmol/L (137-145) 04/16/23 03:14 Potassium 4.2 mmol/L (3.5-5.1) 04/16/23 03:14 Chloride 104 mmol/L (98-107) 04/16/23 03:14 Carbon Dioxide 24 mmol/L (22-30) 04/16/23 03:14 Anion Gap 11 mmol/L 04/16/23 03:14 BUN 12 mg/dL (7-17) 04/16/23 03:14 Creatinine 0.66 mg/dL (0.52-1.04) 04/16/23 03:14 Est GFR (CKD-EPI)AfAm >90 (>60 ml/min/1.73 sqM) 04/16/23 03:14 Est GFR (CKD-EPI)NonAf >90 (>60 ml/min/1.73 sqM) 04/16/23 03:14 Glucose 100 mg/dL (74-99) H 04/16/23 03:[address] Glu mg/dL 117 mg/dL 04/16/23 03:14 Hemoglobin A1c 5.7 % (<=6.0) 04/16/23 03:14 Calcium 9.1 mg/dL (8.4-10.2) 04/16/23 03:14 Total Bilirubin 0.5 mg/dL (0.2-1.3) 04/16/23 03:14 AST 22 U/L (14-36) 04/16/23 03:14 ALT 24 U/L (4-34) 04/16/23 03:14 Alkaline Phosphatase 83 U/L (38-126) 04/16/23 03:14 Total Protein 7.2 g/dL (6.3-8.2) 04/16/23 03:14 Albumin 3.8 g/dL (3.5-5.0) 04/16/23 03:14 TSH 2.260 mIU/L (0.465-4.680) 04/16/23 03:14 Urine Color Yellow 04/16/23 03:14 Urine Appearance Clear (Clear) 04/16/23 03:14 Urine pH 5.5 (5.0-8.0) 04/16/23 03:14 Ur Specific [place] 1.015 (1.001-1.035) 04/16/23 03:14 Urine Protein Negative (Negative) 04/16/23 03:14 Urine Glucose (UA) Negative (Negative) 04/16/23 03:14 Urine Ketones Negative (Negative) 04/16/23 03:14 Urine Blood Negative (Negative) 04/16/23 03:14 Urine Nitrite Negative (Negative) 04/16/23 03:14 Urine Bilirubin Negative (Negative) 04/16/23 03:14 Urine Urobilinogen <2.0 mg/dL (<2.0) 04/16/23 03:14 Ur Leukocyte Esterase Trace (Negative) H 04/16/23 03:14 Urine RBC 1 /hpf (0-5) 04/16/23 03:14 Urine WBC 5 /hpf (0-5) 04/16/23 03:14 Ur Squamous Epith Cells 3 /hpf (0-4) 04/16/23 03:14 Urine Bacteria Rare /hpf (None) H 04/16/23 03:14 Hyaline Casts 1 /lpf (0-2) 04/16/23 03:14 Urine Mucus Few /hpf (None) H 04/16/23 03:14 Salicylates <1.0 mg/dL 04/16/23 03:14 Urine Opiates Screen Not Detected (NotDetected) 04/16/23 03:14 Ur Oxycodone Screen Not Detected (NotDetected) 04/16/23 03:14 Urine Methadone Screen Not Detected (NotDetected) 04/16/23 03:14 Acetaminophen <10.0 ug/mL 04/16/23 03:14 Ur Barbiturates Screen Not Detected (NotDetected) 04/16/23 03:14 U Tricyclic Antidepress Not Detected (NotDetected) 04/16/23 03:14 Ur Phencyclidine Scrn Not Detected (NotDetected) 04/16/23 03:14 Ur Amphetamines Screen Not Detected (NotDetected) 04/16/23 03:14 U Methamphetamines Scrn Not Detected (NotDetected) 04/16/23 03:14 U Benzodiazepines Scrn Not Detected (NotDetected) 04/16/23 03:14 Urine Cocaine Screen Detected (NotDetected) H 04/16/23 03:14 U Marijuana (THC) Screen Not Detected (NotDetected) 04/16/23 03:14 Influenza Type A (PCR) Not Detected (Not Detectd) 04/16/23 03:14 Influenza Type B (PCR) Not Detected (Not Detectd) 04/16/23 03:14 RSV (PCR) Not Detected (Not Detectd) 04/16/23 03:14 SARS-CoV-2 (PCR) Not Detected (Not Detectd) 04/20/23 18:06 Vital Signs Temp 96.9 F L 04/24/23 08:54 Pulse 91 04/24/23 08:54 Resp 18 04/24/23 08:54 BP 112/73 04/24/23 08:54 Pulse Ox 96 04/24/23 08:54 FiO2 Patient Condition at Discharge: Stable Plan - Discharge Summary Discharge Rx Participant: No New Discharge Prescriptions: New Clotrimazole Cream [Lotrimin Cream] 1 applic TOPICAL BID 30 Days #1 each Nystatin 100,000 Unit/gm Powd [Mycostatin Powder] 1 applic TOPICAL TID 30 Days #1 each Nicotine 14Mg/24Hr Patch [Habitrol] 1 patch TRANSDERM DAILY 14 Days #14 patch buPROPion XL [Wellbutrin XL] 150 mg PO DAILY 30 Days #30 tab Continue fluPHENAZine decanoate [Prolixin Decanoate] 50 mg IM Q14D #1 ml Discharge Medication List Clotrimazole Cream [Lotrimin Cream] 1 applic TOPICAL BID 30 Days #1 each 04/24/23 [Rx] Nicotine 14Mg/24Hr Patch [Habitrol] 1 patch TRANSDERM DAILY 14 Days #14 patch 04/24/23 [Rx] Nystatin 100,000 Unit/gm Powd [Mycostatin Powder] 1 applic TOPICAL TID 30 Days #1 each 04/24/23 [Rx] buPROPion XL [Wellbutrin XL] 150 mg PO DAILY 30 Days #30 tab 04/24/23 [Rx] fluPHENAZine decanoate [Prolixin Decanoate] 50 mg IM Q14D #1 ml 04/24/23 [Rx] Follow up Appointment(s)/Referral(s): [facility] [Outside] - 1 Week [facility] [Outside] - 04/29/23 4:30 pm (04-29-23 at 4:[address] Arthur) Jacob William MD [Primary Care Provider] - 1-2 days Patient Instructions/Handouts: How to Stop Smoking (DC), Hallucinations (ED) Activity/Diet/Wound Care/Special Instructions: Avoid the use of street drugs and alcohol. Take all medications as prescribed. When you are in need of refills on your medications, please contact your medical provider and/or outpatient psychiatrist/provider to have this done. Please go to your scheduled outpatient appointment for aftercare treatment. If symptoms return or become worse, call the crisis line at and/or go to the nearest emergency room for evaluation. National Suicide Hotline 988. Discharge Disposition: HOME SELF-CARE
== END 2023-04-24 11:29 | disposition home or self-care (01) | DRG 885 ==
LOC: EC 21:23 → 3MHU 04-16 14:41
PROVIDERS: ADMIT Psychiatry & Neurology Psychiatry; ATTEND Psychiatry & Neurology Psychiatry
DX: F25.9 Schizoaffective disorder, unspecified (principal); R45.851 Suicidal ideations; F43.23 Adjustment disorder with mixed anxiety and depressed mood; F15.10 Other stimulant abuse, uncomplicated; F14.10 Cocaine abuse, uncomplicated; L30.4 Erythema intertrigo; Z11.52 Encounter for screening for COVID-19; F17.210 Nicotine dependence, cigarettes, uncomplicated; Z71.89 Other specified counseling; Z60.2 Problems related to living alone; Z28.311 Partially vaccinated for COVID-19; Z88.0 Allergy status to penicillin; Z88.8 Allergy status to other drugs, medicaments and biological substances
CPT/HCPCS: 36415; 80053; 80143; 80179; 80306; 81001; 82075; 83036; 84443; 85025; 87635; 87636; 99285